=== PATIENT | male | born 1955 | race American Indian/Alaskan Native ===

== ENCOUNTER 2018-02-19 14:27 | Inpatient (IN) | payer MEDICAID, MEDICARE ==
[2018-02-19] MEDS ORDERED: NACL 0.9% 1000 ML 1,000 ML IV ONE (14:39)
--- NOTE | 2018-02-19 14:45 | Emergency Department Report ---
ED GI Bleed HPI - General Chief complaint: GI Bleed Stated complaint: GI BLEED Time Seen by Provider: 02/19/18 14:44 Source: patient, EMS Mode of arrival: Stretcher Limitations: Physical Limitation, Other - History of Present Illness Initial comments: 62-year-old male presents to the ER for bright red blood via rectum. Patient states that he was at his custodial and noticed a large bowel movement of blood in his bed. Patient was then transported via EMS from a nurse come to the ER for evaluation. Patient denies abdominal pain. Patient denies any vomiting. Patient denies fever chills. Patient denies chest pain shortness of breath. She is currently taking aspirin and senia GANDHI complaint: gross hematochezia -: Sudden Consistency: constant Improves with: none Worsens with: none Context: blood thinners Associated Symptoms: denies: abdominal pain, nausea, vomiting, epistaxis, fever/ chills, headaches, loss of appetite, malaise, easy bruising, rash, other bleeding, shortness of breath, syncope, weakness - Related Data Allergies Allergy/AdvReac Type Severity Reaction Status Date / Time linezolid Allergy Unknown Verified 02/19/18 14:30 morphine Allergy Unknown Verified 02/19/18 14:30 vancomycin Allergy Unknown Verified 02/19/18 14:30 ED Review of Systems ROS: Stated complaint: GI BLEED Other details as noted in HPI Constitutional: denies: chills, fever Eyes: denies: eye pain, eye discharge, vision change ENT: denies: ear pain, throat pain Respiratory: denies: cough, shortness of breath, wheezing Cardiovascular: denies: chest pain, palpitations Endocrine: no symptoms reported Gastrointestinal: denies: abdominal pain, nausea, diarrhea Genitourinary: denies: urgency, dysuria Musculoskeletal: denies: back pain, joint swelling, arthralgia Skin: denies: rash, lesions Neurological: denies: headache, weakness, paresthesias Psychiatric: denies: anxiety, depression Hematological/Lymphatic: denies: easy bleeding, easy bruising ED Past Medical Hx - Past Medical History Previous Medical History?: Yes Hx Hypertension: Yes Hx Diabetes: Yes Hx Renal Disease: Yes (ARF) Additional medical history: encephalopathy. afib. Chronic respiratory Failure - Surgical History Past Surgical History?: No - Family History Family history: hypertension - Social History Smoking Status: Former Smoker Substance Use Type: Alcohol ED Physical Exam - General Limitations: Physical Limitation, Other General appearance: alert, in no apparent distress - Head Head exam: Present: atraumatic, normocephalic - Eye Eye exam: Present: normal appearance - ENT ENT exam: Present: mucous membranes moist - Neck Neck exam: Present: normal inspection - Respiratory Respiratory exam: Present: normal lung sounds bilaterally. Absent: respiratory distress - Cardiovascular Cardiovascular Exam: Present: regular rate, normal rhythm. Absent: systolic murmur, diastolic murmur, rubs, gallop - GI/Abdominal GI/Abdominal exam: Present: soft, normal bowel sounds - Rectal Rectal exam: Present: deferred - Extremities Exam Extremities exam: Present: normal inspection - Back Exam Back exam: Present: normal inspection - Neurological Exam Neurological exam: Present: alert, oriented X3 - Psychiatric Psychiatric exam: Present: normal affect, normal mood - Skin Skin exam: Present: warm, dry, intact, normal color. Absent: rash ED Course Vital Signs 02/19/18 02/19/18 02/19/18 14:38 15:15 15:20 Temperature 98.9 F 98.8 F Pulse Rate 108 H 78 Respiratory 20 22 25 H Rate Blood Pressure Blood Pressure 134/59 118/74 [Right] O2 Sat by Pulse 99 67 L 97 Oximetry 02/19/18 02/19/18 02/19/18 15:37 15:45 16:00 Temperature Pulse Rate 78 79 Respiratory 20 14 13 Rate Blood Pressure 111/82 117/82 Blood Pressure [Right] O2 Sat by Pulse 100 97 Oximetry 02/19/18 02/19/18 02/19/18 16:15 16:30 16:45 Temperature Pulse Rate 91 H 104 H 95 H Respiratory 19 16 12 Rate Blood Pressure 106/70 113/73 113/75 Blood Pressure [Right] O2 Sat by Pulse 96 99 99 Oximetry 02/19/18 02/19/18 02/19/18 17:20 17:30 18:22 Temperature Pulse Rate 99 H 100 H 83 Respiratory 19 19 Rate Blood Pressure 123/76 120/69 Blood Pressure [Right] O2 Sat by Pulse 93 100 Oximetry 02/19/18 02/19/18 02/19/18 18:50 19:05 19:35 Temperature 98.0 F 98.7 F 98.5 F Pulse Rate 92 H 92 H 87 Respiratory 18 17 16 Rate Blood Pressure 133/82 112/78 120/64 Blood Pressure [Right] O2 Sat by Pulse 98 99 99 Oximetry - Reevaluation(s) Reevaluation #1: Patient hypoxic upon arrival to the ER. Patient was placed on BiPAP. 02/19/18 14:45 H and has improved and is maintaining a good sat 98% on BiPAP. 02/19/18 16:16 Reevaluation #2: Plan of care with patient and family. Patient and family. Plan of care and admission. Patient was admitted to the hospitalist service for further evaluation. 02/19/18 16:28 - Consultations Consultation #1: Os was consulted for admission. Hospitalist to assume care. Dr. Duffy to admit patient 02/19/18 16:28 Consultation #2: Stress case with GI. Patient to be admitted to the hospitalist service and GI will consult on him in the morning. GI recommends 2 units and vit k and monitoring the CBC. Full report given to Dr. Galvin 02/19/18 17:18 02/19/18 17:20 ED Medical Decision Making - Lab Data Result diagrams: 02/19/18 14:57 02/19/18 14:57 - EKG Data -: EKG Interpreted by Oh EKG shows normal: axis, intervals, QRS complexes, ST-T waves Rate: tachycardia - EKG Data Interpretation: other (afib/ ) - Radiology Data Radiology results: report reviewed FINAL REPORT EXAM: CT ABDOMEN PELVIS WO CON HISTORY: gi bleed TECHNIQUE: CT examination of the ABDOMEN without IV contrast CT examination of the PELVIS without IV contrast PRIORS: None. FINDINGS: Degenerative change in the regional skeleton. No evidence of acute fracture or significant osseous lesion. Small bilateral pleural effusions layer posteriorly, slightly more prominent on the left. There is adjacent bilateral lung base atelectasis and/or pneumonia, slightly more prominent on the left. Slight coronary artery calcification. Normal noncontrast appearance of the liver, adrenals, pancreas, and spleen. Normal caliber abdominal aorta with slight calcified atherosclerotic plaque. Normal caliber IVC. Subtle calcification in the gallbladder lumen may be small gallstones. No biliary distention. Large body habitus limits the examination. Increased soft tissue attenuates the CT x-ray beam and degrades image quality. Visible kidneys and ureters appear normal. Intact abdominal wall. With large body habitus, left lateral abdomen is partially excluded from the field of view, limiting the examination. Small fat containing bilateral inguinal hernia. Small fat containing umbilical hernia. No retroperitoneal adenopathy. No mesenteric mass. Normal-appearing stomach and duodenum. No small bowel distention in the abdomen and pelvis. No pelvic free fluid. Normal-appearing urinary bladder, prostate, and seminal vesicles. Nonspecific mural thickening in the distal rectum. No visible mass in the colon. Gross gas-filled distention of the sigmoid colon and transverse colon. There is also gross gas-filled distention of the ascending colon. No evidence of free air or gross ascites. Gas-filled distention of the cecum. Normal-appearing terminal ileum and appendix. No CT evidence of visible obstructing source. IMPRESSION: Nonspecific mural thickening in the distal rectum may be secondary to proctitis. Differential includes neoplasm Diffuse gas-filled distention of the ascending and transverse colon as well as sigmoid colon without CT evidence of obstructing source. This may reflect severe paralytic ileus Small bilateral pleural effusions with adjacent lung base atelectasis and/or pneumonia, slightly more prominent on the left Coronary artery calcification Subtle gallbladder calcification may be small gallstones Large body habitus limits the examination Small fat containing hernias Transcribed By: BAL Dictated By: DALTON HARRINGTON MD Electronically Authenticated By: DALTON HARRINGTON MD Signed Date/Time: 02/19/18 3644 - Medical Decision Making Patient is 62-year-old male who presents to emergency room with bright red blood per rectum. Patient has a lower GI bleed. GI has been consulted. Hospitalist service has been consulted for admission. Patient to be admitted to the hospitalist service for further evaluation and treatment. Patient found to be anemic due to acute blood loss. She will be transfused 2 units of blood and continue to monitor. - Differential Diagnosis gi bleed. brigth red blood per rectum. anemia. Critical Care Time: Yes Critical care attestation.: If time is entered above; I have spent that time in minutes in the direct care of this critically ill patient, excluding procedure time. Critical Care Time: 45 minutes for cc time ED Disposition Clinical Impression: GI bleed, Anemia due to blood loss, acute, Hypoxia, Obesity hypoventilation syndrome, Atrial fibrillation and flutter Respiratory failure Qualifiers: Chronicity: acute on chronic Respiratory failure complication: hypoxia Qualified Code(s): J96.21 - Acute and chronic respiratory failure with hypoxia HTN (hypertension) Qualifiers: Hypertension type: essential hypertension Qualified Code(s): I10 - Essential ( primary) hypertension Disposition: 09 OP ADMIT IP TO THIS HOSP Is pt being admited?: Yes Does the pt Need Aspirin: No Condition: Critical Time of Disposition: 16:27
[2018-02-19 15:19] LABS: Basophils % (Auto) 0.6 % (0.0-1.8); Eosinophils # (Auto) 0.1 K/mm3 (0.0-0.4); Eosinophils % (Auto) 1.8 % (0.0-4.3); Hematocrit 24.1 % (35.5-45.6); Hemoglobin 7.8 gm/dl (11.8-15.2); Lymphocytes # (Auto) 1.5 K/mm3 (1.2-5.4); Lymphocytes % (Auto) 20.6 % (13.4-35.0); Mean Corpuscular HGB Conc 32 % (32-34); Mean Corpuscular Hemoglobin 30 pg (28-32); Mean Corpuscular Volume 91 fl (84-94); Monocytes # (Auto) 0.7 K/mm3 (0.0-0.8); Monocytes % (Auto) 9.9 % (0.0-7.3); Platelet Count 347 K/mm3 (140-440); Red Blood Count 2.64 M/mm3 (3.65-5.03); Red Cell Distribution Width 16.4 % (13.2-15.2)
[2018-02-19 15:29] LABS: INR 1.32 (0.87-1.13); Partial Thromboplastin Time 31.9 Sec. (24.2-36.6)
[2018-02-19 15:36] LABS: Alanine Aminotransferase 43 units/L (7-56); Albumin 2.8 g/dL (3.9-5); BUN/Creatinine Ratio 16; Blood Urea Nitrogen 14 mg/dL (9-20); Calcium 9.1 mg/dL (8.4-10.2); Hemolysis Index 0; Lipase 9 units/L (13-60)
--- NOTE | 2018-02-19 16:22 | History and Physical Report ---
History of Present Illness Chief complaint: blood was all over the place History of present illness: 62 YO Male [facility] Facility Resident at [facility] undergoing inpatient rehab with MO, Debility, Lymphedema, Chronic Respiratory Failure, HTN , DM, Atrial Fib on therapeutic anticoagulation, Obesity Hypoventilation presents to ED for evaluation. Pt states that he went to the restroom and had a large bloody bowel movement. EMS notified, and patient transported to [facility] for care and evaluation. Pt seen and evaluated in ED and found to have Chronic Respiratory Failure as well as GI Bleed. Pt denies fever, chills, CP, Palpitations, NVD, Trauma, abdominal pain, epistaxis, headaches, loss of appetite, malaise, easy bruising, rash, shortness of breath, syncope, weakness, skin rash, or recent ill contacts. GI consulted in ED. Pt admitted to medical floor. Past History Past Medical History: atrial fib, diabetes, hypertension Past Surgical History: No surgical history, Other Social history: single Family history: hypertension Medications and Allergies Allergies Allergy/AdvReac Type Severity Reaction Status Date / Time linezolid Allergy Unknown Verified 02/19/18 14:30 morphine Allergy Unknown Verified 02/19/18 14:30 vancomycin Allergy Unknown Verified 02/19/18 14:30 Active Meds: Active Medications Sodium Chloride (Nacl 0.9% 1000 Ml) 1,000 mls @ 250 mls/hr IV ONCE ONE Stop: 02/19/18 18:38 Review of Systems Constitutional: no weight loss, no weight gain, no fever, no chills Ears, nose, mouth and throat: no ear pain, no ear discharge, no tinnitis, no decreased hearing, no nose pain, no nasal congestion Cardiovascular: no chest pain, no orthopnea, no palpitations, no rapid/ irregular heart beat, no edema, no syncope Respiratory: no cough, no cough with sputum, no excessive sputum Gastrointestinal: BRBPR, melena, no nausea, no vomiting, no diarrhea, no coffee ground emesis, no loss of appetite, no early satiety, no heartburn Genitourinary Male: no hematuria, no flank pain, no discharge, no urinary frequency, no urinary hesitancy Rectal: no pain, no incontinence, no bleeding Musculoskeletal: no neck stiffness, no neck pain, no shooting arm pain, no arm numbness/tingling, no low back pain, no shooting leg pain Integumentary: no rash, no pruritis, no redness, no sores, no wounds Neurological: no paralysis, no weakness, no parathesias, no numbness, no tingling, no seizures Psychiatric: no memory loss, no change in sleep habits, no sleep disturbances, no insomnia, no hypersomnia, no change in appetite, no change in libido, no suicidal ideation Endocrine: no heat intolerance, no polyphagia, no excessive thirst, no polydipsia, no polyuria, no nocturia Hematologic/Lymphatic: no easy bruising, no easy bleeding, no lymphadenopathy, no lymphedema Allergic/Immunologic: no urticaria, no allergic rhinitis, no persistent infections, no anaphylaxis, no angioedema Exam - Constitutional Vitals: Temp Pulse Resp BP Pulse Ox 98.8 F 78 14 111/82 100 02/19/18 15:15 02/19/18 15:45 02/19/18 15:45 02/19/18 15:45 02/19/18 15:45 General appearance: Present: mild distress - EENT Eyes: Present: PERRL ENT: hearing intact, clear oral mucosa - Neck Neck: Present: supple, normal ROM - Respiratory Respiratory effort: labored Respiratory: bilateral: diminished - Cardiovascular Rhythm: irregularly irregular - Extremities Extremities: pulses symmetrical, No edema Peripheral Pulses: within normal limits - Abdominal General gastrointestinal: Present: soft, non-tender, non-distended, normal bowel sounds Male genitourinary: Present: normal - Integumentary Integumentary: Present: clear, warm, dry - Musculoskeletal Musculoskeletal: gait normal, strength equal bilaterally - Psychiatric Psychiatric: appropriate mood/affect, intact judgment & insight - Neurologic Neurologic: CNII-XII intact, moves all extremities Results - Labs CBC & Chem 7: 02/19/18 14:57 02/19/18 14:57 Labs: Abnormal lab results 02/19/18 02/19/18 02/19/18 Range/Units 14:57 14:57 14:57 RBC 2.64 L (3.65-5.03) M/mm3 Hgb 7.8 L (11.8-15.2) gm/dl Hct 24.1 L (35.5-45.6) % RDW 16.4 H (13.2-15.2) % [place] % (Auto) 9.9 H (0.0-7.3) % PT 17.1 H (12.2-14.9) Sec. INR 1.32 H (0.87-1.13) Chloride 94.4 L (98-107) mmol/L Carbon Dioxide 41 H* (22-30) mmol/L Glucose 117 H (75-100) mg/dL AST 44 H (5-40) units/L Albumin 2.8 L (3.9-5) g/dL Lipase 9 L (13-60) units/L Assessment and Plan - Patient Problems (1) GI bleed Current Visit: Yes Status: Acute Qualifiers: GI bleed type/associated pathology: anorectal hemorrhage Qualified Code(s) : K62.5 - Hemorrhage of anus and rectum Plan to address problem: CT ABdomen/Pelvis, GI consulted in ED, PPI therapy, repeat cbc in am. Hgb stable , no transfusion at this time. (2) Respiratory failure Current Visit: Yes Status: Acute Qualifiers: Chronicity: acute on chronic Respiratory failure complication: hypoxia Qualified Code(s): J96.21 - Acute and chronic respiratory failure with hypoxia Plan to address problem: NIPPV, supplemental oxygen, pulse oximetry, chest x ray. (3) Obesity hypoventilation syndrome Current Visit: Yes Status: Acute Plan to address problem: NIPPV, supplemental oxygen, supportive care, Incentive spirometry. (4) Atrial fibrillation and flutter Current Visit: Yes Status: Acute Plan to address problem: continue therapeutic anticoagulation, supportive care (5) Diabetes Current Visit: Yes Status: Acute Plan to address problem: AD diet, insulin, accu check (6) HTN (hypertension) Current Visit: Yes Status: Acute Qualifiers: Hypertension type: essential hypertension Qualified Code(s): I10 - Essential (primary) hypertension Plan to address problem: monitor bp q shift, continue prehospital medication. (7) DVT prophylaxis Current Visit: Yes Status: Acute Plan to address problem: continue therapeutic anticoagulation.
[2018-02-19] MEDS ORDERED: SODIUM CHLORIDE FLUSH SYRINGE 10 ML IV PRN (17:01)
[2018-02-19] MEDS ORDERED: TYLENOL PO PRN (17:01)
[2018-02-19] MEDS ORDERED: ZOFRAN IV PRN (17:01)
[2018-02-19] MEDS ORDERED: PROVENTIL IH PRN (17:01)
[2018-02-19] MEDS ORDERED: NACL 0.9% 500 ML 500 ML IV ONE (17:19)
--- NOTE | 2018-02-19 17:57 | Cat Scan Report ---
FINAL REPORT EXAM: CT ABDOMEN PELVIS WO CON HISTORY: gi bleed TECHNIQUE: CT examination of the ABDOMEN without IV contrast CT examination of the PELVIS without IV contrast PRIORS: None. FINDINGS: Degenerative change in the regional skeleton. No evidence of acute fracture or significant osseous lesion. Small bilateral pleural effusions layer posteriorly, slightly more prominent on the left. There is adjacent bilateral lung base atelectasis and/or pneumonia, slightly more prominent on the left. Slight coronary artery calcification. Normal noncontrast appearance of the liver, adrenals, pancreas, and spleen. Normal caliber abdominal aorta with slight calcified atherosclerotic plaque. Normal caliber IVC. Subtle calcification in the gallbladder lumen may be small gallstones. No biliary distention. Large body habitus limits the examination. Increased soft tissue attenuates the CT x-ray beam and degrades image quality. Visible kidneys and ureters appear normal. Intact abdominal wall. With large body habitus, left lateral abdomen is partially excluded from the field of view, limiting the examination. Small fat containing bilateral inguinal hernia. Small fat containing umbilical hernia. No retroperitoneal adenopathy. No mesenteric mass. Normal-appearing stomach and duodenum. No small bowel distention in the abdomen and pelvis. No pelvic free fluid. Normal-appearing urinary bladder, prostate, and seminal vesicles. Nonspecific mural thickening in the distal rectum. No visible mass in the colon. Gross gas-filled distention of the sigmoid colon and transverse colon. There is also gross gas-filled distention of the ascending colon. No evidence of free air or gross ascites. Gas-filled distention of the cecum. Normal-appearing terminal ileum and appendix. No CT evidence of visible obstructing source. IMPRESSION: Nonspecific mural thickening in the distal rectum may be secondary to proctitis. Differential includes neoplasm Diffuse gas-filled distention of the ascending and transverse colon as well as sigmoid colon without CT evidence of obstructing source. This may reflect severe paralytic ileus Small bilateral pleural effusions with adjacent lung base atelectasis and/or pneumonia, slightly more prominent on the left Coronary artery calcification Subtle gallbladder calcification may be small gallstones Large body habitus limits the examination Small fat containing hernias
[2018-02-19] MEDS ORDERED: NACL 0.9% 500 ML 500 ML ONE (18:15)
[2018-02-20] MEDS: PROTONIX IV SCH ×3 (00:01→22:05)
[2018-02-20] MEDS: SODIUM CHLORIDE FLUSH SYRINGE 10 ML IV SCH ×3 (00:01→22:30)
[2018-02-20] MEDS ORDERED: NACL 0.9% 500 ML 500 ML ONE ×2 (01:15→20:46)
[2018-02-20] MEDS ORDERED: NACL 0.9% 500 ML IV ONE (01:25)
[2018-02-20 07:05] LABS: Basophils % (Auto) 0.3 % (0.0-1.8); Eosinophils # (Auto) 0.2 K/mm3 (0.0-0.4); Eosinophils % (Auto) 2.7 % (0.0-4.3); Hematocrit 24.3 % (35.5-45.6); Hemoglobin 8.3 gm/dl (11.8-15.2); Lymphocytes # (Auto) 1.6 K/mm3 (1.2-5.4); Mean Corpuscular HGB Conc 34 % (32-34); Mean Corpuscular Hemoglobin 31 pg (28-32); Mean Corpuscular Volume 91 fl (84-94); Monocytes # (Auto) 0.8 K/mm3 (0.0-0.8); Monocytes % (Auto) 10.8 % (0.0-7.3); Platelet Count 329 K/mm3 (140-440); Red Blood Count 2.67 M/mm3 (3.65-5.03); Red Cell Distribution Width 16.7 % (13.2-15.2)
[2018-02-20 07:27] LABS: BUN/Creatinine Ratio 17; Blood Urea Nitrogen 15 mg/dL (9-20); Calcium 9.1 mg/dL (8.4-10.2); Hemolysis Index 11
--- NOTE | 2018-02-20 09:50 | Gastroenterology Consultation ---
History of Present Illness - Reason for Consult Consult date: 02/20/18 GI bleed Requesting physician: SHAKIRA MCKNIGHT III - History of Present Illness Patient is a 62 y/o male with PMH of HTN, DM, A-fib, obesity, lymphedema, and chronic respiratory failure who was brought from [facility] where he is undergoing inpatient rehab for c/o rectal bleeding to which GI has been consulted. Upon admission, he was found to be hypoxic and anemic with H/H 7.8/ 24.1. He was given 2 units PRBCs and placed on BIPAP. This morning patient was resting in bed on venimask w/o acute distress. Reports 1 BM yesterday with dark red mixed with bright red blood. No further active signs of bleeding overnight or this am. No hematemesis or melena. Denies fever, CP, SOB, dizziness, abd pain , N/V, diarrhea, or constipation. States he had a colonoscopy approximately 3-4 years ago at the [facility] with negative results. No known Fhx of colon cancer. Takes ASA and xarelto at home (last dose yesterday). Past History Past Medical History: atrial fib, diabetes, hypertension, other (morbid obesity , lymphedema, and chronic respiratory failure) Past Surgical History: No surgical history Social history: single Family history: hypertension Medications and Allergies Allergies Allergy/AdvReac Type Severity Reaction Status Date / Time linezolid Allergy Unknown Verified 02/19/18 14:30 morphine Allergy Unknown Verified 02/19/18 14:30 vancomycin Allergy Unknown Verified 02/19/18 14:30 Active Meds: Active Medications Acetaminophen (Tylenol) 650 mg PO Q4H PRN PRN Reason: Pain MILD(1-3)/Fever >100.5/MARES Albuterol (Proventil) 2.5 mg IH Q4HRT PRN PRN Reason: Shortness Of Breath Ondansetron HCl (Zofran) 4 mg IV Q8H PRN PRN Reason: Nausea And Vomiting Pantoprazole Sodium (Protonix) 40 mg IV BID [facility] Last Admin: 02/20/18 00:01 Dose: 40 mg Sodium Chloride (Sodium Chloride Flush Syringe 10 Ml) 10 ml IV BID [facility] Last Admin: 02/20/18 00:01 Dose: 10 ml Sodium Chloride (Sodium Chloride Flush Syringe 10 Ml) 10 ml IV PRN PRN PRN Reason: LINE FLUSH Review of Systems - Review of Systems All systems: negative Gastrointestinal: hematochezia Exam - Constitutional Vital Signs: Temp Pulse Resp BP Pulse Ox 98.3 F 110 H 18 114/73 97 02/20/18 05:11 02/20/18 05:11 02/20/18 05:11 02/20/18 05:11 02/20/18 05:11 General appearance: no acute distress, obese (morbidly) - Respiratory Respiratory: bilateral: diminished - Cardiovascular Rhythm: irregularly irregular Extremity abnormal: other (dressing to LLE) - Gastrointestinal General gastrointestinal: Present: soft, non-tender, non-distended, normal bowel sounds, other (obese) - Neurologic Neurological: alert and oriented x3 - Labs CBC & Chem 7: 02/20/18 06:01 02/20/18 06:01 Lab Results: Laboratory Results - last 24 hr 02/19/18 02/19/18 02/19/18 14:57 14:57 14:57 WBC 7.2 RBC 2.64 L Hgb 7.8 L Hct 24.1 L MCV 91 MCH 30 MCHC 32 RDW 16.4 H Plt Count 347 Lymph % (Auto) 20.6 Ellis % (Auto) 9.9 H Eos % (Auto) 1.8 Baso % (Auto) 0.6 Lymph # 1.5 Ellis # 0.7 Eos # 0.1 Baso # 0.0 Seg Neutrophils % 67.1 Seg Neutrophils # 4.9 PT 17.1 H INR 1.32 H APTT 31.9 Sodium 139 Potassium 4.6 Chloride 94.4 L Carbon Dioxide 41 H* Anion Gap 8 BUN 14 Creatinine 0.9 Estimated GFR > 60 BUN/Creatinine Ratio 16 Glucose 117 H Calcium 9.1 Total Bilirubin 0.30 AST 44 H ALT 43 Alkaline Phosphatase 93 Total Protein 7.7 Albumin 2.8 L Albumin/Globulin Ratio 0.6 Lipase 9 L Blood Type Antibody Screen Crossmatch 02/19/18 02/20/18 02/20/18 14:57 06:01 06:01 WBC 7.8 RBC 2.67 L Hgb 8.3 L Hct 24.3 L MCV 91 MCH 31 MCHC 34 RDW 16.7 H Plt Count 329 Lymph % (Auto) 21.0 Ellis % (Auto) 10.8 H Eos % (Auto) 2.7 Baso % (Auto) 0.3 Lymph # 1.6 Ellis # 0.8 Eos # 0.2 Baso # 0.0 Seg Neutrophils % 65.2 Seg Neutrophils # 5.1 PT INR APTT Sodium 145 Potassium 4.2 Chloride 96.6 L Carbon Dioxide 39 H Anion Gap 14 BUN 15 Creatinine 0.9 Estimated GFR > 60 BUN/Creatinine Ratio 17 Glucose 93 Calcium 9.1 Total Bilirubin AST ALT Alkaline Phosphatase Total Protein Albumin Albumin/Globulin Ratio Lipase Blood Type O POSITIVE Antibody Screen Negative Crossmatch See Detail Assessment and Plan 1.hematochezia -HGB 8.3- s/p transfusion of 2 units PRBCs -continue to monitor H/H and transfuse as needed -continue to hold xarelto -BM x 1 yesterday with a large amount of dark red/bright red blood per patient- no active signs of bleeding overnight or this am -last colonoscopy approximately 3-4 years ago at the [facility] with negative results -CT showed mural thickening in the distal rectum (possibly proctitis vs neoplasm ) -etiology unclear -recommend a colonoscopy for further evaluation once respiratory status improves -continue PPI and supportive care -will follow
--- NOTE | 2018-02-20 11:23 | Event Note ---
Date: 02/20/18 Nursing called and reported patient having copious amount of rectal bleeding with bright red blood. Will order a stat CTA for further evaluation. May need IR intervention pending results. Recommend patient be transferred to ICU for closer monitoring. Called and spoke with Dr. James to notify him of patient's current condition.
--- NOTE | 2018-02-20 11:47 | Progress Note ---
Assessment and Plan Assessment and plan: Patient is a 62 yo man from [facility] with a history of functional quadriplegia x 2-3 months from [place], Debility, BLE Lymphedema, Chronic hypoxic Respiratory Failure, HTN, DM, Atrial Fib on therapeutic anticoagulation, Obesity Hypoventilation and LEYDI on cpap (he says all the time) who present to ED with BRBPR. He was transfused 2 units of PRBC and hgb only slightly increased. Now with recurrent significant bleeding scan -Acute GI hemorrhage, suspect Diverticular bleed: d/w GI, Dr. Galvin. CTA or NM bleeding scan, will move to ICU, I notified Dr. Velasquez. Dr. Galvin will contact Dr. Reyes -Acute on chronic blood loss anemia s/p 2 units: will transfuse 2 more units due to active bleeding and move to ICU -Acute on chronic hypoxic respiratory failure: continue O2, consulted Respiratory, ordered nebs, consulted Pulmonology -Severe Obesity, 336 lbs: ? weight limit for CTA vs NM study -Afib/Aflutter, no meds listed in EMR, history of anticoagulation but INR ok: will investigate, d/w Rn -Obesity hypoventilation syndrome/LEYDI: cpap and bipap if needed, consulted Respiratory therapy -Diabetes Mellitus: ssi -HTN (hypertension): monitor bp q shift, continue prehospital medication. -DVT prophylaxis: scd due to gib -Functional quadreplegia: consult OT/PT -Leg wounds: consult wound care full code Move to ICU transfuse 2 more units of prbx CCT 32 minutes History Interval history: Patient was seen and examined. Follow-up on current diagnosis of rectal bleeding. Overnight uneventful. Patient denies any chest pain, shortness breath , nausea/vomiting or severe headaches. Imaging, nursing note, chart, labs and old chart reviewed. Discussed with patient. Initially when I saw patient the rectal bleeding had stopped then GI [employer] TECHNICIAN Anusha called and informed me that the rectal bleeding had returned and he needs ICU admission and cTA abd/pelvis. Hospitalist Physical - Physical exam Narrative exam: GEN: severe chronically debilated appearing, morbid obese bmi 45, mild increase accessory muscles, awake alert orientated HEENT: NCAT, EOMI, PERRL, OP Clear NECK: supple, no adenopathy, no thyromegaly, no JVD CVS/HEART: irregular tachycardia, normal S1S2, pulses present bilaterally CHEST/LUNGS: diminished bs bilateral, Symmetrical chest expansion, good air entry bilaterally GI/Abdomen: soft, NTND, good bowel sounds, no guarding or rebound /Bladder: no suprapubic tenderness, no CVA or paraspinal tenderness EXT/Skin: abrasion on forehead, bilateral knuckles/hands are peeling, legs with severe chronic stasis with lymphedema and wound dsg left leg MSK: lrom leg, left leg with dressing Neuro: CN 2-12 grossly intact, no new focal deficits Psych: calm - Constitutional Vitals: Temp Pulse Resp BP Pulse Ox 98.3 F 110 H 18 114/73 96 02/20/18 05:11 02/20/18 05:11 02/20/18 05:11 02/20/18 05:11 02/20/18 10:00 General appearance: Present: mild distress Results - Labs CBC & Chem 7: 02/20/18 06:01 02/20/18 06:01 Labs: Laboratory Last Values WBC 7.8 K/mm3 (4.5-11.0) 02/20/18 06:01 RBC 2.67 M/mm3 (3.65-5.03) L 02/20/18 06:01 Hgb 8.3 gm/dl (11.8-15.2) L 02/20/18 06:01 Hct 24.3 % (35.5-45.6) L 02/20/18 06:01 MCV 91 fl (84-94) 02/20/18 06:01 MCH 31 pg (28-32) 02/20/18 06:01 MCHC 34 % (32-34) 02/20/18 06:01 RDW 16.7 % (13.2-15.2) H 02/20/18 06:01 Plt Count 329 K/mm3 (140-440) 02/20/18 06:01 Lymph % (Auto) 21.0 % (13.4-35.0) 02/20/18 06:01 [place] % (Auto) 10.8 % (0.0-7.3) H 02/20/18 06:01 Eos % (Auto) 2.7 % (0.0-4.3) 02/20/18 06:01 Baso % (Auto) 0.3 % (0.0-1.8) 02/20/18 06:01 Lymph # 1.6 K/mm3 (1.2-5.4) 02/20/18 06:01 [place] # 0.8 K/mm3 (0.0-0.8) 02/20/18 06:01 Eos # 0.2 K/mm3 (0.0-0.4) 02/20/18 06:01 Baso # 0.0 K/mm3 (0.0-0.1) 02/20/18 06:01 Seg Neutrophils % 65.2 % (40.0-70.0) 02/20/18 06:01 Seg Neutrophils # 5.1 K/mm3 (1.8-7.7) 02/20/18 06:01 PT 17.1 Sec. (12.2-14.9) H 02/19/18 14:57 INR 1.32 (0.87-1.13) H 02/19/18 14:57 APTT 31.9 Sec. (24.2-36.6) 02/19/18 14:57 Sodium 145 mmol/L (137-145) 02/20/18 06:01 Potassium 4.2 mmol/L (3.6-5.0) 02/20/18 06:01 Chloride 96.6 mmol/L (98-107) L 02/20/18 06:01 Carbon Dioxide 39 mmol/L (22-30) H 02/20/18 06:01 Anion Gap 14 mmol/L 02/20/18 06:01 BUN 15 mg/dL (9-20) 02/20/18 06:01 Creatinine 0.9 mg/dL (0.8-1.5) 02/20/18 06:01 Estimated GFR > 60 ml/min 02/20/18 06:01 BUN/Creatinine Ratio 17 % 02/20/18 06:01 Glucose 93 mg/dL (75-100) 02/20/18 06:01 Calcium 9.1 mg/dL (8.4-10.2) 02/20/18 06:01 Total Bilirubin 0.30 mg/dL (0.1-1.2) 02/19/18 14:57 AST 44 units/L (5-40) H 02/19/18 14:57 ALT 43 units/L (7-56) 02/19/18 14:57 Alkaline Phosphatase 93 units/L (35-129) 02/19/18 14:57 Total Protein 7.7 g/dL (6.3-8.2) 02/19/18 14:57 Albumin 2.8 g/dL (3.9-5) L 02/19/18 14:57 Albumin/Globulin Ratio 0.6 % 02/19/18 14:57 Lipase 9 units/L (13-60) L 02/19/18 14:57 Blood Type O POSITIVE 02/19/18 14:57 Antibody Screen Negative 02/19/18 14:57 Crossmatch See Detail 02/19/18 14:57
[2018-02-20] MEDS ORDERED: NACL 0.9% 500 ML 500 ML IV NR (12:30)
[2018-02-20 13:54] LABS: Hematocrit 25.1 % (35.5-45.6); Hemoglobin 8.1 gm/dl (11.8-15.2)
[2018-02-20] MEDS: DUONEB *Not for PRN Use IH SCH ×2 (17:12→20:02)
--- NOTE | 2018-02-20 17:23 | Cat Scan Report ---
FINAL REPORT EXAM: CT ANGIO ABDOMEN PELVIS HISTORY: rectal bleeding TECHNIQUE: Spiral CTA of the abdomen and pelvis after the uneventful administration of IV contrast. Multiplanar reformations. 3D image post-procesessing was performed on an independent work station. PRIORS: Noncontrast CT abdomen and pelvis, 19 February 2018. FINDINGS: Arteriogram: Patient body habitus limits examination somewhat. Normal enhancement of the abdominal aorta. No abnormal aneurysmal dilatation, aortic dissection, or significant stenosis. Celiac axis, SMA and renal arteries demonstrate normal enhancement without significant stenosis. No retroperitoneal hematoma. Abdomen: Visualized lung bases again show patchy and partially confluent opacities, with air bronchograms and minimal bilateral pleural effusions, left greater than right, about the same. Possible tiny calcifications or mural calcification in the gallbladder neck without significant pericholecystic fluid. Liver without significant abnormality. Spleen without significant abnormality. Pancreas without significant abnormality. Kidneys without significant abnormality. Adrenal glands without significant abnormality. Pelvis: Diffuse colonic distension containing mostly gas, fluid and some semi-solid stool without discrete transition point, most pronounced in the ascending and transverse colon, about the same. No apparent pneumatosis. Wall thickening described previously in the anorectal region less conspicuous. Remainder of bowel grossly unremarkable. Appendix within normal limits. No significant free peritoneal fluid, discrete abscess or apparent adenopathy. Mild degenerative change in the lumbar spine. Variable, fat-containing umbilical and bilateral inguinal hernias again noted. IMPRESSION: 1. No aortic aneurysm or apparent dissection. 2. Nonspecific bowel gas pattern suggesting colonic ileus, which may be associated with nonspecific postinflammatory change, including diarrhea or enteritis. Distal obstructing lesion not confidently identified, but not completely excluded due to limitations of the examination. Clinical correlation and followup suggested, as warranted. 3. Possible cholelithiasis. 4. Findings which may represent bibasilar atelectasis, mild infiltrates or postinflammatory change and minimal bilateral pleural effusions similar to comparison. Correlate clinically.
[2018-02-20 20:19] LABS: Hepatitis B Core IgM Non-Reactive (NonReactive); Hepatitis B Surface Antigen Non-Reactive (Negative); Hepatitis C Virus Antibody Non-Reactive (NonReactive)
[2018-02-20] MEDS: CORDARONE PO SCH (21:54)
[2018-02-21 07:18] LABS: Hematocrit 25.7 % (35.5-45.6); Hemoglobin 8.4 gm/dl (11.8-15.2); Mean Corpuscular HGB Conc 33 % (32-34); Mean Corpuscular Hemoglobin 29 pg (28-32); Mean Corpuscular Volume 88 fl (84-94); Platelet Count 305 K/mm3 (140-440); Red Blood Count 2.91 M/mm3 (3.65-5.03); Red Cell Distribution Width 19.8 % (13.2-15.2)
[2018-02-21] MEDS: DUONEB *Not for PRN Use IH SCH ×3 (08:17→21:27)
[2018-02-21] MEDS: PROTONIX IV SCH ×2 (09:40→22:41)
[2018-02-21] MEDS: SODIUM BICARBONATE PO SCH (09:40)
[2018-02-21] MEDS: CORDARONE PO SCH (09:40)
[2018-02-21] MEDS: SODIUM CHLORIDE FLUSH SYRINGE 10 ML IV SCH ×2 (09:40→22:42)
--- NOTE | 2018-02-21 10:07 | Gastroenterology Progress Note ---
Assessment and Plan - Patient Problems (1) LGI bleed Current Visit: Yes Status: Acute Plan to address problem: Bleeding appears to be subsiding. Passed old appearing blood once on the prepleater. He has rec'd 4 units of PRBCs. Hemodynamically stable. I spoke with the IR specialist, Dr. Reyes, who has reviewed the CTA and reports the absence of any signs of bleeding. Will advance to [facility]. Care d/w with Dr. Velasquez. F/ U H&H at 2 PM today. (2) Atrial fibrillation and flutter Current Visit: Yes Status: Acute (3) Diabetes Current Visit: Yes Status: Acute (4) Obesity hypoventilation syndrome Current Visit: Yes Status: Acute Subjective Date of service: 02/21/18 Principal diagnosis: LGI bleeding Interval history: The patient reports feeling better. He has not passed a stool for at least 6-8 hours. The stool was dark according to nurse report. He denies any pain. Objective - Constitutional Vitals: Temp Pulse Resp BP Pulse Ox 98.7 F 97 H 18 133/87 97 02/21/18 04:00 02/21/18 08:17 02/21/18 08:17 02/21/18 06:00 02/21/18 08:18 General appearance: no acute distress, obese - EENT ENT: hearing intact, clear oral mucosa - Respiratory Respiratory effort: normal Respiratory: bilateral: CTA - Cardiovascular Rhythm: regular - Gastrointestinal General gastrointestinal: Present: soft, non-tender, non-distended, normal bowel sounds, other (morbidly obese) - Integumentary Integumentary: Present: clear, warm, dry - Neurologic Neurological: alert and oriented x3 - Labs CBC & Chem 7: 02/21/18 06:50 02/20/18 06:01 Labs: Laboratory Results - last 24 hr 02/19/18 02/20/18 02/20/18 14:57 13:21 19:22 WBC RBC Hgb 8.1 L Hct 25.1 L MCV MCH MCHC RDW Plt Count POC Glucose Hep Bs Antigen Non-reactive Hep B Core IgM Ab Non-reactive Hepatitis C Antibody Non-reactive HIV 1&2 Antibody Rapid HIV P24 Antigen Blood Type O POSITIVE Antibody Screen Negative Crossmatch See Detail 02/20/18 02/21/18 02/21/18 19:22 06:23 06:50 WBC 10.3 RBC 2.91 L Hgb 8.4 L Hct 25.7 L MCV 88 MCH 29 MCHC 33 RDW 19.8 H Plt Count 305 POC Glucose 97 Hep Bs Antigen Hep B Core IgM Ab Hepatitis C Antibody HIV 1&2 Antibody Rapid Non react HIV P24 Antigen Non react Blood Type Antibody Screen Crossmatch
--- NOTE | 2018-02-21 10:09 | Event Note ---
Date: 02/21/18 Contacted regarding Mr Taylor yesterday and patient had CTA of the abdomen and pelvis with delayed imaging. No precontrast imaging was obtained due to concern about overheating the CT machine. Patient is incredibly morbidly obese making care of the patient complicated. His listed weight is incorrect and patient is larger per staff and close to 450 which places him near weight limits of most equipment. CTA demonstrated no clear evidence of extravasation or pseudoaneurysm in the GI tract and contrast layering in his large bowel was present on precontrast imaging 1 day previously. The small amount of oral contrast in the did not increase in size with delayed imaging. Given recent anticoagulation (xarelto), would hope for a course that does not include intervention as he approaches weight limits of most equipment which complicates care. Weight decreases ability to penetrate patient during fluoroscopy using interventional methods and increases his risk of access site complications. If patient bleeds again, then recommend GI bleeding scan if patient's body habitus allows.
--- NOTE | 2018-02-21 10:47 | Progress Note ---
Assessment and Plan Assessment and plan: Patient is a 62 yo man from [facility] with a history of functional quadriplegia x 2-3 months from [place], Debility, BLE Lymphedema, Chronic hypoxic Respiratory Failure, HTN, DM, Atrial Fib on therapeutic anticoagulation, Obesity Hypoventilation and LEYDI on cpap who presented to ED with BRBPR. He was transfused 2 units of PRBC and hgb only slightly increased. Then he had re- bleeding and sent to ICU and another 2 units of prbc given. * CTA abd/pelvis IMPRESSION: 1. No aortic aneurysm or apparent dissection. 2. Nonspecific bowel gas pattern suggesting colonic ileus, which may be associated with nonspecific postinflammatory change, including diarrhea or enteritis. Distal obstructing lesion not confidently identified, but not completely excluded due to limitations of the examination. Clinical correlation and followup suggested, as warranted. 3. Possible cholelithiasis. 4. Findings which may represent bibasilar atelectasis, mild infiltrates or postinflammatory change and minimal bilateral pleural effusions similar to comparison. Correlate clinically. -Acute GI hemorrhage, suspect Diverticular bleed s/p 4 units: H/H stable today, GI, and IR following, if he re-bleeds again will need NM bleeding scan if table can support his weight. -Acute on chronic blood loss anemia s/p 4 units: monitor h/h closely -Acute on chronic hypoxic respiratory failure: continue O2, consulted Respiratory, ordered nebs, consulted Pulmonology -Severe Obesity, approx. 371 lbs: ? weight limit for CTA vs NM study -Afib/Aflutter, patient on NOVEL anticoagulation, will hold, coags ok -Obesity hypoventilation syndrome/LEYDI: cpap and bipap if needed, consulted Respiratory therapy -Diabetes Mellitus: ssi -HTN (hypertension): monitor bp q shift, continue prehospital medication. -DVT prophylaxis: scd due to gib -Functional quadreplegia: consult OT/PT -Multiple skin wounds, pressure ulcers, leg ulcer: wound care full code I spoke with Family yesterday around 6:30pm. They mentioned that patient had a prolonged hospitalization at the [facility] then recently transferred to [facility]. They attributed the rectal tube as the cause of the bleeding. History Interval history: Patient was seen and examined. Follow-up on current diagnosis of rectal bleeding. Overnight uneventful. Patient denies any chest pain, shortness breath , nausea/vomiting or severe headaches. Imaging, nursing note, chart, labs and old chart reviewed. Discussed with patient. Patient currently in ICU room 263. He has no new complaints. He says that he has not had anymore rectal bleeding because he hasn't had a bowel movement. Hospitalist Physical - Physical exam Narrative exam: GEN: severe chronically debilitated appearing, morbid obese bmi 49, approx 371 lbs, NAD, awake alert orientated x 3 HEENT: NCAT, abrasion on forehead, EOMI, PERRL, OP Clear NECK: supple, no adenopathy, no thyromegaly, no JVD CVS/HEART: irregular tachycardia, normal S1S2, pulses present bilaterally CHEST/LUNGS: diminished bs bilateral, Symmetrical chest expansion, good air entry bilaterally GI/Abdomen: soft, NTND, good bowel sounds, no guarding or rebound /Bladder: no suprapubic tenderness, no CVA or paraspinal tenderness EXT/Skin: abrasion on forehead, bilateral knuckles/hands are peeling, legs with severe chronic stasis, lymphedema and wound dsg left leg MSK: lrom legs, left leg with dressing Neuro: CN 2-12 grossly intact, no new focal deficits Psych: calm - Constitutional Vitals: Temp Pulse Resp BP Pulse Ox 98.7 F 108 H 28 H 111/46 99 02/21/18 04:00 02/21/18 10:11 02/21/18 10:11 02/21/18 10:11 02/21/18 10:11 General appearance: Absent: mild distress Results - Labs CBC & Chem 7: 02/21/18 06:50 02/20/18 06:01 Labs: Laboratory Last Values WBC 10.3 K/mm3 (4.5-11.0) 02/21/18 06:50 RBC 2.91 M/mm3 (3.65-5.03) L 02/21/18 06:50 Hgb 8.4 gm/dl (11.8-15.2) L 02/21/18 06:50 Hct 25.7 % (35.5-45.6) L 02/21/18 06:50 MCV 88 fl (84-94) 02/21/18 06:50 MCH 29 pg (28-32) 02/21/18 06:50 MCHC 33 % (32-34) 02/21/18 06:50 RDW 19.8 % (13.2-15.2) H 02/21/18 06:50 Plt Count 305 K/mm3 (140-440) 02/21/18 06:50 Lymph % (Auto) 21.0 % (13.4-35.0) 02/20/18 06:01 [place] % (Auto) 10.8 % (0.0-7.3) H 02/20/18 06:01 Eos % (Auto) 2.7 % (0.0-4.3) 02/20/18 06:01 Baso % (Auto) 0.3 % (0.0-1.8) 02/20/18 06:01 Lymph # 1.6 K/mm3 (1.2-5.4) 02/20/18 06:01 [place] # 0.8 K/mm3 (0.0-0.8) 02/20/18 06:01 Eos # 0.2 K/mm3 (0.0-0.4) 02/20/18 06:01 Baso # 0.0 K/mm3 (0.0-0.1) 02/20/18 06:01 Seg Neutrophils % 65.2 % (40.0-70.0) 02/20/18 06:01 Seg Neutrophils # 5.1 K/mm3 (1.8-7.7) 02/20/18 06:01 PT 17.1 Sec. (12.2-14.9) H 02/19/18 14:57 INR 1.32 (0.87-1.13) H 02/19/18 14:57 APTT 31.9 Sec. (24.2-36.6) 02/19/18 14:57 Sodium 145 mmol/L (137-145) 02/20/18 06:01 Potassium 4.2 mmol/L (3.6-5.0) 02/20/18 06:01 Chloride 96.6 mmol/L (98-107) L 02/20/18 06:01 Carbon Dioxide 39 mmol/L (22-30) H 02/20/18 06:01 Anion Gap 14 mmol/L 02/20/18 06:01 BUN 15 mg/dL (9-20) 02/20/18 06:01 Creatinine 0.9 mg/dL (0.8-1.5) 02/20/18 06:01 Estimated GFR > 60 ml/min 02/20/18 06:01 BUN/Creatinine Ratio 17 % 02/20/18 06:01 Glucose 93 mg/dL (75-100) 02/20/18 06:01 POC Glucose 97 (70-105) 02/21/18 06:23 Calcium 9.1 mg/dL (8.4-10.2) 02/20/18 06:01 Total Bilirubin 0.30 mg/dL (0.1-1.2) 02/19/18 14:57 AST 44 units/L (5-40) H 02/19/18 14:57 ALT 43 units/L (7-56) 02/19/18 14:57 Alkaline Phosphatase 93 units/L (35-129) 02/19/18 14:57 Total Protein 7.7 g/dL (6.3-8.2) 02/19/18 14:57 Albumin 2.8 g/dL (3.9-5) L 02/19/18 14:57 Albumin/Globulin Ratio 0.6 % 02/19/18 14:57 Lipase 9 units/L (13-60) L 02/19/18 14:57 Hep Bs Antigen Non-reactive (Negative) 02/20/18 19:22 Hep B Core IgM Ab Non-reactive (NonReactive) 02/20/18 19:22 Hepatitis C Antibody Non-reactive (NonReactive) 02/20/18 19:22 HIV 1&2 Antibody Rapid Non react (Non React) 02/20/18 19:22 HIV P24 Antigen Non react (Non React) 02/20/18 19:22 Blood Type O POSITIVE 02/19/18 14:57 Antibody Screen Negative 02/19/18 14:57 Crossmatch See Detail 02/19/18 14:57
[2018-02-21] MEDS ORDERED: VITAMIN K (ADULT ONLY) 10 MG in NACL 0.9% 50 ML IV ONE (11:00)
--- NOTE | 2018-02-21 11:10 | Consultation ---
History of Present Illness - Reason for Consult Consult date: 02/21/18 Lower GI Bleed Requesting physician: JEREMY ACOSTA - History of Present Illness 62 y/o morbidly obese male admitted with acute respiratory failure and lower GI bleed. Suspected Diverticular bleed. Had CTA of the abdomen pelvis that has been reviewed by IR. Patient today is awake and alert. off bipap and tolerating nasal cannula. Not in any respiratory distress. Had a large bloody BM last night. Was given total of 4 units of PRBC's with an inappropriate response. Hemodynamically, patient is tachycardic but BP is stable. Past History Past Medical History: atrial fib, diabetes, hypertension, other (morbid obesity , lymphedema, and chronic respiratory failure) Past Surgical History: No surgical history Social history: single Family history: hypertension Medications and Allergies Allergies Allergy/AdvReac Type Severity Reaction Status Date / Time linezolid Allergy Unknown Verified 02/19/18 14:30 morphine Allergy Unknown Verified 02/19/18 14:30 vancomycin Allergy Unknown Verified 02/19/18 14:30 Home Medications Medication Instructions Recorded Confirmed Last Taken Type ALBUTEROL NEB's [Proventil 0.083% 3 ml INHALATION Q4HR PRN 02/20/18 02/20/18 Unknown History NEBS] Amiodarone [Cordarone 200 MG TAB] 400 mg PO DAILY 02/20/18 02/20/18 Unknown History Apixaban [Eliquis] 2.5 mg PO BID 02/20/18 02/20/18 Unknown History Ascorbic Acid [Vitamin C] 500 mg PO DAILY 02/20/18 02/20/18 Unknown History Aspirin [Aspirin BABY CHEW TAB] 81 mg PO DAILY 02/20/18 02/20/18 Unknown History AtorvaSTATin [Lipitor] 40 mg PO QHS 02/20/18 02/20/18 Unknown History Dextrose [Glucose Gel] 1 applic PO PRN 02/20/18 02/20/18 Unknown History Hydrocolloid Dressing [Duoderm] 1 applicatio TP Q3D 02/20/18 02/20/18 Unknown History Hydrophilic Ointment [Dermafix] 1 applicatio TP BID 02/20/18 02/20/18 Unknown History Ipratropium [place] [Atrovent Hfa] 0.02 ampul IH Q4H PRN 02/20/18 02/20/18 Unknown History Loperamide HCl [Loperamide] 2 mg PO Q6HR PRN 02/20/18 02/20/18 Unknown History Miconazole Nitrate 1 applic TP BID 02/20/18 02/20/18 Unknown History Multivit-Min/Iron/Folic Acid/K 1 tab PO DAILY 02/20/18 02/20/18 Unknown History [Adults Multivitamin Tablet] Pantoprazole [Protonix TAB] 40 mg PO DAILY 02/20/18 02/20/18 Unknown History Sodium Bicarbonate 650 mg PO DAILY 02/20/18 02/20/18 Unknown History oxyCODONE [Roxicodone TAB] 5 mg PO Q6H PRN 02/20/18 02/20/18 Unknown History Active Meds: Active Medications Albuterol (Proventil) 2.5 mg IH Q4HRT PRN PRN Reason: Shortness Of Breath Last Admin: 02/20/18 13:40 Dose: 2.5 mg Albuterol/Ipratropium (Duoneb *Not For Prn Use*) 1 ampul IH TIDRT [facility] Last Admin: 02/21/18 08:17 Dose: 1 ampul Amiodarone HCl (Cordarone) 400 mg PO DAILY [facility] Last Admin: 02/21/18 09:40 Dose: 400 mg Atorvastatin Calcium (Lipitor) 40 mg PO QHS [facility] Last Admin: 02/20/18 22:00 Dose: Not Given Phytonadione 10 mg/ Sodium (Chloride) 51 mls @ 100 mls/hr IV ONCE ONE Stop: 02/21/18 11:30 Ondansetron HCl (Zofran) 4 mg IV Q8H PRN PRN Reason: Nausea And Vomiting Pantoprazole Sodium (Protonix) 40 mg IV BID [facility] Last Admin: 02/21/18 09:40 Dose: 40 mg Sodium Bicarbonate (Sodium Bicarbonate) 650 mg PO DAILY [facility] Last Admin: 02/21/18 09:40 Dose: 650 mg Sodium Chloride (Sodium Chloride Flush Syringe 10 Ml) 10 ml IV BID [facility] Last Admin: 02/21/18 09:40 Dose: 10 ml Sodium Chloride (Sodium Chloride Flush Syringe 10 Ml) 10 ml IV PRN PRN PRN Reason: LINE FLUSH Review of Systems All systems: negative Exam - Constitutional Vitals: Temp Pulse Resp BP Pulse Ox 98.7 F 108 H 28 H 111/46 99 09/14/18 04:00 02/21/18 10:11 02/21/18 10:11 02/21/18 10:11 02/21/18 10:11 General appearance: Present: no acute distress, obese (morbidly) - EENT Eyes: Present: PERRL, EOM intact ENT: hearing intact, clear oral mucosa - Neck Neck: Present: supple, other (large in circumference) - Respiratory Respiratory effort: normal Respiratory: bilateral: diminished - Cardiovascular Rhythm: other (sinus tachycardia) Heart Sounds: Present: S1 & S2 Results - Labs CBC & Chem 7: 02/21/18 06:50 02/20/18 06:01 Labs: Abnormal lab results 02/19/18 02/20/18 02/21/18 Range/Units 14:57 13:21 06:50 RBC 2.91 L (3.65-5.03) M/mm3 Hgb 8.1 L 8.4 L (11.8-15.2) gm/dl Hct 25.1 L 25.7 L (35.5-45.6) % RDW 19.8 H (13.2-15.2) % Crossmatch See Detail Assessment and Plan 62 y/o, morbidly obese male, admitted with acute respiratory failure and lower GI Bleed, source unknown. 1. Ask for an additional type and hold on 4 more units of PRBC's 2. Repeat H/H at 1400 3. If less than 7 will transfuse 2 of the 4 units 4. spoke with GI and will give 10 of vitamin k 5. Reviewed IR note, appreciate their recs 6. Per GI, clear liquid diet for now 7. Will continue ICU care given degree of bleeding. CCt 31min
[2018-02-21 16:30] LABS: Hematocrit 26.9 % (35.5-45.6); Hemoglobin 8.7 gm/dl (11.8-15.2)
[2018-02-21 21:54] LABS: Hematocrit 26.3 % (35.5-45.6); Hemoglobin 8.4 gm/dl (11.8-15.2)
[2018-02-22 00:56] LABS: Hematocrit 25.4 % (35.5-45.6); Hemoglobin 8.1 gm/dl (11.8-15.2)
[2018-02-22 06:09] LABS: Hematocrit 25.6 % (35.5-45.6); Hemoglobin 8.4 gm/dl (11.8-15.2); Mean Corpuscular HGB Conc 33 % (32-34); Mean Corpuscular Hemoglobin 29 pg (28-32); Mean Corpuscular Volume 89 fl (84-94); Platelet Count 297 K/mm3 (140-440); Red Blood Count 2.86 M/mm3 (3.65-5.03); Red Cell Distribution Width 19.6 % (13.2-15.2)
[2018-02-22 06:28] LABS: BUN/Creatinine Ratio 19; Blood Urea Nitrogen 15 mg/dL (9-20); Calcium 8.7 mg/dL (8.4-10.2); Hemolysis Index 3
[2018-02-22] MEDS: DUONEB *Not for PRN Use IH SCH ×3 (07:52→21:57)
[2018-02-22] MEDS: PROTONIX IV SCH (10:04)
[2018-02-22] MEDS: CORDARONE PO SCH (10:05)
[2018-02-22] MEDS: SODIUM CHLORIDE FLUSH SYRINGE 10 ML IV SCH ×2 (10:05→21:48)
[2018-02-22] MEDS: SODIUM BICARBONATE PO SCH (10:05)
--- NOTE | 2018-02-22 10:30 | Gastroenterology Progress Note ---
Assessment and Plan - Patient Problems (1) LGI bleed Current Visit: Yes Status: Acute Plan to address problem: - Resolved after d/c xarelto (will hold one more day). - Colonoscopy (-) at [facility] 1 year ago (per patient). No obvious tics on CT scan. - Morbid obesity and severe pulmonary issues complicate repeat endoscopy; will observe clinically at present. - Continue to hold xarelto and will start MVI. Subjective Date of service: 02/22/18 Principal diagnosis: LGI bleeding Interval history: The patient has stabilized with no blood and no BM overnight. He denies abdominal pain, nausea, or vomiting. He is tolerating his clear liquids. Objective - Constitutional Vitals: Temp Pulse Resp BP Pulse Ox 98.4 F 98 H 20 122/82 98 02/22/18 07:47 02/22/18 07:47 02/22/18 07:47 02/22/18 07:47 02/22/18 07:51 General appearance: no acute distress - EENT ENT: poor dentition - Respiratory Respiratory effort: normal Respiratory: bilateral: CTA - Cardiovascular Rhythm: regular Heart Sounds: Present: S1 & S2 - Gastrointestinal General gastrointestinal: Present: soft, non-tender, non-distended - Labs CBC & Chem 7: 02/22/18 05:48 02/22/18 05:48 Labs: Laboratory Results - last 24 hr 02/21/18 02/21/18 02/21/18 08:03 15:47 21:08 WBC RBC Hgb 8.7 L 8.4 L Hct 26.9 L 26.3 L MCV MCH MCHC RDW Plt Count Sodium Potassium Chloride Carbon Dioxide Anion Gap BUN Creatinine Estimated GFR BUN/Creatinine Ratio Glucose POC Glucose 98 Calcium 02/22/18 02/22/18 02/22/18 00:28 05:48 05:48 WBC 8.6 RBC 2.86 L Hgb 8.1 L 8.4 L Hct 25.4 L 25.6 L MCV 89 MCH 29 MCHC 33 RDW 19.6 H Plt Count 297 Sodium 144 Potassium 3.8 Chloride 99.3 Carbon Dioxide 36 H Anion Gap 13 BUN 15 Creatinine 0.8 Estimated GFR > 60 BUN/Creatinine Ratio 19 Glucose 97 POC Glucose Calcium 8.7
--- NOTE | 2018-02-22 12:39 | Progress Note ---
Assessment and Plan 62 y/o, morbidly obese male, admitted with acute respiratory failure and lower GI Bleed, source unknown. 1. Appears to be stable from GI bleed 2. Reviewed GI note, in regards to pulm status, best guess is that he has obesity hypoventilation syndrome and may have had hypoxemia from profound anemia. We have no PFT's on him but would guess they show restrictive physiology. His risk of pulmonary complication with endoscopy given restrictive lung disease would be low. Biggest risk factor is sedation and possibility of hypercapnea resulting in respiratory failure. With his Bicarb of 36, he is likely a CO2 retainer so lives with high CO2 levels than normal. Would have to ask anesthesia their preference and how they would feel about sedation for scope. 3. Wean FiO2 for sats >88% 4. Per report, patient is from a facility. Subjective Date of service: 02/22/18 Principal diagnosis: LGI bleeding Interval history: Transferred out of unit after stable repeat H/H's. On nasal cannula at 2 liters and sat is 98%. Complaining about lack of food. Objective Vital Signs - 12hr 02/22/18 02/22/18 02/22/18 02:35 07:47 07:51 Temperature 98.8 F 98.4 F Pulse Rate 71 98 H Respiratory 18 20 Rate Blood Pressure 119/90 122/82 O2 Sat by Pulse 93 95 98 Oximetry Constitutional: no acute distress, alert Eyes: non-icteric ENT: oropharynx moist Ascultation: Bilateral: diminished breath sounds (secondary to body habitus) Percussion: Bilateral: not dull Tactile fremitus: Bilateral: normal Cardiovascular: regular rate and rhythm Gastrointestinal: normoactive bowel sounds, other (morbidly obese) Neurologic: normal mental status, non-focal exam CBC and BMP: 02/22/18 05:48 02/22/18 05:48 ABG, PT/INR, D-dimer: PT/INR, D-dimer PT 17.1 Sec. (12.2-14.9) H 02/19/18 14:57 INR 1.32 (0.87-1.13) H 02/19/18 14:57 Abnormal lab findings: Abnormal Labs 02/19/18 02/19/18 02/19/18 14:57 14:57 14:57 RBC 2.64 L Hgb 7.8 L Hct 24.1 L RDW 16.4 H [place] % (Auto) 9.9 H PT 17.1 H INR 1.32 H Chloride 94.4 L Carbon Dioxide 41 H* Glucose 117 H AST 44 H Albumin 2.8 L Lipase 9 L Crossmatch 02/19/18 02/20/18 02/20/18 14:57 06:01 06:01 RBC 2.67 L Hgb 8.3 L Hct 24.3 L RDW 16.7 H [place] % (Auto) 10.8 H PT INR Chloride 96.6 L Carbon Dioxide 39 H Glucose AST Albumin Lipase Crossmatch See Detail 02/20/18 02/21/18 02/21/18 13:21 06:50 15:47 RBC 2.91 L Hgb 8.1 L 8.4 L 8.7 L Hct 25.1 L 25.7 L 26.9 L RDW 19.8 H [place] % (Auto) PT INR Chloride Carbon Dioxide Glucose AST Albumin Lipase Crossmatch 02/21/18 02/22/18 02/22/18 21:08 00:28 05:48 RBC 2.86 L Hgb 8.4 L 8.1 L 8.4 L Hct 26.3 L 25.4 L 25.6 L RDW 19.6 H [place] % (Auto) PT INR Chloride Carbon Dioxide Glucose AST Albumin Lipase Crossmatch 02/22/18 05:48 RBC Hgb Hct RDW [place] % (Auto) PT INR Chloride Carbon Dioxide 36 H Glucose AST Albumin Lipase Crossmatch
[2018-02-22 12:49] LABS: Hemoglobin 8.3 gm/dl (11.8-15.2)
[2018-02-22] MEDS ORDERED: MIRALAX 3350 PO PRN (14:42)
--- NOTE | 2018-02-22 14:43 | Progress Note ---
Assessment and Plan Assessment and plan: Patient is a 62 yo man from [facility] with a history of functional quadriplegia x 2-3 months from [place], Debility, BLE Lymphedema, Chronic hypoxic Respiratory Failure, HTN, DM, Atrial Fib on therapeutic anticoagulation, Obesity Hypoventilation and LEYDI on cpap who presented to ED with BRBPR. He was transfused 2 units of PRBC and hgb only slightly increased. Then he had re- bleeding and sent to ICU and another 2 units of prbc given. * CTA abd/pelvis IMPRESSION: 1. No aortic aneurysm or apparent dissection. 2. Nonspecific bowel gas pattern suggesting colonic ileus, which may be associated with nonspecific postinflammatory change, including diarrhea or enteritis. Distal obstructing lesion not confidently identified, but not completely excluded due to limitations of the examination. Clinical correlation and followup suggested, as warranted. 3. Possible cholelithiasis. 4. Findings which may represent bibasilar atelectasis, mild infiltrates or postinflammatory change and minimal bilateral pleural effusions similar to comparison. Correlate clinically. -Acute GI hemorrhage, suspect due Xarelto, H/H stable today, GI, and IR following, if he re-bleeds again will need NM bleeding scan if table can support his weight. -Acute on chronic blood loss anemia s/p 4 units: monitor h/h closely -Acute on chronic hypoxic respiratory failure: continue O2, consulted Respiratory, ordered nebs, consulted Pulmonology -Severe Obesity, approx. 371 lbs: ? weight limit for CTA vs NM study -Afib/Aflutter, patient on NOVEL anticoagulation, will hold, coags ok -Obesity hypoventilation syndrome/LEYDI: cpap and bipap if needed, consulted Respiratory therapy -Diabetes Mellitus: ssi -HTN (hypertension): monitor bp q shift, continue prehospital medication. -DVT prophylaxis: scd due to gib -Functional quadreplegia: consult OT/PT -Multiple skin wounds, pressure ulcers, leg ulcer: wound care full code I called the [facility] phone number and spoke with sister Adamaris Taylor and gave her an update. Anticipate d/c back SNF in 1-2 days. Hopefully with next bowel movement he doesn't have blood, no BM in 1.5 days, will start Miralax. H/H stable History Interval history: Patient was seen and examined. Follow-up on current diagnosis of rectal bleeding. Overnight uneventful. Patient denies any chest pain, shortness breath , nausea/vomiting or severe headaches. Imaging, nursing note, chart, labs and old chart reviewed. Discussed with patient. Patient currently in ICU room 263. He has no new complaints. He says that he has not had anymore rectal bleeding because he hasn't had a bowel movement. Hospitalist Physical - Physical exam Narrative exam: GEN: severe chronically debilitated appearing, morbid obese bmi 49, approx 371 lbs, NAD, awake alert orientated x 3 HEENT: NCAT, abrasion on forehead, EOMI, PERRL, OP Clear NECK: supple, no adenopathy, no thyromegaly, no JVD CVS/HEART: irregular tachycardia, normal S1S2, pulses present bilaterally CHEST/LUNGS: diminished bs bilateral, Symmetrical chest expansion, good air entry bilaterally GI/Abdomen: soft, NTND, good bowel sounds, no guarding or rebound /Bladder: no suprapubic tenderness, no CVA or paraspinal tenderness EXT/Skin: abrasion on forehead, bilateral knuckles/hands are peeling, legs with severe chronic stasis, lymphedema and wound dsg left leg MSK: lrom legs, left leg with dressing Neuro: CN 2-12 grossly intact, no new focal deficits Psych: calm - Constitutional Vitals: Temp Pulse Resp BP Pulse Ox 98.8 F 113 H 20 104/67 93 02/22/18 14:00 02/22/18 14:00 02/22/18 14:00 02/22/18 14:00 02/22/18 14:00 General appearance: Present: no acute distress, obese (morbidly) Results - Labs CBC & Chem 7: 02/22/18 12:23 02/22/18 05:48 Labs: Laboratory Last Values WBC 8.6 K/mm3 (4.5-11.0) 02/22/18 05:48 RBC 2.86 M/mm3 (3.65-5.03) L 02/22/18 05:48 Hgb 8.3 gm/dl (11.8-15.2) L 02/22/18 12:23 Hct 26.0 % (35.5-45.6) L 02/22/18 12:23 MCV 89 fl (84-94) 02/22/18 05:48 MCH 29 pg (28-32) 02/22/18 05:48 MCHC 33 % (32-34) 02/22/18 05:48 RDW 19.6 % (13.2-15.2) H 02/22/18 05:48 Plt Count 297 K/mm3 (140-440) 02/22/18 05:48 Lymph % (Auto) 21.0 % (13.4-35.0) 02/20/18 06:01 [place] % (Auto) 10.8 % (0.0-7.3) H 02/20/18 06:01 Eos % (Auto) 2.7 % (0.0-4.3) 02/20/18 06:01 Baso % (Auto) 0.3 % (0.0-1.8) 02/20/18 06:01 Lymph # 1.6 K/mm3 (1.2-5.4) 02/20/18 06:01 [place] # 0.8 K/mm3 (0.0-0.8) 02/20/18 06:01 Eos # 0.2 K/mm3 (0.0-0.4) 02/20/18 06:01 Baso # 0.0 K/mm3 (0.0-0.1) 02/20/18 06:01 Seg Neutrophils % 65.2 % (40.0-70.0) 02/20/18 06:01 Seg Neutrophils # 5.1 K/mm3 (1.8-7.7) 02/20/18 06:01 PT 17.1 Sec. (12.2-14.9) H 02/19/18 14:57 INR 1.32 (0.87-1.13) H 02/19/18 14:57 APTT 31.9 Sec. (24.2-36.6) 02/19/18 14:57 Sodium 144 mmol/L (137-145) 02/22/18 05:48 Potassium 3.8 mmol/L (3.6-5.0) 02/22/18 05:48 Chloride 99.3 mmol/L (98-107) 02/22/18 05:48 Carbon Dioxide 36 mmol/L (22-30) H 02/22/18 05:48 Anion Gap 13 mmol/L 02/22/18 05:48 BUN 15 mg/dL (9-20) 02/22/18 05:48 Creatinine 0.8 mg/dL (0.8-1.5) 02/22/18 05:48 Estimated GFR > 60 ml/min 02/22/18 05:48 BUN/Creatinine Ratio 19 % 02/22/18 05:48 Glucose 97 mg/dL (75-100) 02/22/18 05:48 POC Glucose 98 (70-105) 02/21/18 08:03 Calcium 8.7 mg/dL (8.4-10.2) 02/22/18 05:48 Total Bilirubin 0.30 mg/dL (0.1-1.2) 02/19/18 14:57 AST 44 units/L (5-40) H 02/19/18 14:57 ALT 43 units/L (7-56) 02/19/18 14:57 Alkaline Phosphatase 93 units/L (35-129) 02/19/18 14:57 Total Protein 7.7 g/dL (6.3-8.2) 02/19/18 14:57 Albumin 2.8 g/dL (3.9-5) L 02/19/18 14:57 Albumin/Globulin Ratio 0.6 % 02/19/18 14:57 Lipase 9 units/L (13-60) L 02/19/18 14:57 Hep Bs Antigen Non-reactive (Negative) 02/20/18 19:22 Hep B Core IgM Ab Non-reactive (NonReactive) 02/20/18 19:22 Hepatitis C Antibody Non-reactive (NonReactive) 02/20/18 19:22 HIV 1&2 Antibody Rapid Non react (Non React) 02/20/18 19:22 HIV P24 Antigen Non react (Non React) 02/20/18 19:22 Blood Type O POSITIVE 02/19/18 14:57 Antibody Screen Negative 02/19/18 14:57 Crossmatch See Detail 02/19/18 14:57
[2018-02-22] MEDS: PROTONIX PO SCH (21:48)
[2018-02-23] MEDS: DUONEB *Not for PRN Use IH SCH ×2 (07:36→15:25)
[2018-02-23] MEDS: SODIUM BICARBONATE PO SCH (09:26)
[2018-02-23] MEDS: SODIUM CHLORIDE FLUSH SYRINGE 10 ML IV SCH (09:26)
[2018-02-23] MEDS: PROTONIX PO SCH (09:26)
[2018-02-23] MEDS: CORDARONE PO SCH (09:26)
[2018-02-23] MEDS ORDERED: THERAGRAN-M Tab PO SCH (10:00)
--- NOTE | 2018-02-23 11:17 | Progress Note ---
Assessment and Plan 62 y/o, morbidly obese male, admitted with acute respiratory failure and lower GI Bleed, source unknown. No new recs for today. Pulm status is stable. Will sign off. Call if questions 1. Appears to be stable from GI bleed 2. Reviewed GI note, in regards to pulm status, best guess is that he has obesity hypoventilation syndrome and may have had hypoxemia from profound anemia. We have no PFT's on him but would guess they show restrictive physiology. His risk of pulmonary complication with endoscopy given restrictive lung disease would be low. Biggest risk factor is sedation and possibility of hypercapnea resulting in respiratory failure. With his Bicarb of 36, he is likely a CO2 retainer so lives with high CO2 levels than normal. Would have to ask anesthesia their preference and how they would feel about sedation for scope. 3. Wean FiO2 for sats >88% 4. Per report, patient is from a facility. Subjective Date of service: 02/23/18 Principal diagnosis: LGI bleeding Interval history: No acute events. pulm status and GI status appear to be stable Objective Vital Signs - 12hr 02/23/18 02/23/18 02/23/18 00:00 02:13 07:36 Temperature 98.4 F Pulse Rate 80 90 Pulse Rate [ 87 Anterior Bilateral Throughout] Respiratory 16 22 Rate Respiratory 18 Rate [Anterior Bilateral Throughout] Blood Pressure 121/84 Blood Pressure [Right] O2 Sat by Pulse 98 92 98 Oximetry 02/23/18 02/23/18 07:46 10:02 Temperature 98.4 F Pulse Rate 91 H Pulse Rate [ 97 H Anterior Bilateral Throughout] Respiratory 20 Rate Respiratory 18 Rate [Anterior Bilateral Throughout] Blood Pressure Blood Pressure 125/87 [Right] O2 Sat by Pulse 92 Oximetry Constitutional: no acute distress, alert Eyes: non-icteric ENT: oropharynx moist Ascultation: Bilateral: diminished breath sounds (secondary to body habitus) Percussion: Bilateral: not dull Tactile fremitus: Bilateral: normal Cardiovascular: regular rate and rhythm Gastrointestinal: normoactive bowel sounds, other (morbidly obese) Neurologic: normal mental status, non-focal exam CBC and BMP: 02/22/18 12:23 02/22/18 05:48 ABG, PT/INR, D-dimer: PT/INR, D-dimer PT 17.1 Sec. (12.2-14.9) H 02/19/18 14:57 INR 1.32 (0.87-1.13) H 02/19/18 14:57 Abnormal lab findings: Abnormal Labs 02/19/18 02/19/18 02/19/18 14:57 14:57 14:57 RBC 2.64 L Hgb 7.8 L Hct 24.1 L RDW 16.4 H [place] % (Auto) 9.9 H PT 17.1 H INR 1.32 H Chloride 94.4 L Carbon Dioxide 41 H* Glucose 117 H AST 44 H Albumin 2.8 L Lipase 9 L Crossmatch 02/19/18 02/20/18 02/20/18 14:57 06:01 06:01 RBC 2.67 L Hgb 8.3 L Hct 24.3 L RDW 16.7 H [place] % (Auto) 10.8 H PT INR Chloride 96.6 L Carbon Dioxide 39 H Glucose AST Albumin Lipase Crossmatch See Detail 02/20/18 02/21/18 02/21/18 13:21 06:50 15:47 RBC 2.91 L Hgb 8.1 L 8.4 L 8.7 L Hct 25.1 L 25.7 L 26.9 L RDW 19.8 H [place] % (Auto) PT INR Chloride Carbon Dioxide Glucose AST Albumin Lipase Crossmatch 02/21/18 02/22/18 02/22/18 21:08 00:28 05:48 RBC 2.86 L Hgb 8.4 L 8.1 L 8.4 L Hct 26.3 L 25.4 L 25.6 L RDW 19.6 H [place] % (Auto) PT INR Chloride Carbon Dioxide Glucose AST Albumin Lipase Crossmatch 02/22/18 02/22/18 05:48 12:23 RBC Hgb 8.3 L Hct 26.0 L RDW [place] % (Auto) PT INR Chloride Carbon Dioxide 36 H Glucose AST Albumin Lipase Crossmatch
--- NOTE | 2018-02-23 11:37 | Gastroenterology Progress Note ---
Assessment and Plan - Patient Problems (1) LGI bleed Current Visit: Yes Status: Acute Plan to address problem: - Resolved after d/c xarelto (OK to resume tomorrow). - Colonoscopy (-) at [facility] 1 year ago (per patient). No obvious tics on CT scan. - Morbid obesity and severe pulmonary issues complicate repeat endoscopy; will observe clinically at present. - Continue to hold xarelto until tomorrow and will start MVI. OK to transition back to facility. Patient recommended to f/u with GI service at [facility] to see if repeat scoping needed. Subjective Date of service: 02/23/18 Principal diagnosis: LGI bleeding Interval history: The patient had a large BM last night without blood. He denies N/V/abdominal pain. Objective - Constitutional Vitals: Temp Pulse Resp BP Pulse Ox 98.4 F 91 H 20 125/87 92 02/23/18 10:02 02/23/18 10:02 02/23/18 10:02 02/23/18 10:02 02/23/18 10:02 General appearance: no acute distress - Respiratory Respiratory effort: normal Respiratory: bilateral: CTA - Cardiovascular Rhythm: regular Heart Sounds: Present: S1 & S2 - Gastrointestinal General gastrointestinal: Present: soft, non-tender, non-distended - Labs CBC & Chem 7: 02/22/18 12:23 02/22/18 05:48 Labs: Laboratory Results - last 24 hr 02/22/18 12:23 Hgb 8.3 L Hct 26.0 L
--- NOTE | 2018-02-23 13:59 | Progress Note ---
Assessment and Plan Assessment and plan: Patient is a 62 yo man from [facility] with a history of functional quadriplegia x 2-3 months from [place], Debility, BLE Lymphedema, Chronic hypoxic Respiratory Failure, HTN, DM, Atrial Fib on therapeutic anticoagulation, Obesity Hypoventilation and LEYDI on cpap who presented to ED with BRBPR. He was transfused 2 units of PRBC and hgb only slightly increased. Then he had re- bleeding and sent to ICU and another 2 units of prbc given. * CTA abd/pelvis IMPRESSION: 1. No aortic aneurysm or apparent dissection. 2. Nonspecific bowel gas pattern suggesting colonic ileus, which may be associated with nonspecific postinflammatory change, including diarrhea or enteritis. Distal obstructing lesion not confidently identified, but not completely excluded due to limitations of the examination. Clinical correlation and followup suggested, as warranted. 3. Possible cholelithiasis. 4. Findings which may represent bibasilar atelectasis, mild infiltrates or postinflammatory change and minimal bilateral pleural effusions similar to comparison. Correlate clinically. -Acute GI hemorrhage, suspect due Xarelto, H/H stable today, GI, and IR following, if he re-bleeds again will need NM bleeding scan if table can support his weight. -Acute on chronic blood loss anemia s/p 4 units: monitor h/h closely -Acute on chronic hypoxic respiratory failure: continue O2, consulted Respiratory, ordered nebs, consulted Pulmonology -Severe Obesity, approx. 371 lbs: ? weight limit for CTA vs NM study -Afib/Aflutter, patient on NOVEL anticoagulation, will hold, coags ok -Obesity hypoventilation syndrome/LEYDI: cpap and bipap if needed, consulted Respiratory therapy -Diabetes Mellitus: ssi -HTN (hypertension): monitor bp q shift, continue prehospital medication. -DVT prophylaxis: scd due to gib -Functional quadreplegia: consult OT/PT -Multiple skin wounds, pressure ulcers, leg ulcer: wound care full code I called the [facility] phone number and spoke with sister Adamaris Taylor and gave her an update. Anticipate d/c back SNF, had bm last night without blood, d/d Dr. Mckeon, GI History Interval history: Patient was seen and examined. Follow-up on current diagnosis of rectal bleeding. Overnight uneventful. Patient denies any chest pain, shortness breath , nausea/vomiting or severe headaches. Imaging, nursing note, chart, labs and old chart reviewed. Discussed with patient. Patient currently in ICU room 263. He has no new complaints. He says that he has not had anymore rectal bleeding because he hasn't had a bowel movement. Hospitalist Physical - Physical exam Narrative exam: GEN: severe chronically debilitated appearing, morbid obese bmi 49, approx 371 lbs, NAD, awake alert orientated x 3 HEENT: NCAT, abrasion on forehead, EOMI, PERRL, OP Clear NECK: supple, no adenopathy, no thyromegaly, no JVD CVS/HEART: irregular tachycardia, normal S1S2, pulses present bilaterally CHEST/LUNGS: diminished bs bilateral, Symmetrical chest expansion, good air entry bilaterally GI/Abdomen: soft, NTND, good bowel sounds, no guarding or rebound /Bladder: no suprapubic tenderness, no CVA or paraspinal tenderness EXT/Skin: abrasion on forehead, bilateral knuckles/hands are peeling, legs with severe chronic stasis, lymphedema and wound dsg left leg MSK: lrom legs, left leg with dressing Neuro: CN 2-12 grossly intact, no new focal deficits Psych: calm - Constitutional Vitals: Temp Pulse Resp BP Pulse Ox 98.4 F 91 H 20 125/87 92 02/23/18 10:02 02/23/18 10:02 02/23/18 10:02 02/23/18 10:02 02/23/18 10:02 General appearance: Present: no acute distress, obese (morbidly) Results - Labs CBC & Chem 7: 02/22/18 12:23 02/22/18 05:48 Labs: Laboratory Last Values WBC 8.6 K/mm3 (4.5-11.0) 02/22/18 05:48 RBC 2.86 M/mm3 (3.65-5.03) L 02/22/18 05:48 Hgb 8.3 gm/dl (11.8-15.2) L 02/22/18 12:23 Hct 26.0 % (35.5-45.6) L 02/22/18 12:23 MCV 89 fl (84-94) 02/22/18 05:48 MCH 29 pg (28-32) 02/22/18 05:48 MCHC 33 % (32-34) 02/22/18 05:48 RDW 19.6 % (13.2-15.2) H 02/22/18 05:48 Plt Count 297 K/mm3 (140-440) 02/22/18 05:48 Lymph % (Auto) 21.0 % (13.4-35.0) 02/20/18 06:01 [place] % (Auto) 10.8 % (0.0-7.3) H 02/20/18 06:01 Eos % (Auto) 2.7 % (0.0-4.3) 02/20/18 06:01 Baso % (Auto) 0.3 % (0.0-1.8) 02/20/18 06:01 Lymph # 1.6 K/mm3 (1.2-5.4) 02/20/18 06:01 [place] # 0.8 K/mm3 (0.0-0.8) 02/20/18 06:01 Eos # 0.2 K/mm3 (0.0-0.4) 02/20/18 06:01 Baso # 0.0 K/mm3 (0.0-0.1) 02/20/18 06:01 Seg Neutrophils % 65.2 % (40.0-70.0) 02/20/18 06:01 Seg Neutrophils # 5.1 K/mm3 (1.8-7.7) 02/20/18 06:01 PT 17.1 Sec. (12.2-14.9) H 02/19/18 14:57 INR 1.32 (0.87-1.13) H 02/19/18 14:57 APTT 31.9 Sec. (24.2-36.6) 02/19/18 14:57 Sodium 144 mmol/L (137-145) 02/22/18 05:48 Potassium 3.8 mmol/L (3.6-5.0) 02/22/18 05:48 Chloride 99.3 mmol/L (98-107) 02/22/18 05:48 Carbon Dioxide 36 mmol/L (22-30) H 02/22/18 05:48 Anion Gap 13 mmol/L 02/22/18 05:48 BUN 15 mg/dL (9-20) 02/22/18 05:48 Creatinine 0.8 mg/dL (0.8-1.5) 02/22/18 05:48 Estimated GFR > 60 ml/min 02/22/18 05:48 BUN/Creatinine Ratio 19 % 02/22/18 05:48 Glucose 97 mg/dL (75-100) 02/22/18 05:48 POC Glucose 98 (70-105) 02/21/18 08:03 Calcium 8.7 mg/dL (8.4-10.2) 02/22/18 05:48 Total Bilirubin 0.30 mg/dL (0.1-1.2) 02/19/18 14:57 AST 44 units/L (5-40) H 02/19/18 14:57 ALT 43 units/L (7-56) 02/19/18 14:57 Alkaline Phosphatase 93 units/L (35-129) 02/19/18 14:57 Total Protein 7.7 g/dL (6.3-8.2) 02/19/18 14:57 Albumin 2.8 g/dL (3.9-5) L 02/19/18 14:57 Albumin/Globulin Ratio 0.6 % 02/19/18 14:57 Lipase 9 units/L (13-60) L 02/19/18 14:57 Hep Bs Antigen Non-reactive (Negative) 02/20/18 19:22 Hep B Core IgM Ab Non-reactive (NonReactive) 02/20/18 19:22 Hepatitis C Antibody Non-reactive (NonReactive) 02/20/18 19:22 HIV 1&2 Antibody Rapid Non react (Non React) 02/20/18 19:22 HIV P24 Antigen Non react (Non React) 02/20/18 19:22 Blood Type O POSITIVE 02/19/18 14:57 Antibody Screen Negative 02/19/18 14:57 Crossmatch See Detail 02/19/18 14:57
--- NOTE | 2018-02-23 14:03 | Discharge Summary ---
Providers - Providers Date of Admission: 02/19/18 17:01 Date of discharge: 02/23/18 Attending physician: JEREMY ACOSTA 02/19/18 17:18 Consult to Physician [CONS] Routine Comment: Dr. Singer spoke with Dr. Sal @ [id number] Consulting Provider: MINERVA SAL Physician Instructions: Reason For Exam: gi bleed. 02/20/18 06:45 Consult to Wound/ET Nurse [CONS] Routine Reason For Exam: wound eval 02/20/18 12:04 Occupational Therapy Evaluate and Treat [CONS] Routine Comment: Reason For Exam: ADLs evaluation Physical Therapy Evaluation and Treat [CONS] Routine Comment: Reason For Exam: gait evaluation/ambulatory dysfunction Primary care physician: [employer] Hospitalization Condition: Stable Hospital course: Patient is a 62 yo man from [facility] with a history of functional quadriplegia x 2-3 months from [place], Debility, BLE Lymphedema, Chronic hypoxic Respiratory Failure, HTN, DM, Atrial Fib on therapeutic anticoagulation, Obesity Hypoventilation and LEYDI on cpap who presented to ED with BRBPR. He was transfused 2 units of PRBC and hgb only slightly increased. Then he had re- bleeding and sent to ICU and another 2 units of prbc given. * CTA abd/pelvis IMPRESSION: 1. No aortic aneurysm or apparent dissection. 2. Nonspecific bowel gas pattern suggesting colonic ileus, which may be associated with nonspecific postinflammatory change, including diarrhea or enteritis. Distal obstructing lesion not confidently identified, but not completely excluded due to limitations of the examination. Clinical correlation and followup suggested, as warranted. 3. Possible cholelithiasis. 4. Findings which may represent bibasilar atelectasis, mild infiltrates or postinflammatory change and minimal bilateral pleural effusions similar to comparison. Correlate clinically. -Acute GI hemorrhage, suspect due Eliquis H/H stable today, GI, and IR following , if he re-bleeds again will need NM bleeding scan if table can support his weight. -Acute on chronic blood loss anemia s/p 4 units: monitor h/h closely -Acute on chronic hypoxic respiratory failure: continue O2, consulted Respiratory, ordered nebs, consulted Pulmonology -Severe Obesity, approx. 371 lbs: ? weight limit for CTA vs NM study -Afib/Aflutter, patient on NOVEL anticoagulation, will hold, coags ok -Obesity hypoventilation syndrome/LEYDI: cpap and bipap if needed, consulted Respiratory therapy -Diabetes Mellitus: ssi -HTN (hypertension): monitor bp q shift, continue prehospital medication. -DVT prophylaxis: scd due to gib -Functional quadreplegia: consult OT/PT -Multiple skin wounds, pressure ulcers, leg ulcer: wound care full code I called the [facility] phone number and spoke with sister Adamaris Taylor and gave her an update. Anticipate d/c back SNF, had bm last night without blood, d/d Dr. Mckeon, GI Disposition: DC/TX-03 SNF W [facility] CERT Time spent for discharge: 35 min Core Measure Documentation - Palliative Care Palliative Care/ Comfort Measures: Not Applicable - Core Measures Any of the following diagnoses?: none - VTE Discharge Requirements Deep Vein Thrombosis/Pulmonary Embolism Present on Admission: No Has pt received <5 days of overlap therapy or INR<2.0: No Anticoagulant overlap therapy prescribed at discharge: No Contraindication No Overlap Therapy order at DC: Not Indicated Exam - Physical Exam Narrative exam: GEN: severe chronically debilitated appearing, morbid obese bmi 49, approx 371 lbs, NAD, awake alert orientated x 3 HEENT: NCAT, abrasion on forehead, EOMI, PERRL, OP Clear NECK: supple, no adenopathy, no thyromegaly, no JVD CVS/HEART: irregular tachycardia, normal S1S2, pulses present bilaterally CHEST/LUNGS: diminished bs bilateral, Symmetrical chest expansion, good air entry bilaterally GI/Abdomen: soft, NTND, good bowel sounds, no guarding or rebound /Bladder: no suprapubic tenderness, no CVA or paraspinal tenderness EXT/Skin: abrasion on forehead, bilateral knuckles/hands are peeling, legs with severe chronic stasis, lymphedema and wound dsg left leg MSK: lrom legs, left leg with dressing Neuro: CN 2-12 grossly intact, no new focal deficits Psych: calm - Constitutional Vitals: Temp Pulse Resp BP Pulse Ox 98.4 F 91 H 20 125/87 92 02/23/18 10:02 02/23/18 10:02 02/23/18 10:02 02/23/18 10:02/23/18 10:02 Plan Activity: fall precautions, other Diet: diabetic Special Instructions: record daily BP diary, record blood sugar diary (three times a day ) Follow up with: PRIMARY CARE, [Primary Care Provider] - 3-5 Days Forms: Accompanied Note
[2018-02-23] MEDS ORDERED: NORCO 5/325 PO PRN (14:36)
[2018-02-23 14:40] VITALS: BP 132/98
[2018-02-24 09:15] LABS: Hepatitis A Antibody IgM NonReactive (NonReactive)
== END 2018-02-23 17:38 | DRG 377 ==
LOC: ED 14:27 → 3A 17:01 → CC1 02-20 12:52 → 2B-ACE 02-21 20:28
PROVIDERS: ADMIT Internal Medicine; ATTEND Internal Medicine
PROC: 30233N1 Transfusion of Nonautologous Red Blood Cells into Peripheral Vein, Percutaneous Approach (ICD-10-PCS; principal; 2018-02-19)
PROC: 5A09457 Assistance with Respiratory Ventilation, 24-96 Consecutive Hours, Continuous Positive Airway Pressure (ICD-10-PCS; 2018-02-19)
PROC: 5A09357 Assistance with Respiratory Ventilation, Less than 24 Consecutive Hours, Continuous Positive Airway Pressure (ICD-10-PCS; 2018-02-23)
DX: K62.5 Hemorrhage of anus and rectum (principal); J96.21 Acute and chronic respiratory failure with hypoxia; R53.2 Functional quadriplegia; E66.2 Morbid (severe) obesity with alveolar hypoventilation; D62 Acute posthemorrhagic anemia; I48.92 Unspecified atrial flutter; I48.91 Unspecified atrial fibrillation; I10 Essential (primary) hypertension; E11.9 Type 2 diabetes mellitus without complications; S81.809A Unspecified open wound, unspecified lower leg, initial encounter; X58.XXXA Exposure to other specified factors, initial encounter; L89.899 Pressure ulcer of other site, unspecified stage; T45.515A Adverse effect of anticoagulants, initial encounter; Z79.01 Long term (current) use of anticoagulants; Z99.81 Dependence on supplemental oxygen; Y93.89 Activity, other specified; Y92.89 Other specified places as the place of occurrence of the external cause; Y99.8 Other external cause status; Z82.49 Family history of ischemic heart disease and other diseases of the circulatory system; Z88.1 Allergy status to other antibiotic agents; Z88.5 Allergy status to narcotic agent; Z79.899 Other long term (current) drug therapy
CPT/HCPCS: 36415; 74174; 74176; 80048; 80053; 80074; 82962; 83690; 85014; 85018; 85025; 85027; 85610; 85730; 86850; 86900; 86901; 86920; 87116; 87806; 93005; 93010; 94640; 94660; 94760; A9270-GY; C9113; J3430; J7040; P9016; Q9967

== ENCOUNTER 2018-02-27 18:41 | Inpatient (IN) | payer MEDICARE ==
[2018-02-27] MEDS ORDERED: AMIDATE IV ONE (18:55)
[2018-02-27] MEDS ORDERED: QUELICIN IV ONE (18:56)
--- NOTE | 2018-02-27 19:08 | Emergency Department Report ---
ED Shortness of Breath HPI - General Chief Complaint: Dyspnea/Respdistress Stated Complaint: FRANSISCA Time Seen by Provider: 02/27/18 18:41 Source: EMS Mode of arrival: Stretcher Limitations: Altered Mental Status, Physical Limitation - History of Present Illness Initial Comments: Is a 62-year-old male that presents emergency room with complaints of shortness of breath. [facility] and staff at the penitentiary called EMS for hypoxia and shortness of breath and developed difficulty breathing. Patient is minimally responsive. Patient does not answer questions. Patient's eyes are open spontaneously but does not change with any type of stimuli. Patient's and comfortable sounds. Patient is hypoxic at this time. Patient is hypoxic on 10 L. We will move to intubation to protect patient's airway and have adequate oxygenation. She was here 2 weeks ago with a massive GI bleed. Patient was discharged with a normal H&H per family MD Complaint: shortness of breath -: Sudden Severity: severe Consistency: constant Treatments Prior to Arrival: oxygen - Related Data Home Oxygen Therapy: No Home Medications Medication Instructions Recorded Confirmed Last Taken ALBUTEROL NEB's [Proventil 0.083% 3 ml INHALATION Q4HR PRN 02/20/18 02/20/18 Unknown NEBS] Amiodarone [Cordarone 200 MG TAB] 400 mg PO DAILY 02/20/18 02/20/18 Unknown Ascorbic Acid [Vitamin C] 500 mg PO DAILY 02/20/18 02/20/18 Unknown AtorvaSTATin [Lipitor] 40 mg PO QHS 02/20/18 02/20/18 Unknown Dextrose [Glucose Gel] 1 applic PO PRN 02/20/18 02/20/18 Unknown Hydrocolloid Dressing [Duoderm] 1 applicatio TP Q3D 02/20/18 02/20/18 Unknown Hydrophilic Ointment [Dermafix] 1 applicatio TP BID 02/20/18 02/20/18 Unknown Ipratropium [place] [Atrovent Hfa] 0.02 ampul IH Q4H PRN 02/20/18 02/20/18 Unknown Loperamide HCl [Loperamide] 2 mg PO Q6HR PRN 02/20/18 02/20/18 Unknown Miconazole Nitrate 1 applic TP BID 02/20/18 02/20/18 Unknown Multivit-Min/Iron/Folic Acid/K 1 tab PO DAILY 02/20/18 02/20/18 Unknown [Adults Multivitamin Tablet] Pantoprazole [Protonix TAB] 40 mg PO DAILY 02/20/18 02/20/18 Unknown Sodium Bicarbonate 650 mg PO DAILY 02/20/18 02/20/18 Unknown oxyCODONE [Roxicodone TAB] 5 mg PO Q6H PRN 02/20/18 02/20/18 Unknown Allergies Allergy/AdvReac Type Severity Reaction Status Date / Time linezolid Allergy Unknown Verified 02/19/18 14:30 morphine Allergy Unknown Verified 02/19/18 14:30 vancomycin Allergy Unknown Verified 02/19/18 14:30 ED Review of Systems ROS: Stated complaint: FRANSISCA Other details as noted in HPI Comment: Unobtainable due to pts medical conditions ED Past Medical Hx - Past Medical History Previous Medical History?: Yes Hx Hypertension: Yes Hx Diabetes: Yes Hx Renal Disease: Yes (ARF) Additional medical history: encephalopathy. afib. Chronic respiratory Failure - Surgical History Past Surgical History?: Yes - Family History Family history: no significant - Social History Smoking Status: Unknown if ever smoked Substance Use Type: None - Medications Home Medications: Home Medications Medication Instructions Recorded Confirmed Last Taken Type ALBUTEROL NEB's [Proventil 0.083% 3 ml INHALATION Q4HR PRN 02/20/18 02/20/18 Unknown History NEBS] Amiodarone [Cordarone 200 MG TAB] 400 mg PO DAILY 02/20/18 02/20/18 Unknown History Ascorbic Acid [Vitamin C] 500 mg PO DAILY 02/20/18 02/20/18 Unknown History AtorvaSTATin [Lipitor] 40 mg PO QHS 02/20/18 02/20/18 Unknown History Dextrose [Glucose Gel] 1 applic PO PRN 02/20/18 02/20/18 Unknown History Hydrocolloid Dressing [Duoderm] 1 applicatio TP Q3D 02/20/18 02/20/18 Unknown History Hydrophilic Ointment [Dermafix] 1 applicatio TP BID 02/20/18 02/20/18 Unknown History Ipratropium [place] [Atrovent Hfa] 0.02 ampul IH Q4H PRN 02/20/18 02/20/18 Unknown History Loperamide HCl [Loperamide] 2 mg PO Q6HR PRN 02/20/18 02/20/18 Unknown History Miconazole Nitrate 1 applic TP BID 02/20/18 02/20/18 Unknown History Multivit-Min/Iron/Folic Acid/K 1 tab PO DAILY 02/20/18 02/20/18 Unknown History [Adults Multivitamin Tablet] Pantoprazole [Protonix TAB] 40 mg PO DAILY 02/20/18 02/20/18 Unknown History Sodium Bicarbonate 650 mg PO DAILY 02/20/18 02/20/18 Unknown History oxyCODONE [Roxicodone TAB] 5 mg PO Q6H PRN 02/20/18 02/20/18 Unknown History ED Physical Exam - General Limitations: Altered Mental Status, Physical Limitation General appearance: lethargic - Head Head exam: Present: atraumatic, normocephalic - Eye Eye exam: Present: normal appearance, PERRL Pupils: Present: normal accommodation - ENT ENT exam: Present: normal exam - Neck Neck exam: Present: normal inspection - Respiratory Respiratory exam: Present: rhonchi, accessory muscle use, decreased breath sounds - Cardiovascular Cardiovascular Exam: Present: regular rate, normal rhythm, tachycardia - GI/Abdominal GI/Abdominal exam: Present: soft, distended - Rectal Rectal exam: Present: deferred - Extremities Exam Extremities exam: Present: other (open wounds noted on left lower extremity. Bilateral lower extremity edema noted) - Back Exam Back exam: Present: normal inspection - Neurological Exam Neurological exam: Present: altered - Skin Skin exam: Present: warm, dry, normal color ED Course Vital Signs 02/27/18 02/27/18 02/27/18 18:48 18:54 18:55 Temperature 97.4 F L Pulse Rate 123 H 111 H 120 H Respiratory 20 17 Rate Blood Pressure 162/82 O2 Sat by Pulse 93 Oximetry 02/27/18 02/27/18 02/27/18 19:01 19:30 19:31 Temperature Pulse Rate 105 H 101 H 90 Respiratory 38 H 20 Rate Blood Pressure 121/77 88/44 95/47 O2 Sat by Pulse 100 Oximetry 02/27/18 02/27/18 02/27/18 20:01 20:31 20:34 Temperature Pulse Rate 89 82 90 Respiratory 16 20 Rate Blood Pressure 100/41 185/149 185/149 O2 Sat by Pulse 100 Oximetry 02/27/18 02/27/18 02/27/18 20:41 21:01 21:31 Temperature Pulse Rate 99 H 90 98 H Respiratory 18 23 24 Rate Blood Pressure 185/149 165/136 140/108 O2 Sat by Pulse Oximetry 02/27/18 02/27/18 02/27/18 22:01 22:53 22:56 Temperature Pulse Rate 82 102 H Respiratory 23 21 Rate Blood Pressure 139/114 102/67 102/67 O2 Sat by Pulse 99 99 Oximetry 02/27/18 02/27/18 02/28/18 23:00 23:31 00:01 Temperature Pulse Rate 102 H 83 85 Respiratory 24 24 23 Rate Blood Pressure 95/49 93/34 105/81 O2 Sat by Pulse 99 98 Oximetry 02/28/18 00:26 Temperature Pulse Rate Respiratory 18 Rate Blood Pressure O2 Sat by Pulse 100 Oximetry - Reevaluation(s) Reevaluation #1: Evaluated immediately upon arrival by EMS. Patient noted to be decreased responsiveness and tachypneic. Patient also noted to be hypoxic at 92-93% on 10 L of oxygen. We'll move to intubate patient. See procedure note. I also placed an EJ line or IV access in the right neck,see procedure note. 02/27/18 18:35 Initial gas done and CO2 is high with increased rate on that. Recheck abg in 30 minutes. Patient was also hypertensive given 400 mils of IV bolus. Blood pressure is 185/130 at this time. We will stop normal saline and monitor blood pressure. 02/27/18 20:38 Patient reassess. Vital signs are better. Patient will be continue to monitor. CTA and CT head pending 02/27/18 22:15 Reevaluation #2: Discussed plan of care with family. Patient examined again. Vital signs are stable. Patient is on the ventilator. Family agrees with plan of care and voiced understanding of results. 02/27/18 23:50 - Consultations Consultation #1: Cardiology consulted. Cardiology was consulted for elevated troponin and BNP. Dr. Mauricio Hinkle does not recommend heparinizing this patient due to the low nature of the troponin and a recent GI bleed. He recommends monitoring the troponin 02/27/18 22:13 Consultation #2: Hospitalists consulted for admission. Hospitalist to assume care and admit patient. Full report given to Dr. Amaya. Dr. Amaya recommends general surgery be consulted for dilated colon 02/28/18 00:20 Consultation #3: General surgery was consulted for dilated colon. Neurosurgery recommends abdominal CT with IV and oral contrast.Dr cabrera will see pt in am 02/28/18 00:31 - EJ/Peripheral Line Neck R Time Out Performed: Yes Indications: nurses unable to establis Skin Cleansed in Sterile Fashion: Yes Size: 20 Dressing Placed: Tegaderm, tape Patient Tolerated Procedure: well - Intubation Time Out Performed: Yes Sedative: Etomidate Paralytic: Succinylcholine Laryngoscope: fiberoptic video scope Size: 4 Assist Device Used: fiberoptic device ET Tube Size: 7.5 Tube Secured Depth (cm): 24 Tube Secured Location: lips Tube Placement Confirmation: visualized tube passing t, equal breath sounds bilat, no breath sounds over epi, confirmation by capnometr Patient Tolerated Procedure: well Intubation Complications: none ED Medical Decision Making - Lab Data Result diagrams: 02/27/18 20:11 02/27/18 20:11 - EKG Data -: EKG Interpreted by Mt EKG shows normal: axis, intervals, QRS complexes, ST-T waves Rate: normal - EKG Data Interpretation: other (afib. no st elevation. irregular rhyth. ) - Radiology Data Radiology results: report reviewed FINAL REPORT EXAM: XR ABDOMEN 1V AP HISTORY: NG tube placement TECHNIQUE: Limited CT of the upper abdomen for tube placement PRIORS: Correlated with prior CT abdomen pelvis February 20, 2018 FINDINGS: There is an NG tube identified. Distal end overlying body of the stomach Severe colonic distention is noted as described on prior CT. IMPRESSION: NG tube appears in satisfactory position Severe colonic distention Transcribed By: [facility] Dictated By: JULIA MANN MD Electronically Authenticated By: JULIA MANN MD Signed Date/Time: 02/27/182035 FINAL REPORT EXAM: XR CHEST 1V AP HISTORY: Dyspnea TECHNIQUE: Single AP view of the chest PRIORS: Correlated with prior CT February 20, 2018 FINDINGS: There is an ET tube present. Tip is midway between the thoracic inlet and the sean. There is an NG tube distal end overlying the fundus of the stomach. There is some pulmonary vascular and interstitial prominence which may reflect CHF. There is focal atelectasis at the right lung base. Left hemidiaphragm is elevated. Again noted is colonic distention as described on the prior CT IMPRESSION: ET and NG tubes appear in satisfactory position Findings suggestive of CHF atelectasis in the right lower lobe. Elevated left hemidiaphragm Colonic distention Transcribed By: ODALIS Dictated By: JULIA MANN MD Electronically Authenticated By: JULIA MANN MD Signed Date/Time: 02/27/182033 FINAL REPORT EXAM: CT HEAD/BRAIN WO CON HISTORY: sob. hypoxia. ams TECHNIQUE: CT head without contrast PRIORS: None. FINDINGS: No acute intra-axial or extra-axial hemorrhage is identified. There is no evidence of midline shift or mass effect. The ventricles and sulci are within normal limits. Wyman-white matter differentiation is intact. No acute parenchymal abnormalities seen. Bony calvarium is grossly intact. In G tube noted. There is fluid within the left maxillary sinus. IMPRESSION: Fluid level within the left maxillary sinus. NG tube in place No acute intracranial findings Transcribed By: ODALIS Dictated By: JULIA MANN MD Electronically Authenticated By: JULIA MANN MD Signed Date/Time: 02/27/182324 FINAL REPORT EXAM: CT ANGIO CHEST HISTORY: sob. hypoxia. ams TECHNIQUE: CT chest CT angiogram with reconstructions PRIORS: None. FINDINGS: There is ET tube present in satisfactory position. NG tube is identified distal end within the fundus of the stomach. There is no evidence of filling defect within the central pulmonary vasculature to suggest the presence of acute pulmonary embolus. No evidence of mediastinal pathologic lymph node enlargement Heart and great vessels are unremarkable. The aorta is normal in caliber. There is bilateral posterior are confluent opacities with crowding of vessels and structures most consistent with areas of bilateral atelectasis. No pleural effusion identified. There elevation of the left hemidiaphragm There is marked dilatation visualized portion of the colon. This has been noted on prior CT and abdominal films. IMPRESSION: Bilateral areas of atelectasis/infiltrate Colonic dilatation again noted No CT evidence of acute pulmonary embolus Transcribed By: ODALIS Dictated By: JULIA MANN MD Electronically Authenticated By: JULIA MANN MD Signed Date/Time: 02/27/182331 - Medical Decision Making H is a 62-year-old male that presents emergency room with shortness of breath and dyspnea on exertion and hypoxia. Patient was immediately intubated. See procedure notes. Patient will be admitted to the hospitalist service for further evaluation treatment. Patient's head CT is negative. Patient's CTA is negative for PE however does demonstrate colonic dilation most likely a bowel obstruction. Patient's shortness of breath and hypoxia most likely secondary to a CHF exacerbation. Patient is still anemic. Patient had a GI bleed 2 weeks ago was treated here. Patient also has lactic acidosis and a compensated respiratory acidosis and a metabolic alkalosis patient was found to have elevated lactic acid. Patient found to have elevated d-dimer and BNP. Patient chemistries unremarkable. Patient's troponin was mildly elevated and cardiology was consulted. Cardiology recommended only monitoring serial troponins. - Differential Diagnosis sob. hypoxia. chf. aspiration. pe. anemia. Critical Care Time: Yes Critical care attestation.: If time is entered above; I have spent that time in minutes in the direct care of this critically ill patient, excluding procedure time. Critical Care Time: 65 minutes for cc time ED Disposition Clinical Impression: Hypoxia, SOB (shortness of breath), Decreased responsiveness, Lactic acid acidosis, Respiratory acidosis, Metabolic alkalosis, Metabolic alkalosis with respiratory acidosis, Large bowel obstruction Respiratory failure Qualifiers: Chronicity: acute Respiratory failure complication: hypoxia Qualified Code(s): J96.01 - Acute respiratory failure with hypoxia Disposition: 09 OP ADMIT IP TO THIS HOSP Is pt being admited?: Yes Does the pt Need Aspirin: No Condition: Critical Referrals: PRIMARY CARE, [Primary Care Provider] - 3-5 Days Time of Disposition: 00:34
[2018-02-27] MEDS ORDERED: DIPRIVAN 10 MG/ML IV ONE (19:10)
[2018-02-27] MEDS ORDERED: ARTIFICIAL TEARS OPHTH OINT OU PRN (19:11)
[2018-02-27] MEDS ORDERED: VASELINE LIP THERAPY TP PRN (19:11)
[2018-02-27] MEDS ORDERED: DIPRIVAN 10 MG/ML 1,000 MG/100 ML BOTTLE IV ONE (19:14)
[2018-02-27] MEDS: DIPRIVAN 10 MG/ML 1,000 MG/100 ML BOTTLE IV SCH ×2 (19:33→23:02)
[2018-02-27] MEDS ORDERED: NACL 0.9% 500 ML IV SCH (20:00)
[2018-02-27] MEDS ORDERED: NACL 0.9% 1000 ML 1,000 ML ONE (20:10)
[2018-02-27] MEDS ORDERED: NACL 0.9% 1000 ML 1,000 ML IV ONE (20:10)
--- NOTE | 2018-02-27 20:35 | XRay Report ---
FINAL REPORT EXAM: XR CHEST 1V AP HISTORY: Dyspnea TECHNIQUE: Single AP view of the chest PRIORS: Correlated with prior CT February 20, 2018 FINDINGS: There is an ET tube present. Tip is midway between the thoracic inlet and the sean. There is an NG tube distal end overlying the fundus of the stomach. There is some pulmonary vascular and interstitial prominence which may reflect CHF. There is focal atelectasis at the right lung base. Left hemidiaphragm is elevated. Again noted is colonic distention as described on the prior CT IMPRESSION: ET and NG tubes appear in satisfactory position Findings suggestive of CHF atelectasis in the right lower lobe. Elevated left hemidiaphragm Colonic distention
--- NOTE | 2018-02-27 20:38 | XRay Report ---
FINAL REPORT EXAM: XR ABDOMEN 1V AP HISTORY: NG tube placement TECHNIQUE: Limited CT of the upper abdomen for tube placement PRIORS: Correlated with prior CT abdomen pelvis February 20, 2018 FINDINGS: There is an NG tube identified. Distal end overlying body of the stomach Severe colonic distention is noted as described on prior CT. IMPRESSION: NG tube appears in satisfactory position Severe colonic distention
[2018-02-27 20:49] LABS: Creatine Kinase MB 1.4 ng/mL (0.0-4.0)
[2018-02-27 20:52] LABS: Albumin 3.1 g/dL (3.9-5); BUN/Creatinine Ratio 10; Blood Urea Nitrogen 11 mg/dL (9-20); Calcium 9.2 mg/dL (8.4-10.2); Hemolysis Index 102
[2018-02-27 20:54] LABS: Alanine Aminotransferase 21 units/L (7-56)
[2018-02-27 20:58] LABS: Hematocrit 29.1 % (35.5-45.6); Hemoglobin 8.8 gm/dl (11.8-15.2); Mean Corpuscular HGB Conc 30 % (32-34); Mean Corpuscular Hemoglobin 29 pg (28-32); Mean Corpuscular Volume 95 fl (84-94); Platelet Count 433 K/mm3 (140-440); Red Blood Count 3.06 M/mm3 (3.65-5.03)
[2018-02-27 21:00] LABS: Lymphocytes % (Auto) 9.2 % (13.4-35.0)
[2018-02-27 21:01] LABS: Basophils % (Auto) 0.3 % (0.0-1.8); Eosinophils % (Auto) 0.1 % (0.0-4.3); Lymphocytes # (Auto) 0.8 K/mm3 (1.2-5.4); Monocytes % (Auto) 12.3 % (0.0-7.3)
[2018-02-27 21:03] LABS: Chol/HDL Ratio 2.46 %; HDL Cholesterol 52 mg/dL (40-59); LDL Cholesterol,Direct 71 mg/dL (50-130)
--- NOTE | 2018-02-27 23:26 | Cat Scan Report ---
FINAL REPORT EXAM: CT HEAD/BRAIN WO CON HISTORY: sob. hypoxia. ams TECHNIQUE: CT head without contrast PRIORS: None. FINDINGS: No acute intra-axial or extra-axial hemorrhage is identified. There is no evidence of midline shift or mass effect. The ventricles and sulci are within normal limits. Wyman-white matter differentiation is intact. No acute parenchymal abnormalities seen. Bony calvarium is grossly intact. In G tube noted. There is fluid within the left maxillary sinus. IMPRESSION: Fluid level within the left maxillary sinus. NG tube in place No acute intracranial findings
--- NOTE | 2018-02-27 23:33 | Cat Scan Report ---
FINAL REPORT EXAM: CT ANGIO CHEST HISTORY: sob. hypoxia. ams TECHNIQUE: CT chest CT angiogram with reconstructions PRIORS: None. FINDINGS: There is ET tube present in satisfactory position. NG tube is identified distal end within the fundus of the stomach. There is no evidence of filling defect within the central pulmonary vasculature to suggest the presence of acute pulmonary embolus. No evidence of mediastinal pathologic lymph node enlargement Heart and great vessels are unremarkable. The aorta is normal in caliber. There is bilateral posterior are confluent opacities with crowding of vessels and structures most consistent with areas of bilateral atelectasis. No pleural effusion identified. There elevation of the left hemidiaphragm There is marked dilatation visualized portion of the colon. This has been noted on prior CT and abdominal films. IMPRESSION: Bilateral areas of atelectasis/infiltrate Colonic dilatation again noted No CT evidence of acute pulmonary embolus
[2018-02-28 00:41] LABS: Creatine Kinase MB 1.3 ng/mL (0.0-4.0)
[2018-02-28] MEDS ORDERED: TYLENOL PO PRN (01:38)
[2018-02-28] MEDS ORDERED: SODIUM CHLORIDE FLUSH SYRINGE 10 ML IV PRN (01:38)
[2018-02-28] MEDS ORDERED: ZOFRAN IV PRN (01:38)
--- NOTE | 2018-02-28 01:44 | History and Physical Report ---
History of Present Illness Date of examination: 02/28/18 History of present illness: 62-year-old man with history of hypertension, diabetes, A. fib, lymphedema, chronic respiratory failure was sent from long-term for evaluation of decreased responsiveness and shortness of breath. Patient is on ventilator, review of system is unobtainable. He was just discharged from the hospital on the 16th of this month for GI bleed, xarelto was put on hold PAST MEDICAL HISTORY:hypertension, diabetes, A. fib, lymphedema, chronic respiratory failure PAST SURGICAL HISTORY: Unknown SOCIAL HISTORY: Unknown FAMILY HISTORY: Unknown Medications and Allergies Allergies Allergy/AdvReac Type Severity Reaction Status Date / Time linezolid Allergy Unknown Verified 02/19/18 14:30 morphine Allergy Unknown Verified 02/19/18 14:30 vancomycin Allergy Unknown Verified 02/19/18 14:30 Home Medications Medication Instructions Recorded Confirmed Last Taken Type ALBUTEROL NEB's [Proventil 0.083% 3 ml INHALATION Q4HR PRN 02/20/18 02/20/18 Unknown History NEBS] Amiodarone [Cordarone 200 MG TAB] 400 mg PO DAILY 02/20/18 02/20/18 Unknown History Ascorbic Acid [Vitamin C] 500 mg PO DAILY 02/20/18 02/20/18 Unknown History AtorvaSTATin [Lipitor] 40 mg PO QHS 02/20/18 02/20/18 Unknown History Dextrose [Glucose Gel] 1 applic PO PRN 02/20/18 02/20/18 Unknown History Hydrocolloid Dressing [Duoderm] 1 applicatio TP Q3D 02/20/18 02/20/18 Unknown History Hydrophilic Ointment [Dermafix] 1 applicatio TP BID 02/20/18 02/20/18 Unknown History Ipratropium [place] [Atrovent Hfa] 0.02 ampul IH Q4H PRN 02/20/18 02/20/18 Unknown History Loperamide HCl [Loperamide] 2 mg PO Q6HR PRN 02/20/18 02/20/18 Unknown History Miconazole Nitrate 1 applic TP BID 02/20/18 02/20/18 Unknown History Multivit-Min/Iron/Folic Acid/K 1 tab PO DAILY 02/20/18 02/20/18 Unknown History [Adults Multivitamin Tablet] Pantoprazole [Protonix TAB] 40 mg PO DAILY 02/20/18 02/20/18 Unknown History Sodium Bicarbonate 650 mg PO DAILY 02/20/18 02/20/18 Unknown History oxyCODONE [Roxicodone TAB] 5 mg PO Q6H PRN 02/20/18 02/20/18 Unknown History Active Meds: Active Medications Acetaminophen (Tylenol) 650 mg PO Q4H PRN PRN Reason: Pain MILD(1-3)/Fever >100.5/MARES Enoxaparin Sodium (Lovenox) 30 mg SUB-Q QDAY KRYSTYNA Hydrophilic Ointment (Vaseline Lip Therapy) 1 applic TP Q2HR PRN PRN Reason: Dry Lips Propofol (Diprivan 10 Mg/Ml) 1,000 mg in 100 mls @ 5.579 mls/hr IV TITR KRYSTYNA; Protocol Last Titration: 02/27/18 20:10 Dose: 25 mcg/kg/min, 27.896 mls/hr Piperacillin Sod/Tazobactam Sod (Zosyn/Ns 3.375gm/50ml) 3.375 gm in 50 mls @ 100 mls/hr IV Q8HR KRYSTYNA; Protocol Multi-Ingred Cream/Lotion/Oil/Oint (Artificial Tears Ophth Oint) 1 applic OU Q4HR PRN PRN Reason: Dry Eye(s) Ondansetron HCl (Zofran) 4 mg IV Q8H PRN PRN Reason: Nausea And Vomiting Sodium Chloride (Nacl 0.9% 500 Ml) 1 ml IV DIRECT KRYSTYNA Sodium Chloride (Sodium Chloride Flush Syringe 10 Ml) 10 ml IV BID KRYSTYNA Sodium Chloride (Sodium Chloride Flush Syringe 10 Ml) 10 ml IV PRN PRN PRN Reason: LINE FLUSH Exam - Physical Exam Narrative exam: Gen. appearance: Patient lying in bed, no apparent distress, intubated HEENT: Normocephalic, atraumatic, pupils equally round and reactive to light, unable to do extraocular movement , and no sclericterus,. No JVD or thyromegaly or nodule,neck supple, no carotid bruit ,mucous membranes moist, unable to examine oral cavity Heart: S1, S2, regular rate and rhythm Lungs: Clear bilaterally, breathing comfortable Abdomen: Positive bowel sounds, soft, nondistended, no organomegaly Extremity:no edema cyanosis, clubbing Skin: no rash, dry, warm Neuro: Sedated - Constitutional Vitals: Temp Pulse Resp BP Pulse Ox 97.4 F L 85 18 105/81 100 02/27/18 18:48 02/28/18 00:01 02/28/18 00:26 02/28/18 00:01 02/28/18 00:26 Results - Labs CBC & Chem 7: 02/27/18 20:11 02/27/18 20:11 Labs: Abnormal lab results 02/27/18 02/27/18 02/27/18 Range/Units 20:11 20:11 20:11 RBC 3.06 L (3.65-5.03) M/mm3 Hgb 8.8 L (11.8-15.2) gm/dl Hct 29.1 L (35.5-45.6) % MCV 95 H (84-94) fl MCHC 30 L (32-34) % RDW 18.0 H (13.2-15.2) % Lymph % (Auto) 9.2 L (13.4-35.0) % [place] % (Auto) 12.3 H (0.0-7.3) % Lymph # 0.8 L (1.2-5.4) K/mm3 [place] # 1.0 H (0.0-0.8) K/mm3 Seg Neutrophils % 78.1 H (40.0-70.0) % D-Dimer 1135.90 H (0-234) ng/mlDDU POC ABG pCO2 (35-45) POC ABG pO2 (80-105) Chloride 93.7 L (98-107) mmol/L Lactic Acid (0.7-2.0) mmol/L AST 42 H (5-40) units/L Total Creatine Kinase 51 L (55-170) units/L Troponin T 0.046 H (0.00-0.029) ng/mL NT-Pro-B Natriuret Pep (0-900) pg/mL Albumin 3.1 L (3.9-5) g/dL 02/27/18 02/27/18 02/27/18 Range/Units 20:11 20:25 21:28 RBC (3.65-5.03) M/mm3 Hgb (11.8-15.2) gm/dl Hct (35.5-45.6) % MCV (84-94) fl MCHC (32-34) % RDW (13.2-15.2) % Lymph % (Auto) (13.4-35.0) % [place] % (Auto) (0.0-7.3) % Lymph # (1.2-5.4) K/mm3 [place] # (0.0-0.8) K/mm3 Seg Neutrophils % (40.0-70.0) % D-Dimer (0-234) ng/mlDDU POC ABG pCO2 60.6 H (35-45) POC ABG pO2 269 H (80-105) Chloride (98-107) mmol/L Lactic Acid 3.50 H* (0.7-2.0) mmol/L AST (5-40) units/L Total Creatine Kinase (55-170) units/L Troponin T (0.00-0.029) ng/mL NT-Pro-B Natriuret Pep 3021 H (0-900) pg/mL Albumin (3.9-5) g/dL 02/27/18 Range/Units 23:59 RBC (3.65-5.03) M/mm3 Hgb (11.8-15.2) gm/dl Hct (35.5-45.6) % MCV (84-94) fl MCHC (32-34) % RDW (13.2-15.2) % Lymph % (Auto) (13.4-35.0) % [place] % (Auto) (0.0-7.3) % Lymph # (1.2-5.4) K/mm3 [place] # (0.0-0.8) K/mm3 Seg Neutrophils % (40.0-70.0) % D-Dimer (0-234) ng/mlDDU POC ABG pCO2 (35-45) POC ABG pO2 (80-105) Chloride (98-107) mmol/L Lactic Acid (0.7-2.0) mmol/L AST (5-40) units/L Total Creatine Kinase 34 L (55-170) units/L Troponin T 0.042 H (0.00-0.029) ng/mL NT-Pro-B Natriuret Pep (0-900) pg/mL Albumin (3.9-5) g/dL - Imaging and Cardiology EKG: image reviewed Chest x-ray: report reviewed Abdominal x-ray: report reviewed CT scan - chest: report reviewed CT Scan - head: report reviewed Assessment and Plan Assessment Acute on chronic Restoril failure Pneumonia Urinary tract infection Dilatation of the large intestine Abnormal cardiac enzymes Hypertension Diabetes A. fib Lymphedema Lower Extremity and sacral wounds Plan Admit medicine Start IV Zosyn, follow cultures Check cardiac enzymes, echo, continue sedation with propofol drip consult critical care, surgery, wound care Check fingersticks and initiate insulin sliding scale DVT prophylaxis
[2018-02-28] MEDS ORDERED: ZOSYN/NS 3.375GM/50ML 3.375 GM/50 ML BAG IV SCH ×2 (02:00→10:00)
[2018-02-28] MEDS: DIPRIVAN 10 MG/ML 1,000 MG/100 ML BOTTLE IV SCH (02:03)
[2018-02-28 02:16] LABS: Creatine Kinase MB 1.2 ng/mL (0.0-4.0)
[2018-02-28] MEDS ORDERED: D50W (25GM) Syringe IV PRN (02:20)
[2018-02-28 02:37] LABS: Amphetamine Screen,Urine PRESUMPTIVE NEGATIVE; Bacteria,Urine 2+ /HPF (Negative); Benzodiazepines Screen,Urine PRESUMPTIVE NEGATIVE; Bilirubin,Urine NEG (Negative); Blood,Urine NEG (Negative); Cannabinoid Screen,Urine PRESUMPTIVE NEGATIVE; Cocaine Screen,Urine PRESUMPTIVE NEGATIVE; Color,Urine Amber (Yellow); Hyaline Casts,Urine 98 /LPF; Methadone Screen,Urine PRESUMPTIVE NEGATIVE; Mucus,Urine 2+ /HPF; Opiate Screen,Urine PRESUMPTIVE NEGATIVE
[2018-02-28] MEDS ORDERED: NACL 0.9% 1000 ML 1,000 ML IV SCH (05:00)
[2018-02-28 06:00] LABS: Hematocrit 25.2 % (35.5-45.6); Hemoglobin 8.2 gm/dl (11.8-15.2); Mean Corpuscular HGB Conc 33 % (32-34); Mean Corpuscular Hemoglobin 29 pg (28-32); Mean Corpuscular Volume 89 fl (84-94); Platelet Count 380 K/mm3 (140-440); Red Blood Count 2.85 M/mm3 (3.65-5.03); Red Cell Distribution Width 17.8 % (13.2-15.2)
--- NOTE | 2018-02-28 06:03 | Cat Scan Report ---
FINAL REPORT EXAM: CT ABDOMEN PELVIS WO CON HISTORY: dilated colon TECHNIQUE: CT images are acquired through the Abdomen and Pelvis without intravenous contrast and after administration of positive enteric contrast. There is residual contrast in the renal collecting systems from exam on 02/27/2018 and residual positive enteric contrast. Transaxial, coronal and sagittal reformations are provided. PRIORS: 02/27/2018 FINDINGS: Partially visualized intrathoracic contents are remarkable for bibasilar atelectasis. An enteric tube terminates within the gastric cardia. Positive enteric contrast is seen as far distally as the rectum. Portions of the descending and sigmoid colon are decompressed. The transverse colon is dilated up to about 9.5 cm in caliber. No pneumoperitoneum, pericolonic stranding or edema. Normal appendix. No intra-abdominal lymphadenopathy. Normal caliber small bowel. The gallbladder is distended with suggested mild pericholecystic edema. Possible 1 millimeter calcified gallstone near the neck of the gallbladder. The liver, pancreas, spleen, and adrenal glands demonstrate an unremarkable noncontrast appearance. Kidneys show no worrisome lesions, hydronephrosis, or calculi. Urinary bladder is decompressed with a Lin catheter. Aorta is normal in course and caliber. Superficial soft tissues are partially extend off of the field of view and are additionally remarkable for rectus diastasis and a fat containing ventral hernia measuring up to at least 6 cm transversely at the neck. Midline surgical scar. Small bilateral fat containing inguinal hernias versus spermatic cord lipomas. No acute or aggressive appearing skeletal findings. IMPRESSION: Dilated transverse colon measuring up to 9.5 cm in greatest dimension is similar to slightly increased compared to 02/27/2018. Positive enteric contrast extends as far distally as the rectum, and there is no evidence of focal colonic obstruction, pneumoperitoneum or other acute intestinal abnormality. Distended gallbladder with suggested mild pericholecystic edema may be due to cholecystitis in the proper clinical setting. A suggested 1 millimeter calcified gallstone is seen near the neck of the gallbladder. Additional chronic findings as detailed above.
[2018-02-28] MEDS: HumaLOG SUB-Q SCH ×2 (06:26→12:30)
[2018-02-28 07:15] LABS: Anisocytosis 1+; Band Neutrophils # (Manual) 1.1 K/mm3; Basophils % (Manual) 0 % (0.0-1.8); Eosinophils % (Manual) 0 % (0.0-4.3); Spherocytes Few; Total Cells Counted 100
[2018-02-28 07:16] LABS: Hypochromasia 1+; Ovalocytes Few
[2018-02-28 07:47] LABS: BUN/Creatinine Ratio 12; Blood Urea Nitrogen 12 mg/dL (9-20); Calcium 9.1 mg/dL (8.4-10.2); Hemolysis Index 9
[2018-02-28 07:49] LABS: Creatine Kinase MB 1.1 ng/mL (0.0-4.0)
--- NOTE | 2018-02-28 08:28 | XRay Report ---
AP CHEST: HISTORY: Followup respiratory failure The endotracheal tube and nasogastric tube remain in adequate position. There is increased pulmonary venous congestion since yesterday's exam. Cardiomegaly is stable. The left hemidiaphragm is mildly elevated or eventrated. No obvious pneumonia, large pleural effusion or pneumothorax. IMPRESSION: Increased pulmonary venous congestion since yesterday's exam.
--- NOTE | 2018-02-28 08:38 | Consultation ---
History of Present Illness Consult date: 02/28/18 Requesting physician: CHOCO ZHANG Reason for consult: other (Acute Hypoxemic Resp Failure; Acute Encephalopathy; Dilated Bowel; NSTEMI) History of present illness: PULMONARY/CCM CONSULT NOTE (Full dictation # [id number]) Please see dictated notes for full details Medications and Allergies Allergies Allergy/AdvReac Type Severity Reaction Status Date / Time linezolid Allergy Unknown Verified 02/19/18 14:30 morphine Allergy Unknown Verified 02/19/18 14:30 vancomycin Allergy Unknown Verified 02/19/18 14:30 Home Medications Medication Instructions Recorded Confirmed Last Taken Type ALBUTEROL NEB's [Proventil 0.083% 3 ml INHALATION Q4HR PRN 02/20/18 02/20/18 Unknown History NEBS] Amiodarone [Cordarone 200 MG TAB] 400 mg PO DAILY 02/20/18 02/20/18 Unknown History Ascorbic Acid [Vitamin C] 500 mg PO DAILY 02/20/18 02/20/18 Unknown History AtorvaSTATin [Lipitor] 40 mg PO QHS 02/20/18 02/20/18 Unknown History Dextrose [Glucose Gel] 1 applic PO PRN 02/20/18 02/20/18 Unknown History Hydrocolloid Dressing [Duoderm] 1 applicatio TP Q3D 02/20/18 02/20/18 Unknown History Hydrophilic Ointment [Dermafix] 1 applicatio TP BID 02/20/18 02/20/18 Unknown History Ipratropium [place] [Atrovent Hfa] 0.02 ampul IH Q4H PRN 02/20/18 02/20/18 Unknown History Loperamide HCl [Loperamide] 2 mg PO Q6HR PRN 02/20/18 02/20/18 Unknown History Miconazole Nitrate 1 applic TP BID 02/20/18 02/20/18 Unknown History Multivit-Min/Iron/Folic Acid/K 1 tab PO DAILY 02/20/18 02/20/18 Unknown History [Adults Multivitamin Tablet] Pantoprazole [Protonix TAB] 40 mg PO DAILY 02/20/18 02/20/18 Unknown History Sodium Bicarbonate 650 mg PO DAILY 02/20/18 02/20/18 Unknown History oxyCODONE [Roxicodone TAB] 5 mg PO Q6H PRN 02/20/18 02/20/18 Unknown History Active Meds: Active Medications Acetaminophen (Tylenol) 650 mg PO Q4H PRN PRN Reason: Pain MILD(1-3)/Fever >100.5/MARES Dextrose (D50w (25gm) Syringe) 50 ml IV PRN PRN PRN Reason: Hypoglycemia Hydrophilic Ointment (Vaseline Lip Therapy) 1 applic TP Q2HR PRN PRN Reason: Dry Lips Propofol (Diprivan 10 Mg/Ml) 1,000 mg in 100 mls @ 5.579 mls/hr IV TITR KRYSTYNA; Protocol Last Titration: 02/28/18 05:20 Dose: 0 mcg/kg/min, 0 mls/hr Sodium Chloride (Nacl 0.9% 1000 Ml) 1,000 mls @ 100 mls/hr IV DIRECT KRYSTYNA Last Admin: 02/28/18 04:30 Dose: 100 mls/hr Piperacillin Sod/Tazobactam Sod (Zosyn/Ns 3.375gm/50ml) 3.375 gm in 50 mls @ 100 mls/hr IV Q6HR KRYSTYNA; Protocol Metronidazole (Flagyl 500 Mg/100 Ml) 500 mg in 100 mls @ 100 mls/hr IV Q8HR KRYSTYNA ; Protocol Potassium Chloride 80 meq/ (Sodium Chloride) 1,040 mls @ 125 mls/hr IV BOLUS ONE Stop: 02/28/18 16:40 Insulin Human Lispro (Humalog) 0 unit SUB-Q Q6HR KRYSTYNA; Protocol Last Admin: 02/28/18 06:26 Dose: Not Given Multi-Ingred Cream/Lotion/Oil/Oint (Artificial Tears Ophth Oint) 1 applic OU Q4HR PRN PRN Reason: Dry Eye(s) Ondansetron HCl (Zofran) 4 mg IV Q8H PRN PRN Reason: Nausea And Vomiting Sodium Chloride (Nacl 0.9% 500 Ml) 1 ml IV DIRECT KRYSTYNA Sodium Chloride (Sodium Chloride Flush Syringe 10 Ml) 10 ml IV BID KRYSTYNA Sodium Chloride (Sodium Chloride Flush Syringe 10 Ml) 10 ml IV PRN PRN PRN Reason: LINE FLUSH Vancomycin HCl (Vancomycin Po) 250 mg FEEDTUBE Q6HR KRYSTYNA Physical Examination Vital signs: Vital Signs Temp Pulse Resp BP Pulse Ox 97.4 F L 123 H 20 162/82 93 02/27/18 18:48 02/27/18 18:48 02/27/18 18:48 02/27/18 18:48 02/27/18 18:48 Results - Laboratory Findings CBC and BMP: 02/28/18 05:50 02/28/18 07:22 ABG POC ABG pH 7.430 (7.35-7.45) 02/27/18 20:25 POC ABG pCO2 60.6 (35-45) H 02/27/18 20:25 POC ABG pO2 269 (80-105) H 02/27/18 20:25 POC ABG HCO3 40.2 02/27/18 20:25 POC ABG Total CO2 42 02/27/18 20:25 POC ABG O2 Sat 100 02/27/18 20:25 PT/INR, D-dimer D-Dimer 1135.90 ng/mlDDU (0-234) H 02/27/18 20:11 Abnormal lab findings: Abnormal Labs 02/27/18 02/27/18 02/27/18 20:11 20:11 20:11 RBC 3.06 L Hgb 8.8 L Hct 29.1 L MCV 95 H MCHC 30 L RDW 18.0 H Lymph % (Auto) 9.2 L [place] % (Auto) 12.3 H Lymph # 0.8 L [place] # 1.0 H Seg Neutrophils % 78.1 H Seg Neuts % (Manual) Lymphocytes % (Manual) Lymphocytes # (Manual) D-Dimer 1135.90 H POC ABG pCO2 POC ABG pO2 Potassium Chloride 93.7 L Carbon Dioxide Glucose Lactic Acid AST 42 H Total Creatine Kinase 51 L Troponin T 0.046 H NT-Pro-B Natriuret Pep Albumin 3.1 L Urine WBC (Auto) 02/27/18 02/27/18 02/27/18 20:11 20:25 21:28 RBC Hgb Hct MCV MCHC RDW Lymph % (Auto) [place] % (Auto) Lymph # [place] # Seg Neutrophils % Seg Neuts % (Manual) Lymphocytes % (Manual) Lymphocytes # (Manual) D-Dimer POC ABG pCO2 60.6 H POC ABG pO2 269 H Potassium Chloride Carbon Dioxide Glucose Lactic Acid 3.50 H* AST Total Creatine Kinase Troponin T NT-Pro-B Natriuret Pep 3021 H Albumin Urine WBC (Auto) 02/27/18 02/28/18 02/28/18 23:59 01:46 02:03 RBC Hgb Hct MCV MCHC RDW Lymph % (Auto) [place] % (Auto) Lymph # [place] # Seg Neutrophils % Seg Neuts % (Manual) Lymphocytes % (Manual) Lymphocytes # (Manual) D-Dimer POC ABG pCO2 POC ABG pO2 Potassium Chloride Carbon Dioxide Glucose Lactic Acid AST Total Creatine Kinase 34 L 41 L Troponin T 0.042 H 0.046 H NT-Pro-B Natriuret Pep Albumin Urine WBC (Auto) 80.0 H 02/28/18 02/28/18 02/28/18 05:50 07:22 07:27 RBC 2.85 L Hgb 8.2 L Hct 25.2 L MCV MCHC RDW 17.8 H Lymph % (Auto) [place] % (Auto) Lymph # [place] # Seg Neutrophils % Seg Neuts % (Manual) 77.0 H Lymphocytes % (Manual) 6.0 L Lymphocytes # (Manual) 0.4 L D-Dimer POC ABG pCO2 POC ABG pO2 Potassium 2.6 L* D Chloride 97.3 L Carbon Dioxide 32 H Glucose 111 H Lactic Acid AST Total Creatine Kinase 47 L Troponin T 0.063 H D NT-Pro-B Natriuret Pep Albumin Urine WBC (Auto)
[2018-02-28] MEDS ORDERED: LOVENOX SUB-Q SCH (10:00)
--- NOTE | 2018-02-28 10:57 | Consultation ---
History of Present Illness - Reason for Consult Consult date: 02/28/18 sepsis Requesting physician: PAUL OLSEN - History of Present Illness 62 y/o male with history of hypertension, diabetes, A. fib, lymphedema, chronic respiratory failure; admitted on 02/27/2018 due to altered mental status and progressive shortness of breath. Of note, he was just discharged from the hospital on 02/23/18 for GI bleed. History is unable to be obtained due to altered mental status and patient is intubated. In the ED, initial temperature was 97.4, heart rate 123, respiration 20, O2 sat 93, blood pressure 162/82 --> 88/44. Initial white count 8.3. Hemoglobin 8.8. Platelets 433. Bands 16%. Lactic acid 3.5. Creatinine 1.1. AST 42. CRP 5.3. Chest x-ray show bilateral CHF changes and atelectasis to the right lower lobe. CTA of the chest show bilateral atelectasis versus infiltrates. CT abdomen showed distended transverse colon and the gallbladder and mild pericholecystic fluid. Per ED nursing staff verbally to ICU nurses patient had multiple episodes of diarrhea however there is no documentation on the chart. Microbiology: Blood cultures: 02/27 ngtd Respiratory cultures: 02/27 TA ngtd Wound cultures: Current Antimicrobials: Zosyn PO vanco flagyl Previous Antimicrobials: Past History Past Medical History: other (as per HPI) Social history: no significant social history Medications and Allergies Allergies Allergy/AdvReac Type Severity Reaction Status Date / Time linezolid Allergy Unknown Verified 02/19/18 14:30 morphine Allergy Unknown Verified 02/19/18 14:30 vancomycin Allergy Unknown Verified 02/19/18 14:30 Home Medications Medication Instructions Recorded Confirmed Last Taken Type ALBUTEROL NEB's [Proventil 0.083% 3 ml INHALATION Q4HR PRN 02/20/18 02/20/18 Unknown History NEBS] Amiodarone [Cordarone 200 MG TAB] 400 mg PO DAILY 02/20/18 02/20/18 Unknown History Ascorbic Acid [Vitamin C] 500 mg PO DAILY 02/20/18 02/20/18 Unknown History AtorvaSTATin [Lipitor] 40 mg PO QHS 02/20/18 02/20/18 Unknown History Dextrose [Glucose Gel] 1 applic PO PRN 02/20/18 02/20/18 Unknown History Hydrocolloid Dressing [Duoderm] 1 applicatio TP Q3D 02/20/18 02/20/18 Unknown History Hydrophilic Ointment [Dermafix] 1 applicatio TP BID 02/20/18 02/20/18 Unknown History Ipratropium [place] [Atrovent Hfa] 0.02 ampul IH Q4H PRN 02/20/18 02/20/18 Unknown History Loperamide HCl [Loperamide] 2 mg PO Q6HR PRN 02/20/18 02/20/18 Unknown History Miconazole Nitrate 1 applic TP BID 02/20/18 02/20/18 Unknown History Multivit-Min/Iron/Folic Acid/K 1 tab PO DAILY 02/20/18 02/20/18 Unknown History [Adults Multivitamin Tablet] Pantoprazole [Protonix TAB] 40 mg PO DAILY 02/20/18 02/20/18 Unknown History Sodium Bicarbonate 650 mg PO DAILY 02/20/18 02/20/18 Unknown History oxyCODONE [Roxicodone TAB] 5 mg PO Q6H PRN 02/20/18 02/20/18 Unknown History Active Meds: Active Medications Acetaminophen (Tylenol) 650 mg PO Q4H PRN PRN Reason: Pain MILD(1-3)/Fever >100.5/MARES Dextrose (D50w (25gm) Syringe) 50 ml IV PRN PRN PRN Reason: Hypoglycemia Enoxaparin Sodium (Lovenox) 40 mg SUB-Q QDAY@2200 KRYSTYNA Furosemide (Lasix) 20 mg IV Q12H KRYSTYNA Stop: 03/01/18 23:01 Hydrophilic Ointment (Vaseline Lip Therapy) 1 applic TP Q2HR PRN PRN Reason: Dry Lips Propofol (Diprivan 10 Mg/Ml) 1,000 mg in 100 mls @ 5.579 mls/hr IV TITR KRYSTYNA; Protocol Last Titration: 02/28/18 05:20 Dose: 0 mcg/kg/min, 0 mls/hr Sodium Chloride (Nacl 0.9% 1000 Ml) 1,000 mls @ 100 mls/hr IV DIRECT KRYSTYNA Last Admin: 02/28/18 04:30 Dose: 100 mls/hr Piperacillin Sod/Tazobactam Sod (Zosyn/Ns 3.375gm/50ml) 3.375 gm in 50 mls @ 100 mls/hr IV Q6HR KRYSTYNA; Protocol Metronidazole (Flagyl 500 Mg/100 Ml) 500 mg in 100 mls @ 100 mls/hr IV Q8HR KRYSTYNA ; Protocol Potassium Chloride 80 meq/ (Sodium Chloride) 1,040 mls @ 125 mls/hr IV BOLUS ONE Stop: 02/28/18 19:19 Insulin Human Lispro (Humalog) 0 unit SUB-Q Q6HR KRYSTYNA; Protocol Last Admin: 02/28/18 06:26 Dose: Not Given Multi-Ingred Cream/Lotion/Oil/Oint (Artificial Tears Ophth Oint) 1 applic OU Q4HR PRN PRN Reason: Dry Eye(s) Ondansetron HCl (Zofran) 4 mg IV Q8H PRN PRN Reason: Nausea And Vomiting Sodium Chloride (Nacl 0.9% 500 Ml) 1 ml IV DIRECT KRYSTYNA Sodium Chloride (Sodium Chloride Flush Syringe 10 Ml) 10 ml IV BID KRYSTYNA Sodium Chloride (Sodium Chloride Flush Syringe 10 Ml) 10 ml IV PRN PRN PRN Reason: LINE FLUSH Vancomycin HCl (Vancomycin Po) 250 mg FEEDTUBE Q6HR KRYSTYNA Physical Examination - Physical Exam Narrative exam: General appearance: sedated on the vent on CPAP Eyes: anicteric sclerae, moist conjunctivae; no lid-lag; PERRLA HENT: Atraumatic; oropharynx +ETT +NGT Neck: Trachea midline; supple, no thyromegaly or lymphadenopathy Lungs: coarse BS ko CV: RRR, no murmurs Abdomen: Soft, non-tender; no masses or hepatosplenomegaly Extremities:+ left leg lymphedema with large crust limited exam Skin: +forehead scar Psych: sedated Neuro: sedated Lines: No CVL / PICC - Constitutional Vitals: Vital Signs Temp Pulse Resp BP Pulse Ox 97.4 F L 97 H 18 142/69 96 02/27/18 18:48 02/28/18 09:18 02/28/18 08:00 02/28/18 08:00 02/28/18 09:18 Temperature -Last 24 Hours Temperature 97.4 F Results - Labs CBC & Chem 7: 02/28/18 05:50 02/28/18 09:29 Labs: Abnormal lab results 02/27/18 02/27/18 02/27/18 Range/Units 20:11 20:11 20:11 RBC 3.06 L (3.65-5.03) M/mm3 Hgb 8.8 L (11.8-15.2) gm/dl Hct 29.1 L (35.5-45.6) % MCV 95 H (84-94) fl MCHC 30 L (32-34) % RDW 18.0 H (13.2-15.2) % Lymph % (Auto) 9.2 L (13.4-35.0) % [place] % (Auto) 12.3 H (0.0-7.3) % Lymph # 0.8 L (1.2-5.4) K/mm3 [place] # 1.0 H (0.0-0.8) K/mm3 Seg Neutrophils % 78.1 H (40.0-70.0) % Seg Neuts % (Manual) (40.0-70.0) % Lymphocytes % (Manual) (13.4-35.0) % Lymphocytes # (Manual) (1.2-5.4) K/mm3 D-Dimer 1135.90 H (0-234) ng/mlDDU POC ABG pCO2 (35-45) POC ABG pO2 (80-105) Potassium (3.6-5.0) mmol/L Chloride 93.7 L (98-107) mmol/L Carbon Dioxide (22-30) mmol/L Glucose (75-100) mg/dL Lactic Acid (0.7-2.0) mmol/L Magnesium (1.7-2.3) mg/dL AST 42 H (5-40) units/L Total Creatine Kinase 51 L (55-170) units/L Troponin T 0.046 H (0.00-0.029) ng/mL C-Reactive Protein (0.00-1.30) mg/dL NT-Pro-B Natriuret Pep (0-900) pg/mL Albumin 3.1 L (3.9-5) g/dL Urine WBC (Auto) (0.0-6.0) /HPF 02/27/18 02/27/18 02/27/18 Range/Units 20:11 20:25 21:28 RBC (3.65-5.03) M/mm3 Hgb (11.8-15.2) gm/dl Hct (35.5-45.6) % MCV (84-94) fl MCHC (32-34) % RDW (13.2-15.2) % Lymph % (Auto) (13.4-35.0) % [place] % (Auto) (0.0-7.3) % Lymph # (1.2-5.4) K/mm3 [place] # (0.0-0.8) K/mm3 Seg Neutrophils % (40.0-70.0) % Seg Neuts % (Manual) (40.0-70.0) % Lymphocytes % (Manual) (13.4-35.0) % Lymphocytes # (Manual) (1.2-5.4) K/mm3 D-Dimer (0-234) ng/mlDDU POC ABG pCO2 60.6 H (35-45) POC ABG pO2 269 H (80-105) Potassium (3.6-5.0) mmol/L Chloride (98-107) mmol/L Carbon Dioxide (22-30) mmol/L Glucose (75-100) mg/dL Lactic Acid 3.50 H* (0.7-2.0) mmol/L Magnesium (1.7-2.3) mg/dL AST (5-40) units/L Total Creatine Kinase (55-170) units/L Troponin T (0.00-0.029) ng/mL C-Reactive Protein (0.00-1.30) mg/dL NT-Pro-B Natriuret Pep 3021 H (0-900) pg/mL Albumin (3.9-5) g/dL Urine WBC (Auto) (0.0-6.0) /HPF 02/27/18 02/28/18 02/28/18 Range/Units 23:59 01:46 02:03 RBC (3.65-5.03) M/mm3 Hgb (11.8-15.2) gm/dl Hct (35.5-45.6) % MCV (84-94) fl MCHC (32-34) % RDW (13.2-15.2) % Lymph % (Auto) (13.4-35.0) % [place] % (Auto) (0.0-7.3) % Lymph # (1.2-5.4) K/mm3 [place] # (0.0-0.8) K/mm3 Seg Neutrophils % (40.0-70.0) % Seg Neuts % (Manual) (40.0-70.0) % Lymphocytes % (Manual) (13.4-35.0) % Lymphocytes # (Manual) (1.2-5.4) K/mm3 D-Dimer (0-234) ng/mlDDU POC ABG pCO2 (35-45) POC ABG pO2 (80-105) Potassium (3.6-5.0) mmol/L Chloride (98-107) mmol/L Carbon Dioxide (22-30) mmol/L Glucose (75-100) mg/dL Lactic Acid (0.7-2.0) mmol/L Magnesium (1.7-2.3) mg/dL AST (5-40) units/L Total Creatine Kinase 34 L 41 L (55-170) units/L Troponin T 0.042 H 0.046 H (0.00-0.029) ng/mL C-Reactive Protein (0.00-1.30) mg/dL NT-Pro-B Natriuret Pep (0-900) pg/mL Albumin (3.9-5) g/dL Urine WBC (Auto) 80.0 H (0.0-6.0) /HPF 02/28/18 02/28/18 02/28/18 Range/Units 05:50 07:22 07:27 RBC 2.85 L (3.65-5.03) M/mm3 Hgb 8.2 L (11.8-15.2) gm/dl Hct 25.2 L (35.5-45.6) % MCV (84-94) fl MCHC (32-34) % RDW 17.8 H (13.2-15.2) % Lymph % (Auto) (13.4-35.0) % [place] % (Auto) (0.0-7.3) % Lymph # (1.2-5.4) K/mm3 [place] # (0.0-0.8) K/mm3 Seg Neutrophils % (40.0-70.0) % Seg Neuts % (Manual) 77.0 H (40.0-70.0) % Lymphocytes % (Manual) 6.0 L (13.4-35.0) % Lymphocytes # (Manual) 0.4 L (1.2-5.4) K/mm3 D-Dimer (0-234) ng/mlDDU POC ABG pCO2 (35-45) POC ABG pO2 (80-105) Potassium 2.6 L* D (3.6-5.0) mmol/L Chloride 97.3 L (98-107) mmol/L Carbon Dioxide 32 H (22-30) mmol/L Glucose 111 H (75-100) mg/dL Lactic Acid (0.7-2.0) mmol/L Magnesium (1.7-2.3) mg/dL AST (5-40) units/L Total Creatine Kinase 47 L (55-170) units/L Troponin T 0.063 H D (0.00-0.029) ng/mL C-Reactive Protein (0.00-1.30) mg/dL NT-Pro-B Natriuret Pep (0-900) pg/mL Albumin (3.9-5) g/dL Urine WBC (Auto) (0.0-6.0) /HPF 02/28/18 02/28/18 Range/Units 09:29 09:29 RBC (3.65-5.03) M/mm3 Hgb (11.8-15.2) gm/dl Hct (35.5-45.6) % MCV (84-94) fl MCHC (32-34) % RDW (13.2-15.2) % Lymph % (Auto) (13.4-35.0) % [place] % (Auto) (0.0-7.3) % Lymph # (1.2-5.4) K/mm3 [place] # (0.0-0.8) K/mm3 Seg Neutrophils % (40.0-70.0) % Seg Neuts % (Manual) (40.0-70.0) % Lymphocytes % (Manual) (13.4-35.0) % Lymphocytes # (Manual) (1.2-5.4) K/mm3 D-Dimer (0-234) ng/mlDDU POC ABG pCO2 (35-45) POC ABG pO2 (80-105) Potassium 3.2 L D (3.6-5.0) mmol/L Chloride (98-107) mmol/L Carbon Dioxide (22-30) mmol/L Glucose (75-100) mg/dL Lactic Acid (0.7-2.0) mmol/L Magnesium 1.60 L (1.7-2.3) mg/dL AST (5-40) units/L Total Creatine Kinase (55-170) units/L Troponin T (0.00-0.029) ng/mL C-Reactive Protein 5.30 H (0.00-1.30) mg/dL NT-Pro-B Natriuret Pep (0-900) pg/mL Albumin (3.9-5) g/dL Urine WBC (Auto) (0.0-6.0) /HPF Assessment and Plan Assessment: 1) Sepsis: Present on admission, manifested by tachycardia, hypotension, bandemia, increased lactate. Etiology unclear ? pneumonia ? colitis ? cholecystitis ? left leg infection -Lactic acid 3.5. -CRP 5.3. 2) Presumed pneumonia: ? CAP ? aspiration ? HAP -Chest x-ray show bilateral CHF changes and atelectasis to the right lower lobe. -CTA of the chest show bilateral atelectasis versus infiltrates. 3) Diarrhea: reported by ED staff but none since admission to ICU -CT abdomen showed distended transverse colo 4) Distended GB ? acute cholecystitis -CT abdomen showed gallbladder and mild pericholecystic fluid. 5) History of hypertension 6) Diabetes 7) A. fib 8) Left leg Lymphedema 9) Chronic respiratory failure 10) Acute encephalopathy 11) Recent GI bleed 12) Linezolid and vanco allergies Plan: -HIDA -follow-up blood cultures -obtain respiratory cultures, procalcitonin, C-reactive protein (CRP) -Wound care consult - left leg -continue flagyl -stop PO vanco and zosyn -start cefepime and IV dapto to cover empirically -if diarrhea get Cdiff before day 4 -contact isolation for now I am rounding on 03/03 Thank you for your consultation, will follow up with you. Stacey Pizarro MD Infectious Diseases Specialist [facility] ([facility] M [phone] O [phone]
[2018-02-28] MEDS ORDERED: NACL 0.9% 1000 ML 1,000 ML with KCL 80 MEQ IV ONE (11:00)
[2018-02-28] MEDS ORDERED: ARTIFICIAL TEARS OPHTH OINT OU PRN (11:11)
[2018-02-28] MEDS ORDERED: VASELINE LIP THERAPY TP PRN (11:11)
[2018-02-28] MEDS: FLAGYL 500 MG/100 ML 500 MG/100 ML BAG IV SCH ×2 (11:15→15:52)
[2018-02-28] MEDS: LASIX IV SCH ×2 (11:16→23:00)
[2018-02-28] MEDS: SODIUM CHLORIDE FLUSH SYRINGE 10 ML IV SCH ×2 (11:17→21:15)
--- NOTE | 2018-02-28 11:22 | Gastroenterology Consultation ---
History of Present Illness - Reason for Consult Consult date: 02/28/18 suspected C-diff? Requesting physician: PAUL OLSEN - History of Present Illness Patient is a 62 y/o male with PMH of HTN, DM, A-fib, obesity, lymphedena, and chronic respiratory failure who was brought from SNF to ED for c/o decreased responsiveness and SOB. Upon admission he was found to be hypoxic and was intubated. Head CT was negative. CTA of chest was negative for PE but revealed bilateral atelectasis/infiltrate and colonic dilation. Surgery was consulted with recommendations for a rectal tube (pending placement) and repeat abd CT with contrast. Repeat CT showed dilated gallbladder (w/mild pericholecystic fluid) and transverse colon but contrast extending to the rectum with no evidence of obstruction. This morning patient was resting in the bed in ICU. He is currently on the vent but alert and able to shake his head to questions w/o acute distress. Patient is previously known to our service from a recent consult last week on 02/20/18 for a LGI bleed which resolved after d/c of xarelto. Last colonoscopy negative at [facility] 1 year ago by report. Denies abd pain or active signs of bleeding. Diarrhea reported by ED staff but no further episodes since admission. C-diff pending. Past History Past Medical History: atrial fib, diabetes, hypertension, other (morbid obesity , lymphedema, and chronic respiratory failure) Past Surgical History: No surgical history Social history: other ([facility] resident) Family history: hypertension Medications and Allergies Allergies Allergy/AdvReac Type Severity Reaction Status Date / Time linezolid Allergy Unknown Verified 02/19/18 14:30 morphine Allergy Unknown Verified 02/19/18 14:30 vancomycin Allergy Unknown Verified 02/19/18 14:30 Home Medications Medication Instructions Recorded Confirmed Last Taken Type ALBUTEROL NEB's [Proventil 0.083% 3 ml INHALATION Q4HR PRN 02/20/18 02/20/18 Unknown History NEBS] Amiodarone [Cordarone 200 MG TAB] 400 mg PO DAILY 02/20/18 02/20/18 Unknown History Ascorbic Acid [Vitamin C] 500 mg PO DAILY 02/20/18 02/20/18 Unknown History AtorvaSTATin [Lipitor] 40 mg PO QHS 02/20/18 02/20/18 Unknown History Dextrose [Glucose Gel] 1 applic PO PRN 02/20/18 02/20/18 Unknown History Hydrocolloid Dressing [Duoderm] 1 applicatio TP Q3D 02/20/18 02/20/18 Unknown History Hydrophilic Ointment [Dermafix] 1 applicatio TP BID 02/20/18 02/20/18 Unknown History Ipratropium [place] [Atrovent Hfa] 0.02 ampul IH Q4H PRN 02/20/18 02/20/18 Unknown History Loperamide HCl [Loperamide] 2 mg PO Q6HR PRN 02/20/18 02/20/18 Unknown History Miconazole Nitrate 1 applic TP BID 02/20/18 02/20/18 Unknown History Multivit-Min/Iron/Folic Acid/K 1 tab PO DAILY 02/20/18 02/20/18 Unknown History [Adults Multivitamin Tablet] Pantoprazole [Protonix TAB] 40 mg PO DAILY 02/20/18 02/20/18 Unknown History Sodium Bicarbonate 650 mg PO DAILY 02/20/18 02/20/18 Unknown History oxyCODONE [Roxicodone TAB] 5 mg PO Q6H PRN 02/20/18 02/20/18 Unknown History Active Meds: Active Medications Acetaminophen (Tylenol) 650 mg PO Q4H PRN PRN Reason: Pain MILD(1-3)/Fever >100.5/MARES Dextrose (D50w (25gm) Syringe) 50 ml IV PRN PRN PRN Reason: Hypoglycemia Enoxaparin Sodium (Lovenox) 40 mg SUB-Q QDAY@2200 KRYSTYNA Furosemide (Lasix) 20 mg IV Q12H KRYSTYNA Stop: 03/01/18 23:01 Hydrophilic Ointment (Vaseline Lip Therapy) 1 applic TP Q2HR PRN PRN Reason: Dry Lips Hydrophilic Ointment (Vaseline Lip Therapy) 1 applic TP Q2HR PRN PRN Reason: Dry Lips Propofol (Diprivan 10 Mg/Ml) 1,000 mg in 100 mls @ 5.579 mls/hr IV TITR KRYSTYNA; Protocol Last Titration: 02/28/18 05:20 Dose: 0 mcg/kg/min, 0 mls/hr Sodium Chloride (Nacl 0.9% 1000 Ml) 1,000 mls @ 100 mls/hr IV DIRECT KRYSTYNA Last Admin: 02/28/18 04:30 Dose: 100 mls/hr Piperacillin Sod/Tazobactam Sod (Zosyn/Ns 3.375gm/50ml) 3.375 gm in 50 mls @ 100 mls/hr IV Q6HR KRYSTYNA; Protocol Metronidazole (Flagyl 500 Mg/100 Ml) 500 mg in 100 mls @ 100 mls/hr IV Q8HR KRYSTYNA ; Protocol Potassium Chloride 80 meq/ (Sodium Chloride) 1,040 mls @ 125 mls/hr IV BOLUS ONE Stop: 02/28/18 19:19 Insulin Human Lispro (Humalog) 0 unit SUB-Q Q6HR KRYSTYNA; Protocol Last Admin: 02/28/18 06:26 Dose: Not Given Multi-Ingred Cream/Lotion/Oil/Oint (Artificial Tears Ophth Oint) 1 applic OU Q4HR PRN PRN Reason: Dry Eye(s) Multi-Ingred Cream/Lotion/Oil/Oint (Artificial Tears Ophth Oint) 1 applic OU Q4HR PRN PRN Reason: Dry Eye(s) Ondansetron HCl (Zofran) 4 mg IV Q8H PRN PRN Reason: Nausea And Vomiting Sodium Chloride (Nacl 0.9% 500 Ml) 1 ml IV DIRECT KRYSTYNA Sodium Chloride (Sodium Chloride Flush Syringe 10 Ml) 10 ml IV BID KRYSTYNA Sodium Chloride (Sodium Chloride Flush Syringe 10 Ml) 10 ml IV PRN PRN PRN Reason: LINE FLUSH Vancomycin HCl (Vancomycin Po) 250 mg FEEDTUBE Q6HR KRYSTYNA Review of Systems - Review of Systems ROS unobtainable: due to endotracheal tube Exam - Constitutional Vital Signs: Temp Pulse Resp BP Pulse Ox 97.4 F L 104 H 16 127/63 96 02/27/18 18:48 02/28/18 11:11 02/28/18 11:11 02/28/18 11:11 02/28/18 10:51 General appearance: no acute distress, other (intubated on vent) - EENT ENT: other (+ETT, NG tube) - Respiratory Respiratory: bilateral: rhonchi - Cardiovascular Rhythm: other (tachycardia) - Gastrointestinal General gastrointestinal: Present: soft, non-distended, hypoactive bowel sounds , other (obese) - Labs CBC & Chem 7: 02/28/18 05:50 02/28/18 09:29 Lab Results: Laboratory Results - last 24 hr 02/27/18 02/27/18 02/27/18 20:11 20:11 20:11 WBC 8.3 RBC 3.06 L Hgb 8.8 L Hct 29.1 L MCV 95 H MCH 29 MCHC 30 L RDW 18.0 H Plt Count 433 Lymph % (Auto) 9.2 L [place] % (Auto) 12.3 H Eos % (Auto) 0.1 Baso % (Auto) 0.3 Lymph # 0.8 L [place] # 1.0 H Eos # 0.0 Baso # 0.0 Add Manual Diff Complete Total Counted Seg Neutrophils % 78.1 H Seg Neuts % (Manual) Band Neutrophils % Lymphocytes % (Manual) Reactive Lymphs % (Man) Monocytes % (Manual) Eosinophils % (Manual) Basophils % (Manual) Metamyelocytes % Myelocytes % Promyelocytes % Blast Cells % Nucleated RBC % Seg Neutrophils # 6.5 Seg Neutrophils # Man Band Neutrophils # Lymphocytes # (Manual) Abs React Lymphs (Man) Monocytes # (Manual) Eosinophils # (Manual) Basophils # (Manual) Metamyelocytes # Myelocytes # Promyelocytes # Blast Cells # WBC Morphology Hypersegmented Neuts Hyposegmented Neuts Hypogranular Neuts Smudge Cells Toxic Granulation Toxic Vacuolation Dohle Bodies Pelger-Huet Anomaly Mikey Rods Platelet Estimate Clumped Platelets Plt Clumps, EDTA Large Platelets Giant Platelets Platelet Satelliting Plt Morphology Comment RBC Morphology Dimorphic RBCs Polychromasia Hypochromasia Poikilocytosis Anisocytosis Microcytosis Macrocytosis Spherocytes Pappenheimer Bodies Sickle Cells Target Cells Tear Drop Cells Ovalocytes Helmet Cells [place] Bodies [place] Rings [place]sey Cells Bite Cells Crenated Cell Elliptocytes Acanthocytes (Spur) Rouleaux Hemoglobin C Crystals Schistocytes Malaria parasites David Bodies Hem Pathologist Commnt D-Dimer 1135.90 H POC ABG pH POC ABG pCO2 POC ABG pO2 POC ABG HCO3 POC ABG Total CO2 POC ABG O2 Sat POC ABG Base Excess FiO2 Sodium 137 Potassium 4.8 Chloride 93.7 L Carbon Dioxide 30 Anion Gap 18 BUN 11 Creatinine 1.1 Estimated GFR > 60 BUN/Creatinine Ratio 10 Glucose 100 POC Glucose Lactic Acid Calcium 9.2 Magnesium Total Bilirubin 0.30 AST 42 H ALT 21 Alkaline Phosphatase 93 Total Creatine Kinase 51 L CK-MB (CK-2) 1.4 CK-MB (CK-2) Rel Index 2.7 Troponin T 0.046 H C-Reactive Protein NT-Pro-B Natriuret Pep Total Protein 7.8 Albumin 3.1 L Albumin/Globulin Ratio 0.7 Triglycerides 92 Cholesterol 128 LDL Cholesterol Direct 71 HDL Cholesterol 52 Cholesterol/HDL Ratio 2.46 Urine Color Urine Turbidity Urine pH Ur Specific [place] Urine Protein Urine Glucose (UA) Urine Ketones Urine Blood Urine Nitrite Urine Bilirubin Urine Urobilinogen Ur Leukocyte Esterase Urine WBC (Auto) Urine RBC (Auto) U Epithel Cells (Auto) Urine Bacteria (Auto) Urine WBC Clumps Hyaline Casts Urine Mucus Urine Opiates Screen Urine Methadone Screen Ur Barbiturates Screen Ur Phencyclidine Scrn Ur Amphetamines Screen U Benzodiazepines Scrn Urine Cocaine Screen U Marijuana (THC) Screen Drugs of Abuse Note 02/27/18 02/27/18 02/27/18 20:11 20:25 21:16 WBC RBC Hgb Hct MCV MCH MCHC RDW Plt Count Lymph % (Auto) [place] % (Auto) Eos % (Auto) Baso % (Auto) Lymph # [place] # Eos # Baso # Add Manual Diff Total Counted Seg Neutrophils % Seg Neuts % (Manual) Band Neutrophils % Lymphocytes % (Manual) Reactive Lymphs % (Man) Monocytes % (Manual) Eosinophils % (Manual) Basophils % (Manual) Metamyelocytes % Myelocytes % Promyelocytes % Blast Cells % Nucleated RBC % Seg Neutrophils # Seg Neutrophils # Man Band Neutrophils # Lymphocytes # (Manual) Abs React Lymphs (Man) Monocytes # (Manual) Eosinophils # (Manual) Basophils # (Manual) Metamyelocytes # Myelocytes # Promyelocytes # Blast Cells # WBC Morphology Hypersegmented Neuts Hyposegmented Neuts Hypogranular Neuts Smudge Cells Toxic Granulation Toxic Vacuolation Dohle Bodies Pelger-Huet Anomaly Mikey Rods Platelet Estimate Clumped Platelets Plt Clumps, EDTA Large Platelets Giant Platelets Platelet Satelliting Plt Morphology Comment RBC Morphology Dimorphic RBCs Polychromasia Hypochromasia Poikilocytosis Anisocytosis Microcytosis Macrocytosis Spherocytes Pappenheimer Bodies Sickle Cells Target Cells Tear Drop Cells Ovalocytes Helmet Cells [place] Bodies [place] Rings [place] Cells Bite Cells Crenated Cell Elliptocytes Acanthocytes (Spur) Rouleaux Hemoglobin C Crystals Schistocytes Malaria parasites David Bodies Hem Pathologist Commnt D-Dimer POC ABG pH 7.430 POC ABG pCO2 60.6 H POC ABG pO2 269 H POC ABG HCO3 40.2 POC ABG Total CO2 42 POC ABG O2 Sat 100 POC ABG Base Excess 16 FiO2 100 Sodium Potassium Chloride Carbon Dioxide Anion Gap BUN Creatinine Estimated GFR BUN/Creatinine Ratio Glucose POC Glucose Lactic Acid 3.50 H* 1.70 Calcium Magnesium Total Bilirubin AST ALT Alkaline Phosphatase Total Creatine Kinase CK-MB (CK-2) CK-MB (CK-2) Rel Index Troponin T C-Reactive Protein NT-Pro-B Natriuret Pep Total Protein Albumin Albumin/Globulin Ratio Triglycerides Cholesterol LDL Cholesterol Direct HDL Cholesterol Cholesterol/HDL Ratio Urine Color Urine Turbidity Urine pH Ur Specific [place] Urine Protein Urine Glucose (UA) Urine Ketones Urine Blood Urine Nitrite Urine Bilirubin Urine Urobilinogen Ur Leukocyte Esterase Urine WBC (Auto) Urine RBC (Auto) U Epithel Cells (Auto) Urine Bacteria (Auto) Urine WBC Clumps Hyaline Casts Urine Mucus Urine Opiates Screen Urine Methadone Screen Ur Barbiturates Screen Ur Phencyclidine Scrn Ur Amphetamines Screen U Benzodiazepines Scrn Urine Cocaine Screen U Marijuana (THC) Screen Drugs of Abuse Note 02/27/18 02/27/18 02/28/18 21:28 23:59 01:46 WBC RBC Hgb Hct MCV MCH MCHC RDW Plt Count Lymph % (Auto) [place] % (Auto) Eos % (Auto) Baso % (Auto) Lymph # [place] # Eos # Baso # Add Manual Diff Total Counted Seg Neutrophils % Seg Neuts % (Manual) Band Neutrophils % Lymphocytes % (Manual) Reactive Lymphs % (Man) Monocytes % (Manual) Eosinophils % (Manual) Basophils % (Manual) Metamyelocytes % Myelocytes % Promyelocytes % Blast Cells % Nucleated RBC % Seg Neutrophils # Seg Neutrophils # Man Band Neutrophils # Lymphocytes # (Manual) Abs React Lymphs (Man) Monocytes # (Manual) Eosinophils # (Manual) Basophils # (Manual) Metamyelocytes # Myelocytes # Promyelocytes # Blast Cells # WBC Morphology Hypersegmented Neuts Hyposegmented Neuts Hypogranular Neuts Smudge Cells Toxic Granulation Toxic Vacuolation Dohle Bodies Pelger-Huet Anomaly Mikey Rods Platelet Estimate Clumped Platelets Plt Clumps, EDTA Large Platelets Giant Platelets Platelet Satelliting Plt Morphology Comment RBC Morphology Dimorphic RBCs Polychromasia Hypochromasia Poikilocytosis Anisocytosis Microcytosis Macrocytosis Spherocytes Pappenheimer Bodies Sickle Cells Target Cells Tear Drop Cells Ovalocytes Helmet Cells [place] Bodies [place] Rings [place] Cells Bite Cells Crenated Cell Elliptocytes Acanthocytes (Spur) Rouleaux Hemoglobin C Crystals Schistocytes Malaria parasites David Bodies Hem Pathologist Commnt D-Dimer POC ABG pH POC ABG pCO2 POC ABG pO2 POC ABG HCO3 POC ABG Total CO2 POC ABG O2 Sat POC ABG Base Excess FiO2 Sodium Potassium Chloride Carbon Dioxide Anion Gap BUN Creatinine Estimated GFR BUN/Creatinine Ratio Glucose POC Glucose Lactic Acid Calcium Magnesium Total Bilirubin AST ALT Alkaline Phosphatase Total Creatine Kinase 34 L 41 L CK-MB (CK-2) 1.3 1.2 CK-MB (CK-2) Rel Index 3.8 2.9 Troponin T 0.042 H 0.046 H C-Reactive Protein NT-Pro-B Natriuret Pep 3021 H Total Protein Albumin Albumin/Globulin Ratio Triglycerides Cholesterol LDL Cholesterol Direct HDL Cholesterol Cholesterol/HDL Ratio Urine Color Urine Turbidity Urine pH Ur Specific [place] Urine Protein Urine Glucose (UA) Urine Ketones Urine Blood Urine Nitrite Urine Bilirubin Urine Urobilinogen Ur Leukocyte Esterase Urine WBC (Auto) Urine RBC (Auto) U Epithel Cells (Auto) Urine Bacteria (Auto) Urine WBC Clumps Hyaline Casts Urine Mucus Urine Opiates Screen Urine Methadone Screen Ur Barbiturates Screen Ur Phencyclidine Scrn Ur Amphetamines Screen U Benzodiazepines Scrn Urine Cocaine Screen U Marijuana (THC) Screen Drugs of Abuse Note 02/28/18 02/28/18 02/28/18 02:03 02:03 05:50 WBC 6.7 RBC 2.85 L Hgb 8.2 L Hct 25.2 L MCV 89 MCH 29 MCHC 33 RDW 17.8 H Plt Count 380 Lymph % (Auto) [place] % (Auto) Eos % (Auto) Baso % (Auto) Lymph # [place] # Eos # Baso # Add Manual Diff Complete Total Counted 100 Seg Neutrophils % Transition Program Manager Seg Neuts % (Manual) 77.0 H Band Neutrophils % 16.0 Lymphocytes % (Manual) 6.0 L Reactive Lymphs % (Man) 0 Monocytes % (Manual) 1.0 Eosinophils % (Manual) 0 Basophils % (Manual) 0 Metamyelocytes % 0 Myelocytes % 0 Promyelocytes % 0 Blast Cells % 0 Nucleated RBC % Not Reportable Seg Neutrophils # Seg Neutrophils # Man 5.2 Band Neutrophils # 1.1 Lymphocytes # (Manual) 0.4 L Abs React Lymphs (Man) 0.0 Monocytes # (Manual) 0.1 Eosinophils # (Manual) 0.0 Basophils # (Manual) 0.0 Metamyelocytes # 0.0 Myelocytes # 0.0 Promyelocytes # 0.0 Blast Cells # 0.0 WBC Morphology Not Reportable Hypersegmented Neuts Not Reportable Hyposegmented Neuts Not Reportable Hypogranular Neuts Not Reportable Smudge Cells Not Reportable Toxic Granulation Not Reportable Toxic Vacuolation Not Reportable Dohle Bodies Not Reportable Pelger-Huet Anomaly Not Reportable Mikey Rods Not Reportable Platelet Estimate Appears normal Clumped Platelets Not Reportable Plt Clumps, EDTA Not Reportable Large Platelets Not Reportable Giant Platelets Not Reportable Platelet Satelliting Not Reportable Plt Morphology Comment Not Reportable RBC Morphology Not Reportable Dimorphic RBCs Not Reportable Polychromasia Few Hypochromasia 1+ Poikilocytosis Not Reportable Anisocytosis 1+ Microcytosis Not Reportable Macrocytosis Not Reportable Spherocytes Few Pappenheimer Bodies Not Reportable Sickle Cells Not Reportable Target Cells Not Reportable Tear Drop Cells Not Reportable Ovalocytes Few Helmet Cells Not Reportable [place] Bodies Not Reportable [place] Rings Not Reportable [place] Cells Not Reportable Bite Cells Not Reportable Crenated Cell Not Reportable Elliptocytes Not Reportable Acanthocytes (Spur) Not Reportable Rouleaux Not Reportable Hemoglobin C Crystals Not Reportable Schistocytes Not Reportable Malaria parasites Not Reportable David Bodies Not Reportable Hem Pathologist Commnt No D-Dimer POC ABG pH POC ABG pCO2 POC ABG pO2 POC ABG HCO3 POC ABG Total CO2 POC ABG O2 Sat POC ABG Base Excess FiO2 Sodium Potassium Chloride Carbon Dioxide Anion Gap BUN Creatinine Estimated GFR BUN/Creatinine Ratio Glucose POC Glucose Lactic Acid Calcium Magnesium Total Bilirubin AST ALT Alkaline Phosphatase Total Creatine Kinase CK-MB (CK-2) CK-MB (CK-2) Rel Index Troponin T C-Reactive Protein NT-Pro-B Natriuret Pep Total Protein Albumin Albumin/Globulin Ratio Triglycerides Cholesterol LDL Cholesterol Direct HDL Cholesterol Cholesterol/HDL Ratio Urine Color Anitra Urine Turbidity Cloudy Urine pH 5.0 Ur Specific [place] 1.029 Urine Protein 100 mg/dl Urine Glucose (UA) Neg Urine Ketones Neg Urine Blood Neg Urine Nitrite Neg Urine Bilirubin Neg Urine Urobilinogen 2.0 Ur Leukocyte Esterase Lg Urine WBC (Auto) 80.0 H Urine RBC (Auto) 4.0 U Epithel Cells (Auto) 4.0 Urine Bacteria (Auto) 2+ Urine WBC Clumps 3+ Hyaline Casts 98 Urine Mucus 2+ Urine Opiates Screen Presumptive negative Urine Methadone Screen Presumptive negative Ur Barbiturates Screen Presumptive negative Ur Phencyclidine Scrn Presumptive negative Ur Amphetamines Screen Presumptive negative U Benzodiazepines Scrn Presumptive negative Urine Cocaine Screen Presumptive negative U Marijuana (THC) Screen Presumptive negative Drugs of Abuse Note Disclamer 02/28/18 02/28/18 02/28/18 06:26 07:22 07:27 WBC RBC Hgb Hct MCV MCH MCHC RDW Plt Count Lymph % (Auto) [place] % (Auto) Eos % (Auto) Baso % (Auto) Lymph # [place] # Eos # Baso # Add Manual Diff Total Counted Seg Neutrophils % Seg Neuts % (Manual) Band Neutrophils % Lymphocytes % (Manual) Reactive Lymphs % (Man) Monocytes % (Manual) Eosinophils % (Manual) Basophils % (Manual) Metamyelocytes % Myelocytes % Promyelocytes % Blast Cells % Nucleated RBC % Seg Neutrophils # Seg Neutrophils # Man Band Neutrophils # Lymphocytes # (Manual) Abs React Lymphs (Man) Monocytes # (Manual) Eosinophils # (Manual) Basophils # (Manual) Metamyelocytes # Myelocytes # Promyelocytes # Blast Cells # WBC Morphology Hypersegmented Neuts Hyposegmented Neuts Hypogranular Neuts Smudge Cells Toxic Granulation Toxic Vacuolation Dohle Bodies Pelger-Huet Anomaly Mikey Rods Platelet Estimate Clumped Platelets Plt Clumps, EDTA Large Platelets Giant Platelets Platelet Satelliting Plt Morphology Comment RBC Morphology Dimorphic RBCs Polychromasia Hypochromasia Poikilocytosis Anisocytosis Microcytosis Macrocytosis Spherocytes Pappenheimer Bodies Sickle Cells Target Cells Tear Drop Cells Ovalocytes Helmet Cells [place] Bodies [place] Rings [place] Cells Bite Cells Crenated Cell Elliptocytes Acanthocytes (Spur) Rouleaux Hemoglobin C Crystals Schistocytes Malaria parasites David Bodies Hem Pathologist Commnt D-Dimer POC ABG pH POC ABG pCO2 POC ABG pO2 POC ABG HCO3 POC ABG Total CO2 POC ABG O2 Sat POC ABG Base Excess FiO2 Sodium 140 Potassium 2.6 L* D Chloride 97.3 L Carbon Dioxide 32 H Anion Gap 13 BUN 12 Creatinine 1.0 Estimated GFR > 60 BUN/Creatinine Ratio 12 Glucose 111 H POC Glucose 102 Lactic Acid Calcium 9.1 Magnesium Total Bilirubin AST ALT Alkaline Phosphatase Total Creatine Kinase 47 L CK-MB (CK-2) 1.1 CK-MB (CK-2) Rel Index 2.3 Troponin T 0.063 H D C-Reactive Protein NT-Pro-B Natriuret Pep Total Protein Albumin Albumin/Globulin Ratio Triglycerides Cholesterol LDL Cholesterol Direct HDL Cholesterol Cholesterol/HDL Ratio Urine Color Urine Turbidity Urine pH Ur Specific [place] Urine Protein Urine Glucose (UA) Urine Ketones Urine Blood Urine Nitrite Urine Bilirubin Urine Urobilinogen Ur Leukocyte Esterase Urine WBC (Auto) Urine RBC (Auto) U Epithel Cells (Auto) Urine Bacteria (Auto) Urine WBC Clumps Hyaline Casts Urine Mucus Urine Opiates Screen Urine Methadone Screen Ur Barbiturates Screen Ur Phencyclidine Scrn Ur Amphetamines Screen U Benzodiazepines Scrn Urine Cocaine Screen U Marijuana (THC) Screen Drugs of Abuse Note 02/28/18 02/28/18 02/28/18 09:29 09:29 10:53 WBC RBC Hgb Hct MCV MCH MCHC RDW Plt Count Lymph % (Auto) [place] % (Auto) Eos % (Auto) Baso % (Auto) Lymph # [place] # Eos # Baso # Add Manual Diff Total Counted Seg Neutrophils % Seg Neuts % (Manual) Band Neutrophils % Lymphocytes % (Manual) Reactive Lymphs % (Man) Monocytes % (Manual) Eosinophils % (Manual) Basophils % (Manual) Metamyelocytes % Myelocytes % Promyelocytes % Blast Cells % Nucleated RBC % Seg Neutrophils # Seg Neutrophils # Man Band Neutrophils # Lymphocytes # (Manual) Abs React Lymphs (Man) Monocytes # (Manual) Eosinophils # (Manual) Basophils # (Manual) Metamyelocytes # Myelocytes # Promyelocytes # Blast Cells # WBC Morphology Hypersegmented Neuts Hyposegmented Neuts Hypogranular Neuts Smudge Cells Toxic Granulation Toxic Vacuolation Dohle Bodies Pelger-Huet Anomaly Mikey Rods Platelet Estimate Clumped Platelets Plt Clumps, EDTA Large Platelets Giant Platelets Platelet Satelliting Plt Morphology Comment RBC Morphology Dimorphic RBCs Polychromasia Hypochromasia Poikilocytosis Anisocytosis Microcytosis Macrocytosis Spherocytes Pappenheimer Bodies Sickle Cells Target Cells Tear Drop Cells Ovalocytes Helmet Cells [place] Bodies [place] Rings [place] Cells Bite Cells Crenated Cell Elliptocytes Acanthocytes (Spur) Rouleaux Hemoglobin C Crystals Schistocytes Malaria parasites David Bodies Hem Pathologist Commnt D-Dimer POC ABG pH 7.510 H POC ABG pCO2 48.8 H POC ABG pO2 70 L POC ABG HCO3 38.9 POC ABG Total CO2 40 POC ABG O2 Sat 95 POC ABG Base Excess 16 FiO2 45 Sodium Potassium 3.2 L D Chloride Carbon Dioxide Anion Gap BUN Creatinine Estimated GFR BUN/Creatinine Ratio Glucose POC Glucose Lactic Acid Calcium Magnesium 1.60 L Total Bilirubin AST ALT Alkaline Phosphatase Total Creatine Kinase CK-MB (CK-2) CK-MB (CK-2) Rel Index Troponin T C-Reactive Protein 5.30 H NT-Pro-B Natriuret Pep Total Protein Albumin Albumin/Globulin Ratio Triglycerides Cholesterol LDL Cholesterol Direct HDL Cholesterol Cholesterol/HDL Ratio Urine Color Urine Turbidity Urine pH Ur Specific [place] Urine Protein Urine Glucose (UA) Urine Ketones Urine Blood Urine Nitrite Urine Bilirubin Urine Urobilinogen Ur Leukocyte Esterase Urine WBC (Auto) Urine RBC (Auto) U Epithel Cells (Auto) Urine Bacteria (Auto) Urine WBC Clumps Hyaline Casts Urine Mucus Urine Opiates Screen Urine Methadone Screen Ur Barbiturates Screen Ur Phencyclidine Scrn Ur Amphetamines Screen U Benzodiazepines Scrn Urine Cocaine Screen U Marijuana (THC) Screen Drugs of Abuse Note Assessment and Plan 1.dilated colon -CT scan showed dilated transverse colon but contrast extending to the rectum with no evidence of obstruction -etiology unclear -C-diff pending for reported diarrhea -surgery consult pending -Keep NPO -agree with surgery recommendations for rectal tube placement -continue NG tube to LIS -will discuss CT findings with Dr. Mckeon and have him review -consider colonic decompression based on progress -further recommendations to follow 2.recent LGIB -resolved after d/c of xarelto -H/H 8.2/25.2-stable compared to previous labs -continue to monitor H/H and transfuse as needed -no active signs of bleeding -Colonoscopy (-) at [facility] 1 year ago (per patient report) -will need f/u with GI service at [facility] 3.respiratory failure 4.sepsis 5..pneumonia
[2018-02-28] MEDS ORDERED: AMIDATE IV ONE (11:55)
[2018-02-28] MEDS ORDERED: QUELICIN ONE (11:55)
[2018-02-28] MEDS ORDERED: VANCOMYCIN PO FEEDTUBE SCH (12:00)
--- NOTE | 2018-02-28 13:16 | XRay Report ---
AP CHEST: HISTORY: Right arm PICC placement A right arm PICC has been inserted which is last visualized in the mid SVC. The remainder of the examination is unchanged since earlier today at 0738 hours. IMPRESSION: The right arm PICC terminates in the mid SVC.
--- NOTE | 2018-02-28 13:33 | Progress Note ---
Assessment and Plan Full consult dictated Morbidly obese male dilated colon on CT r/o obst. f/u CT with contrast shows good flow of contrast throughout colon. Abd - morbidly obese. soft r/o Negin's synd. possibly secondary to electrolyte abnormalities (low K, low Mg) noted. check for any psych or pain meds as possible cause. Infection can also be a cause. rec - rectal tube to low intermittent suction and correction of electrolytes. GI eval does not appear that pt will need any gen surgical intervention at this time. will follow prn History of Present Illness Date of examination: 02/28/18 History of present illness: 62-year-old man with history of hypertension, diabetes, A. fib, lymphedema, chronic respiratory failure was sent from group home for evaluation of decreased responsiveness and shortness of breath. Patient is on ventilator, review of system is unobtainable. He was just discharged from the hospital on the 16th of this month for GI bleed, xarelto was put on hold PAST MEDICAL HISTORY:hypertension, diabetes, A. fib, lymphedema, chronic respiratory failure PAST SURGICAL HISTORY: Unknown SOCIAL HISTORY: Unknown FAMILY HISTORY: Unknown Selected Entries 02/27/18 02/28/18 18:48 13:11 Temperature 97.4 F L Pulse Rate 111 H Respiratory 20 Rate Blood Pressure 111/51 Laboratory Tests 02/27/18 02/28/18 02/28/18 20:11 05:50 07:22 WBC 6.7 Hgb 8.8 L 8.2 L Hct 29.1 L 25.2 L Potassium 2.6 L* D Calcium 9.1 Magnesium 02/28/18 09:29 WBC Hgb Hct Potassium Calcium Magnesium 1.60 L Objective Vital Signs - 12hr 02/28/18 02/28/18 02/28/18 01:31 02:00 02:20 Pulse Rate 80 83 89 Respiratory 24 21 Rate Blood Pressure 97/59 103/61 92/58 O2 Sat by Pulse 98 98 97 Oximetry 02/28/18 02/28/18 02/28/18 02:31 03:00 03:30 Pulse Rate 83 75 89 Respiratory 21 24 24 Rate Blood Pressure 98/57 83/55 102/61 O2 Sat by Pulse 96 95 96 Oximetry 02/28/18 02/28/18 02/28/18 04:00 04:30 05:31 Pulse Rate 82 81 Respiratory 24 24 Rate Blood Pressure 100/55 94/51 102/79 O2 Sat by Pulse 94 93 95 Oximetry 02/28/18 02/28/18 02/28/18 06:00 06:14 06:30 Pulse Rate 97 H Respiratory Rate Blood Pressure 92/58 128/65 128/65 O2 Sat by Pulse 98 97 99 Oximetry 02/28/18 02/28/18 02/28/18 07:01 07:30 08:00 Pulse Rate 91 H 98 H 94 H Respiratory 22 18 18 Rate Blood Pressure 145/73 125/69 142/69 O2 Sat by Pulse 97 98 100 Oximetry 02/28/18 02/28/18 02/28/18 08:31 08:41 08:51 Pulse Rate 101 H 105 H 103 H Respiratory 20 21 21 Rate Blood Pressure 134/64 134/64 134/64 O2 Sat by Pulse 98 95 96 Oximetry 02/28/18 02/28/18 02/28/18 09:00 09:18 09:45 Pulse Rate 97 H 106 H Respiratory 21 24 Rate Blood Pressure O2 Sat by Pulse 96 96 96 Oximetry 02/28/18 02/28/18 02/28/18 09:51 10:00 10:11 Pulse Rate 109 H 103 H 104 H Respiratory 17 22 19 Rate Blood Pressure 105/78 105/78 O2 Sat by Pulse 97 78 L 97 Oximetry 02/28/18 02/28/18 02/28/18 10:21 10:31 10:41 Pulse Rate 115 H 100 H 95 H Respiratory 21 24 16 Rate Blood Pressure 105/78 105/78 105/78 O2 Sat by Pulse 96 97 96 Oximetry 02/28/18 02/28/18 02/28/18 10:51 11:00 11:01 Pulse Rate 94 H 95 H Respiratory 21 22 15 Rate Blood Pressure 105/78 127/63 O2 Sat by Pulse 96 99 Oximetry 02/28/18 02/28/18 02/28/18 11:11 11:21 11:31 Pulse Rate 104 H 96 H 93 H Respiratory 16 16 17 Rate Blood Pressure 127/63 127/63 127/63 O2 Sat by Pulse 97 100 Oximetry 02/28/18 02/28/18 02/28/18 11:41 11:51 12:00 Pulse Rate 109 H 95 H 98 H Respiratory 20 19 22 Rate Blood Pressure 127/63 127/63 105/51 O2 Sat by Pulse 94 97 99 Oximetry 02/28/18 02/28/18 02/28/18 12:11 12:21 12:31 Pulse Rate 93 H 90 92 H Respiratory 21 16 19 Rate Blood Pressure 105/51 127/63 127/63 O2 Sat by Pulse 97 95 Oximetry 02/28/18 02/28/18 02/28/18 12:41 12:51 13:00 Pulse Rate 95 H 95 H Respiratory 19 19 21 Rate Blood Pressure 127/63 127/63 O2 Sat by Pulse 98 100 98 Oximetry 02/28/18 02/28/18 13:01 13:11 Pulse Rate 92 H 111 H Respiratory 20 20 Rate Blood Pressure 111/51 111/51 O2 Sat by Pulse 98 98 Oximetry - Labs 02/28/18 05:50 02/28/18 09:29 Diabetes panel 02/27/18 02/28/18 02/28/18 Range/Units 20:11 07:22 09:29 Sodium 137 140 (137-145) mmol/L Potassium 4.8 2.6 L* D 3.2 L D (3.6-5.0) mmol/L Chloride 93.7 L 97.3 L (98-107) mmol/L Carbon Dioxide 30 32 H (22-30) mmol/L BUN 11 12 (9-20) mg/dL Creatinine 1.1 1.0 (0.8-1.5) mg/dL Glucose 100 111 H (75-100) mg/dL Calcium 9.2 9.1 (8.4-10.2) mg/dL AST 42 H (5-40) units/L ALT 21 (7-56) units/L Alkaline Phosphatase 93 (35-129) units/L Total Protein 7.8 (6.3-8.2) g/dL Albumin 3.1 L (3.9-5) g/dL Triglycerides 92 (2-149) mg/dL HDL Cholesterol 52 (40-59) mg/dL Calcium panel 02/27/18 02/28/18 Range/Units 20:11 07:22 Calcium 9.2 9.1 (8.4-10.2) mg/dL Albumin 3.1 L (3.9-5) g/dL Pituitary panel 02/27/18 02/28/18 02/28/18 Range/Units 20:11 07:22 09:29 Sodium 137 140 (137-145) mmol/L Potassium 4.8 2.6 L* D 3.2 L D (3.6-5.0) mmol/L Chloride 93.7 L 97.3 L (98-107) mmol/L Carbon Dioxide 30 32 H (22-30) mmol/L BUN 11 12 (9-20) mg/dL Creatinine 1.1 1.0 (0.8-1.5) mg/dL Glucose 100 111 H (75-100) mg/dL Calcium 9.2 9.1 (8.4-10.2) mg/dL Adrenal panel 02/27/18 02/28/18 02/28/18 Range/Units 20:11 07:22 09:29 Sodium 137 140 (137-145) mmol/L Potassium 4.8 2.6 L* D 3.2 L D (3.6-5.0) mmol/L Chloride 93.7 L 97.3 L (98-107) mmol/L Carbon Dioxide 30 32 H (22-30) mmol/L BUN 11 12 (9-20) mg/dL Creatinine 1.1 1.0 (0.8-1.5) mg/dL Glucose 100 111 H (75-100) mg/dL Calcium 9.2 9.1 (8.4-10.2) mg/dL Total Bilirubin 0.30 (0.1-1.2) mg/dL AST 42 H (5-40) units/L ALT 21 (7-56) units/L Alkaline Phosphatase 93 (35-129) units/L Total Protein 7.8 (6.3-8.2) g/dL Albumin 3.1 L (3.9-5) g/dL
[2018-02-28] MEDS ORDERED: MAGNESIUM SULFATE 2GM/50ML 2 GM/50 ML BAG IV ONE (14:00)
--- NOTE | 2018-02-28 14:14 | Progress Note ---
Assessment and Plan Assessment and plan: 62-year-old man with history of hypertension, diabetes, A. fib, lymphedema, chronic respiratory failure was [facility] from [facility] for evaluation of decreased responsiveness and shortness of breath. Patient is on ventilator, review of system is unobtainable. He was just discharged from the hospital on the 16th of this month for GI bleed, xarelto was put on hold PAST MEDICAL HISTORY:hypertension, diabetes, A. fib, lymphedema, chronic respiratory failure Acute on chronic respiratory failure on MV Pneumonia Urinary tract infection Dilatation of the large intestine, Partial bowel obstruction Abnormal cardiac enzymes, likely demand ischemia Hypertension Diabetes A. fib with hypercoaguable state Lymphedema Lower Extremity and sacral wounds Plan continuje vent Start IV Zosyn, follow cultures, ID Consulted fup echo rectal tube ordered, to decompress conservatively surgery input appreciated dw GI and ID aniticoagulants were dc due to GI bleed during previous admission Check fingersticks and initiate insulin sliding scale CCT 33 minutes Discussed with GI and ID consultants History Interval history: has been awake and alert and obeying commands intubated, and therefore non verbal -Still has abdominal distension -had A BM, and it was not diarrhea Hospitalist Physical - Physical exam Narrative exam: General.: Appears well, no distress, nontoxic HEENT: Moist mucous membranes, extraocular muscles intact, no lymphadenopathy Neck: supple Cardiac: S1-S2 heard Lungs: clear to auscultation bilaterally Abdomen: soft , nontender, nondistended, bowel sounds positive Extremities: no edema clubbing or cyanosis Skin: no rash or lesions Neurologic: Patient is intubated, therefore not currently verbal, moves all extremities. Alert, obeys verbal commands. - Constitutional Vitals: Temp Pulse Resp BP Pulse Ox 97.4 F L 111 H 20 111/51 98 02/27/18 18:48 02/28/18 13:11 02/28/18 13:11 02/28/18 13:11 02/28/18 13:11 Results - Labs CBC & Chem 7: 02/28/18 05:50 02/28/18 09:29 Labs: Laboratory Last Values WBC 6.7 K/mm3 (4.5-11.0) 02/28/18 05:50 RBC 2.85 M/mm3 (3.65-5.03) L 02/28/18 05:50 Hgb 8.2 gm/dl (11.8-15.2) L 02/28/18 05:50 Hct 25.2 % (35.5-45.6) L 02/28/18 05:50 MCV 89 fl (84-94) 02/28/18 05:50 MCH 29 pg (28-32) 02/28/18 05:50 MCHC 33 % (32-34) 02/28/18 05:50 RDW 17.8 % (13.2-15.2) H 02/28/18 05:50 Plt Count 380 K/mm3 (140-440) 02/28/18 05:50 Lymph % (Auto) 9.2 % (13.4-35.0) L 02/27/18 20:11 [place] % (Auto) 12.3 % (0.0-7.3) H 02/27/18 20:11 Eos % (Auto) 0.1 % (0.0-4.3) 02/27/18 20:11 Baso % (Auto) 0.3 % (0.0-1.8) 02/27/18 20:11 Lymph # 0.8 K/mm3 (1.2-5.4) L 02/27/18 20:11 [place] # 1.0 K/mm3 (0.0-0.8) H 02/27/18 20:11 Eos # 0.0 K/mm3 (0.0-0.4) 02/27/18 20:11 Baso # 0.0 K/mm3 (0.0-0.1) 02/27/18 20:11 Add Manual Diff Complete 02/28/18 05:50 Total Counted 100 02/28/18 05:50 Seg Neutrophils % [employer] 02/28/18 05:50 Seg Neuts % (Manual) 77.0 % (40.0-70.0) H 02/28/18 05:50 Band Neutrophils % 16.0 % 02/28/18 05:50 Lymphocytes % (Manual) 6.0 % (13.4-35.0) L 02/28/18 05:50 Reactive Lymphs % (Man) 0 % 02/28/18 05:50 Monocytes % (Manual) 1.0 % (0.0-7.3) 02/28/18 05:50 Eosinophils % (Manual) 0 % (0.0-4.3) 02/28/18 05:50 Basophils % (Manual) 0 % (0.0-1.8) 02/28/18 05:50 Metamyelocytes % 0 % 02/28/18 05:50 Myelocytes % 0 % 02/28/18 05:50 Promyelocytes % 0 % 02/28/18 05:50 Blast Cells % 0 % 02/28/18 05:50 Nucleated RBC % Not Reportable 02/28/18 05:50 Seg Neutrophils # 6.5 K/mm3 (1.8-7.7) 02/27/18 20:11 Seg Neutrophils # Man 5.2 K/mm3 (1.8-7.7) 02/28/18 05:50 Band Neutrophils # 1.1 K/mm3 02/28/18 05:50 Lymphocytes # (Manual) 0.4 K/mm3 (1.2-5.4) L 02/28/18 05:50 Abs React Lymphs (Man) 0.0 K/mm3 02/28/18 05:50 Monocytes # (Manual) 0.1 K/mm3 (0.0-0.8) 02/28/18 05:50 Eosinophils # (Manual) 0.0 K/mm3 (0.0-0.4) 02/28/18 05:50 Basophils # (Manual) 0.0 K/mm3 (0.0-0.1) 02/28/18 05:50 Metamyelocytes # 0.0 K/mm3 02/28/18 05:50 Myelocytes # 0.0 K/mm3 02/28/18 05:50 Promyelocytes # 0.0 K/mm3 02/28/18 05:50 Blast Cells # 0.0 K/mm3 02/28/18 05:50 WBC Morphology Not Reportable 02/28/18 05:50 Hypersegmented Neuts Not Reportable 02/28/18 05:50 Hyposegmented Neuts Not Reportable 02/28/18 05:50 Hypogranular Neuts Not Reportable 02/28/18 05:50 Smudge Cells Not Reportable 02/28/18 05:50 Toxic Granulation Not Reportable 02/28/18 05:50 Toxic Vacuolation Not Reportable 02/28/18 05:50 Dohle Bodies Not Reportable 02/28/18 05:50 Pelger-Huet Anomaly Not Reportable 02/28/18 05:50 Mikey Rods Not Reportable 02/28/18 05:50 Platelet Estimate Appears normal 02/28/18 05:50 Clumped Platelets Not Reportable 02/28/18 05:50 Plt Clumps, EDTA Not Reportable 02/28/18 05:50 Large Platelets Not Reportable 02/28/18 05:50 Giant Platelets Not Reportable 02/28/18 05:50 Platelet Satelliting Not Reportable 02/28/18 05:50 Plt Morphology Comment Not Reportable 02/28/18 05:50 RBC Morphology Not Reportable 02/28/18 05:50 Dimorphic RBCs Not Reportable 02/28/18 05:50 Polychromasia Few 02/28/18 05:50 Hypochromasia 1+ 02/28/18 05:50 Poikilocytosis Not Reportable 02/28/18 05:50 Anisocytosis 1+ 02/28/18 05:50 Microcytosis Not Reportable 02/28/18 05:50 Macrocytosis Not Reportable 02/28/18 05:50 Spherocytes Few 02/28/18 05:50 Pappenheimer Bodies Not Reportable 02/28/18 05:50 Sickle Cells Not Reportable 02/28/18 05:50 Target Cells Not Reportable 02/28/18 05:50 Tear Drop Cells Not Reportable 02/28/18 05:50 Ovalocytes Few 02/28/18 05:50 Helmet Cells Not Reportable 02/28/18 05:50 Lucero-Novinger Bodies Not Reportable 02/28/18 05:50 [place] Rings Not Reportable 02/28/18 05:50 [place] Cells Not Reportable 02/28/18 05:50 Bite Cells Not Reportable 02/28/18 05:50 Crenated Cell Not Reportable 02/28/18 05:50 Elliptocytes Not Reportable 02/28/18 05:50 Acanthocytes (Spur) Not Reportable 02/28/18 05:50 Rouleaux Not Reportable 02/28/18 05:50 Hemoglobin C Crystals Not Reportable 02/28/18 05:50 Schistocytes Not Reportable 02/28/18 05:50 Malaria parasites Not Reportable 02/28/18 05:50 David Bodies Not Reportable 02/28/18 05:50 Hem Pathologist Commnt No 02/28/18 05:50 D-Dimer 1135.90 ng/mlDDU (0-234) H 02/27/18 20:11 POC ABG pH 7.510 (7.35-7.45) H 02/28/18 10:53 POC ABG pCO2 48.8 (35-45) H 02/28/18 10:53 POC ABG pO2 70 (80-105) L 02/28/18 10:53 POC ABG HCO3 38.9 02/28/18 10:53 POC ABG Total CO2 40 02/28/18 10:53 POC ABG O2 Sat 95 02/28/18 10:53 POC ABG Base Excess 16 02/28/18 10:53 FiO2 45 % 02/28/18 10:53 Sodium 140 mmol/L (137-145) 02/28/18 07:22 Potassium 3.2 mmol/L (3.6-5.0) L D 02/28/18 09:29 Chloride 97.3 mmol/L (98-107) L 02/28/18 07:22 Carbon Dioxide 32 mmol/L (22-30) H 02/28/18 07:22 Anion Gap 13 mmol/L 02/28/18 07:22 BUN 12 mg/dL (9-20) 02/28/18 07:22 Creatinine 1.0 mg/dL (0.8-1.5) 02/28/18 07:22 Estimated GFR > 60 ml/min 02/28/18 07:22 BUN/Creatinine Ratio 12 % 02/28/18 07:22 Glucose 111 mg/dL (75-100) H 02/28/18 07:22 POC Glucose 128 (70-105) H 02/28/18 13:20 Lactic Acid 1.70 mmol/L (0.7-2.0) 02/27/18 21:16 Calcium 9.1 mg/dL (8.4-10.2) 02/28/18 07:22 Magnesium 1.60 mg/dL (1.7-2.3) L 02/28/18 09:29 Total Bilirubin 0.30 mg/dL (0.1-1.2) 02/27/18 20:11 AST 42 units/L (5-40) H 02/27/18 20:11 ALT 21 units/L (7-56) 02/27/18 20:11 Alkaline Phosphatase 93 units/L (35-129) 02/27/18 20:11 Total Creatine Kinase 47 units/L (55-170) L 02/28/18 07:27 CK-MB (CK-2) 1.1 ng/mL (0.0-4.0) 02/28/18 07:27 CK-MB (CK-2) Rel Index 2.3 (0-4) 02/28/18 07:27 Troponin T 0.063 ng/mL (0.00-0.029) H D 02/28/18 07:27 C-Reactive Protein 5.30 mg/dL (0.00-1.30) H 02/28/18 09:29 NT-Pro-B Natriuret Pep 3021 pg/mL (0-900) H 02/27/18 21:28 Total Protein 7.8 g/dL (6.3-8.2) 02/27/18 20:11 Albumin 3.1 g/dL (3.9-5) L 02/27/18 20:11 Albumin/Globulin Ratio 0.7 % 02/27/18 20:11 Triglycerides 92 mg/dL (2-149) 02/27/18 20:11 Cholesterol 128 mg/dL (50-199) 02/27/18 20:11 LDL Cholesterol Direct 71 mg/dL (50-130) 02/27/18 20:11 HDL Cholesterol 52 mg/dL (40-59) 02/27/18 20:11 Cholesterol/HDL Ratio 2.46 % 02/27/18 20:11 Urine Color Anitra (Yellow) 02/28/18 02:03 Urine Turbidity Cloudy (Clear) 02/28/18 02:03 Urine pH 5.0 (5.0-7.0) 02/28/18 02:03 Ur Specific [place] 1.029 (1.003-1.030) 02/28/18 02:03 Urine Protein 100 mg/dl mg/dL (Negative) 02/28/18 02:03 Urine Glucose (UA) Neg mg/dL (Negative) 02/28/18 02:03 Urine Ketones Neg mg/dL (Negative) 02/28/18 02:03 Urine Blood Neg (Negative) 02/28/18 02:03 Urine Nitrite Neg (Negative) 02/28/18 02:03 Urine Bilirubin Neg (Negative) 02/28/18 02:03 Urine Urobilinogen 2.0 mg/dL (<2.0) 02/28/18 02:03 Ur Leukocyte Esterase Lg (Negative) 02/28/18 02:03 Urine WBC (Auto) 80.0 /HPF (0.0-6.0) H 02/28/18 02:03 Urine RBC (Auto) 4.0 /HPF (0.0-6.0) 02/28/18 02:03 U Epithel Cells (Auto) 4.0 /HPF (0-13.0) 02/28/18 02:03 Urine Bacteria (Auto) 2+ /HPF (Negative) 02/28/18 02:03 Urine WBC Clumps 3+ /HPF 02/28/18 02:03 Hyaline Casts 98 /LPF 02/28/18 02:03 Urine Mucus 2+ /HPF 02/28/18 02:03 Urine Opiates Screen Presumptive negative 02/28/18 02:03 Urine Methadone Screen Presumptive negative 02/28/18 02:03 Ur Barbiturates Screen Presumptive negative 02/28/18 02:03 Ur Phencyclidine Scrn Presumptive negative 02/28/18 02:03 Ur Amphetamines Screen Presumptive negative 02/28/18 02:03 U Benzodiazepines Scrn Presumptive negative 02/28/18 02:03 Urine Cocaine Screen Presumptive negative 02/28/18 02:03 U Marijuana (THC) Screen Presumptive negative 02/28/18 02:03 Drugs of Abuse Note Disclamer 02/28/18 02:03
[2018-02-28] MEDS: MAXIPIME/NS 2 GM/100 ML 2 GM/100 ML BAG IV SCH ×2 (14:32→21:11)
[2018-02-28] MEDS: NACL 0.9% IV SCH (15:21)
[2018-02-28] MEDS: CUBICIN IV SCH (15:21)
[2018-02-28] MEDS: Centrum Liq PO SCH (15:24)
[2018-02-28] MEDS: DUONEB *Not for PRN Use IH SCH (19:54)
[2018-02-28] MEDS ORDERED: ATIVAN IV ONE (20:38)
[2018-02-28] MEDS ORDERED: DILAUDID IV ONE (20:38)
[2018-02-28] MEDS: LOVENOX SUB-Q SCH (21:14)
[2018-02-28] MEDS: SENOKOT S PO SCH (23:00)
--- NOTE | 2018-02-28 23:14 | Consultation ---
PULMONARY CRITICAL CARE CONSULT NOTE CONSULTING PHYSICIAN: Rebeca Amaya MD REASON FOR CONSULTATION: 1. Acute hypoxemic respiratory failure, on mechanical ventilatory support. 2. Acute encephalopathy. CHIEF COMPLAINT AND HISTORY OF PRESENT ILLNESS: The patient is a 62-year-old -[place] male with past medical history significant amongst other things for a diagnosis of morbid obesity and chronic respiratory failure apparently, who presented to the Emergency Room, brought in from the nursing room with complaints of shortness of breath according to the records. He had been hypoxemic. He complained of pain in his chest. Upon arrival in the Emergency Room, he had a low GCS. As a result of the low GCS and hypoxemia, a decision was made to intubate. He was intubated with rapid sequence intubation. He had been in this hospital a couple of weeks ago with a massive GI bleed and apparently his anticoagulation had been stopped. Post-intubation, we asked to assist with management. When I stopped by to see the patient, he was on the mechanical ventilator. He was able to respond to me appropriately. Obviously intubated. He denied any nausea or vomiting prior to coming to the hospital or the possibility of overt aspiration. With regards to tobacco use/abuse history, he is not a current smoker. Remote history is unknown at this point. This really is as much of the history of presentation as I have. PAST MEDICAL HISTORY: Morbidly obese, history of a recent acute GI bleed, history of hypertension, diabetes, history of recent diagnosis of acute renal failure, history of atrial fibrillation. PAST SURGICAL HISTORY: According to the records, no surgical history. MEDICATIONS: He was on at the time I stopped by to see him were reviewed. Pertinent medications included the following: Tylenol 650 mg p.o. q. 4 hours p.r.n. mild pain, insulin via sliding scale, Flagyl 500 mg IV q. 8 hours, Zofran 4 mg IV q. 8 hours p.r.n. nausea and vomiting, Zosyn 3.375 grams IV q. 6 hours. He had been on a propofol drip at 5 mcg per kilogram per minute earlier. Vancomycin 250 mg via feeding tube q. 6 hours scheduled. He received Lovenox 40 mg subcutaneous x 1. ALLERGIES: ZYVOX, MORPHINE, VANC. Nature of this allergy is unknown, but he was started on the vanc, he is on right now as far as we know. DIET: Morbidly obese, does not seem to have any significant weight loss or gain in the preceding few weeks to months. FAMILY AND SOCIAL HISTORY: long-term resident at least over the past few weeks. Denies current alcohol, tobacco, illicit drug use or abuse. Remote history is unknown. REVIEW OF SYSTEMS: Difficult to obtain secondary to the patient's current medical and mental status. He does seem to nod his head yes to chest pain. Since he has been here, no gross hematochezia or melena, no gross hematuria, no hematemesis, no bloody tracheal secretions, no witnessed seizures. Review of systems otherwise unobtainable or as in the body of history above. PHYSICAL EXAMINATION: VITAL SIGNS: At presentation in the Emergency Room was afebrile, temperature 97.4 degrees Fahrenheit with a pulse of 123, respiratory rate of 20, blood pressure 162/82, oxygen sats were 93%, inspired oxygen concentration at that time was not recorded. At the time I saw him, he was on the mechanical ventilator. I believe 40% FiO2, tidal volume, I believe 500, rate of 24, and a PEEP of 6 just switched actually to CPAP appears about 14, PEEP of 6 and 45% FiO2. GENERAL: Morbidly obese -[place] male. Normocephalic, atraumatic, on the mechanical ventilator with mildly increased respiratory effort. HEAD, EYES, EARS, NOSE AND THROAT: He is anicteric. No conjunctival erythema. Endotracheal tube is in place, taped at the lips around 23-24 cm. Oropharynx is moist. Grossly, no palpable lymph nodes in the supraclavicular or submandibular lymph node chains. No gross jugular venous distention. LUNGS: Auscultation of both lung [place] show diminished bilateral breath sounds, scant bilateral rhonchi, no wheezing. HEART: Heart sounds 1 and 2 are heard at the time of my evaluation, regular rate and rhythm without rubs or murmurs. ABDOMEN: Soft, full, bowel sounds are positive. Protuberant but not distended. It was nontender, no palpable hepatosplenomegaly. EXTREMITIES: Without digital clubbing or cyanosis. He did have trace bilateral pedal edema. He had a clean dressing to the right lower extremity that from the right dunn. Dorsalis pedis pulses were palpable bilaterally. NEUROLOGIC: The pupils were equal, round, about 3-4 mm, reactive to light. Extraocular muscle movements were intact. He moves all 4 extremities spontaneously. The skin was of poor turgor. He had cellulitis sent to the right dunn region. He had some ulcerations to the toes and he has a sacral decubitus that was described as a stage 2 sacral decubitus. LABORATORY DATA: From my review are as follows: Admission white cell count 8300 with a hemoglobin of 8.8, hematocrit of 29.1 and a platelet count of 433. No band forms reported. D-dimer was elevated 1135. Arterial blood gas showed a pH of 7.43, pCO2 of 61, pO2 of 269 that was on 100% FiO2 and I believe the above-mentioned vent settings. Serum sodium was 137, potassium 4.8, chloride 94, bicarbonate 30, BUN was 11, creatinine 1.1, glucose 100. Lactic acid level was within normal limits. AST 42; albumin 3.1, otherwise liver function tests within normal limits. BNP 3021. Troponin was up at 0.042. Urinalysis, large leukocyte esterase, 80 white cells per high power field. Urine drug screen was negative, presumptive. Blood cultures no growth to date. Most recent chest x-ray, the report I am unable to pull up the film shows ET tube in good position. I did review the CTA of the chest earlier and he appears to have ground glass opacifications in both lung monroe. He has left lower lobe atelectasis. He has some basilar areas of bilateral infiltrate. Without overt air bronchograms. There is some eventration/elevation of the left hemidiaphragm. Not the best contrast face timing; however, no obvious filling defects consistent with significant pulmonary emboli. No gross pneumothorax, no gross bony ducts, fractures. A CT of the abdomen showed significant colonic dilatation without the cutoff point on the contrast. ASSESSMENT AND PLAN: 1. Acute hypoxemic respiratory failure, on mechanical ventilator support. 2. Bilateral pulmonary infiltrates, pulmonary edema versus pneumonia. 3. Acute encephalopathy, improved. 4. Systemic inflammatory response syndrome. 5. Possible bowel obstruction with dilated colon. 6. Diabetes. 7. History of hypertension. 8. Recent gastrointestinal bleed. 9. Anemia, macrocytic. 10. Likely obstructive sleep apnea. 11. Non-ST elevation myocardial infarction. PLAN: We will continue the spontaneous breathing trial at this point in time. I do feel there is a significant element of pulmonary edema. I will begin empiric diuresis with Lasix with beat to target in negative fluid balance in the next 48-72 hours. I note the elevated cardiac enzymes. A 12-lead EKG will be reviewed and ordered if none has been ordered. Cardiology evaluation will be at the behest of the attending physician and depending on the findings. He will benefit from a 2D echocardiogram at some point either inpatient or outpatient. For now, we will go with the clinical findings and elevated BNP and diurese empirically. We will continue empiric broad-spectrum antibiotic therapy, deescalated based on the results of clinical and microbiologic data. I note the absence of the leukocytosis. I will get a CRP level and if that is within normal limits, I will draw deescalate antibiotics. Continue with mono therapy. I note that he is on vancomycin via the feeding tube and treatment for C. diff colitis. A C. diff stool will be sent for C. diff assay. Consideration will be given for an ID consult. He will be placed on GI prophylaxis, continued on DVT prophylaxis. Flu and pneumonia vaccination will be addressed per protocol. Wound care will be consulted to assist with wound management. Mobility protocol for pressure ulcer prophylaxis will be instituted. Daily sedation assessment trials while he is on mechanical ventilator. Ventilator-associated pneumonia bundle will be addressed daily. Flu and pneumonia vaccination will be addressed per protocol. Thank you very much for the consult, Dr. Amaya. We will follow along and make further recommendations as picture progresses/becomes clearer. He is critically ill on life-sustaining interventions including mechanical ventilator support at high risk for deterioration in the respiratory, cardiac systems and possibly gastritis and intestinal systems. It should mention, a surgical consult was placed, GI consult has also been placed. I will defer to them for management of the GI issues. At this time, I spent about 40-45 minutes of critical care time without overlap and excluding any procedural time that may be necessary. JOB# [id number] ITZEL/CHELITA BERMEO
--- NOTE | 2018-02-28 23:45 | Consultation ---
REASON FOR CONSULTATION: Rule out large bowel obstruction. HISTORY OF PRESENT ILLNESS: The patient is currently intubated and there is no family available for any history. History that is obtained from the nurse as well as the chart. The patient is a diabetic, hypertensive with chronic respiratory failure and also morbid obesity. He was recently admitted and discharged from this institution after suffering from a GI bleed. It seems that the patient was on Xarelto at that time for A-fib and this was discontinued. At this time, the patient is readmitted for a change in sensorium. During the CT scan, it was noted that he had a dilated transverse colon and thus I was called to rule out any large bowel obstruction. PHYSICAL EXAMINATION: GENERAL: At this time again, the patient is morbidly obese. ABDOMEN: The abdomen itself; however, is not distended at this time. Subsequent CT scan done with p.o. contrast reveals the contrast easily flow through the colon into the rectum. LABORATORY DATA: Lab work at present includes a CBC, which shows a white count of 6.7, H and H is 8.2 and 25.2, slightly down from previous H of 8.8 and 29.1, down around 8 hours previously. Electrolytes show very low potassium of 2.6. Calcium is 9.1, magnesium is also low at 1.6. IMPRESSION: At this time is that of a 62-year-old intubated, morbidly obese male, rule out Negin syndrome (pseudoobstruction of the colon). This certainly could be due to electrolyte abnormalities as both hypokalemia as well as hypomagnesemia could be a cause for this and the patient is exhibiting both. Also, I would check any possible psych or pain medications that the patient may be taking, could also be a cause of an [place] syndrome. RECOMMENDATION: At this time would be to place a rectal tube on low intermittent suction and proceed with electrolyte correction. Also, would obtain Gastroenterology evaluation. The patient does not appear to be in need of any general surgical intervention at this time. We will follow as needed. Thank you very much for consultation. JOB# [id number] JAEL/CHELITA
[2018-03-01] MEDS: HumaLOG SUB-Q SCH ×5 (00:16→18:55)
[2018-03-01] MEDS: FLAGYL 500 MG/100 ML 500 MG/100 ML BAG IV SCH ×4 (00:31→22:30)
[2018-03-01] MEDS: MAXIPIME/NS 2 GM/100 ML 2 GM/100 ML BAG IV SCH ×3 (03:45→22:30)
--- NOTE | 2018-03-01 06:58 | XRay Report ---
FINAL REPORT EXAM: XR CHEST 1V AP HISTORY: follow up respiratory failure TECHNIQUE: AP portable view(s) of the chest obtained. PRIORS: 02/27/2018 FINDINGS: Satisfactory appearance of patient's endotracheal and enteric tubes and right upper extremity PICC. Patient is rotated. No mediastinal shift. Cardiac silhouette is unchanged. No pneumothorax. Blunting of the left costophrenic angle and ill-defined left greater than right basilar opacities are similar to slightly improved compared to 02/27/2018. IMPRESSION: Satisfactory appearance of patient's support apparatus without pneumothorax. Aeration of the lower lungs appears slightly improved compared to 02/27/2018.
[2018-03-01] MEDS: DUONEB *Not for PRN Use IH SCH ×3 (08:50→19:58)
[2018-03-01] MEDS: SODIUM CHLORIDE FLUSH SYRINGE 10 ML IV SCH ×2 (10:16→22:31)
[2018-03-01] MEDS: Centrum Liq PO SCH (10:16)
[2018-03-01] MEDS: PREVACID SOLUTAB FEEDTUBE SCH ×2 (10:23→12:26)
[2018-03-01] MEDS: LASIX IV SCH ×2 (11:59→22:30)
--- NOTE | 2018-03-01 12:23 | Progress Note ---
Assessment and Plan Assessment and plan: 1. Acute on chronic respiratory failure on MV on FIO2 30% Pulm managing Nebs treatment PRN 2. CAP Pneumonia On Cefepime daptomycin Nebs treatment PRN Culture pending ID following 3. Urinary tract infection On antibiotic 4. Dilatation of the large intestine, Partial bowel obstruction (per abd x-ray) rectal tube per Surgery Continue metronidazole Monitor output 5. Abnormal cardiac enzymes,( likely due cardiac ischemia vrs A-fib) 6. Hypertension Monitor BP 7. Diabetes Glycemic management Insulin per sliding scale 8. A. fib with hypercoaguable state Continue anticoagulent Control heart rate 9. Lymphedema Dressing to LE Continue Lasix 10. Lower Extremity and sacral wounds Wound consult 11. Morbid obesity Continue Lovenox Continue Pepcid Continue supportive care History Interval history: Pt is intubated and sedated, open eyes to name, no distress Hospitalist Physical - Constitutional Vitals: Temp Pulse Resp BP Pulse Ox 98.0 F 105 H 24 119/89 98 03/01/18 08:00 03/01/18 12:01 03/01/18 12:01 03/01/18 12:01 03/01/18 12:01 General appearance: Present: no acute distress - EENT Eyes: Present: EOM intact ENT: hearing intact - Neck Neck: Present: normal ROM - Respiratory Respiratory effort: normal, other (Ventilator dependent) - Cardiovascular Rhythm: irregularly irregular - Extremities Extremity abnormal: cyanosis (supperficial skin layer, ), ulceration, other ( left foot dark discoloraion due to venous statis) Peripheral Pulses: within normal limits - Abdominal General gastrointestinal: non-tender, distended (large/obese) - Integumentary Integumentary: Present: warm, dry - Psychiatric Psychiatric: other (unable to evaluate) - Neurologic Neurologic: other (unable to evaluate) Results - Labs CBC & Chem 7: 02/28/18 05:50 02/28/18 09:29 Labs: Laboratory Last Values WBC 6.7 K/mm3 (4.5-11.0) 02/28/18 05:50 RBC 2.85 M/mm3 (3.65-5.03) L 02/28/18 05:50 Hgb 8.2 gm/dl (11.8-15.2) L 02/28/18 05:50 Hct 25.2 % (35.5-45.6) L 02/28/18 05:50 MCV 89 fl (84-94) 02/28/18 05:50 MCH 29 pg (28-32) 02/28/18 05:50 MCHC 33 % (32-34) 02/28/18 05:50 RDW 17.8 % (13.2-15.2) H 02/28/18 05:50 Plt Count 380 K/mm3 (140-440) 02/28/18 05:50 Lymph % (Auto) 9.2 % (13.4-35.0) L 02/27/18 20:11 [place] % (Auto) 12.3 % (0.0-7.3) H 02/27/18 20:11 Eos % (Auto) 0.1 % (0.0-4.3) 02/27/18 20:11 Baso % (Auto) 0.3 % (0.0-1.8) 02/27/18 20:11 Lymph # 0.8 K/mm3 (1.2-5.4) L 02/27/18 20:11 [place] # 1.0 K/mm3 (0.0-0.8) H 02/27/18 20:11 Eos # 0.0 K/mm3 (0.0-0.4) 02/27/18 20:11 Baso # 0.0 K/mm3 (0.0-0.1) 02/27/18 20:11 Add Manual Diff Complete 02/28/18 05:50 Total Counted 100 02/28/18 05:50 Seg Neutrophils % Intake Specialist 02/28/18 05:50 Seg Neuts % (Manual) 77.0 % (40.0-70.0) H 02/28/18 05:50 Band Neutrophils % 16.0 % 02/28/18 05:50 Lymphocytes % (Manual) 6.0 % (13.4-35.0) L 02/28/18 05:50 Reactive Lymphs % (Man) 0 % 02/28/18 05:50 Monocytes % (Manual) 1.0 % (0.0-7.3) 02/28/18 05:50 Eosinophils % (Manual) 0 % (0.0-4.3) 02/28/18 05:50 Basophils % (Manual) 0 % (0.0-1.8) 02/28/18 05:50 Metamyelocytes % 0 % 02/28/18 05:50 Myelocytes % 0 % 02/28/18 05:50 Promyelocytes % 0 % 02/28/18 05:50 Blast Cells % 0 % 02/28/18 05:50 Nucleated RBC % Not Reportable 02/28/18 05:50 Seg Neutrophils # 6.5 K/mm3 (1.8-7.7) 02/27/18 20:11 Seg Neutrophils # Man 5.2 K/mm3 (1.8-7.7) 02/28/18 05:50 Band Neutrophils # 1.1 K/mm3 02/28/18 05:50 Lymphocytes # (Manual) 0.4 K/mm3 (1.2-5.4) L 02/28/18 05:50 Abs React Lymphs (Man) 0.0 K/mm3 02/28/18 05:50 Monocytes # (Manual) 0.1 K/mm3 (0.0-0.8) 02/28/18 05:50 Eosinophils # (Manual) 0.0 K/mm3 (0.0-0.4) 02/28/18 05:50 Basophils # (Manual) 0.0 K/mm3 (0.0-0.1) 02/28/18 05:50 Metamyelocytes # 0.0 K/mm3 02/28/18 05:50 Myelocytes # 0.0 K/mm3 02/28/18 05:50 Promyelocytes # 0.0 K/mm3 02/28/18 05:50 Blast Cells # 0.0 K/mm3 02/28/18 05:50 WBC Morphology Not Reportable 02/28/18 05:50 Hypersegmented Neuts Not Reportable 02/28/18 05:50 Hyposegmented Neuts Not Reportable 02/28/18 05:50 Hypogranular Neuts Not Reportable 02/28/18 05:50 Smudge Cells Not Reportable 02/28/18 05:50 Toxic Granulation Not Reportable 02/28/18 05:50 Toxic Vacuolation Not Reportable 02/28/18 05:50 Dohle Bodies Not Reportable 02/28/18 05:50 Pelger-Huet Anomaly Not Reportable 02/28/18 05:50 Mikey Rods Not Reportable 02/28/18 05:50 Platelet Estimate Appears normal 02/28/18 05:50 Clumped Platelets Not Reportable 02/28/18 05:50 Plt Clumps, EDTA Not Reportable 02/28/18 05:50 Large Platelets Not Reportable 02/28/18 05:50 Giant Platelets Not Reportable 02/28/18 05:50 Platelet Satelliting Not Reportable 02/28/18 05:50 Plt Morphology Comment Not Reportable 02/28/18 05:50 RBC Morphology Not Reportable 02/28/18 05:50 Dimorphic RBCs Not Reportable 02/28/18 05:50 Polychromasia Few 02/28/18 05:50 Hypochromasia 1+ 02/28/18 05:50 Poikilocytosis Not Reportable 02/28/18 05:50 Anisocytosis 1+ 02/28/18 05:50 Microcytosis Not Reportable 02/28/18 05:50 Macrocytosis Not Reportable 02/28/18 05:50 Spherocytes Few 02/28/18 05:50 Pappenheimer Bodies Not Reportable 02/28/18 05:50 Sickle Cells Not Reportable 02/28/18 05:50 Target Cells Not Reportable 02/28/18 05:50 Tear Drop Cells Not Reportable 02/28/18 05:50 Ovalocytes Few 02/28/18 05:50 Helmet Cells Not Reportable 02/28/18 05:50 Lucero-Mallow Bodies Not Reportable 02/28/18 05:50 Elmer Rings Not Reportable 02/28/18 05:50 Chelsey Cells Not Reportable 02/28/18 05:50 Bite Cells Not Reportable 02/28/18 05:50 Crenated Cell Not Reportable 02/28/18 05:50 Elliptocytes Not Reportable 02/28/18 05:50 Acanthocytes (Spur) Not Reportable 02/28/18 05:50 Rouleaux Not Reportable 02/28/18 05:50 Hemoglobin C Crystals Not Reportable 02/28/18 05:50 Schistocytes Not Reportable 02/28/18 05:50 Malaria parasites Not Reportable 02/28/18 05:50 David Bodies Not Reportable 02/28/18 05:50 Hem Pathologist Commnt No 02/28/18 05:50 D-Dimer 1135.90 ng/mlDDU (0-234) H 02/27/18 20:11 POC ABG pH 7.510 (7.35-7.45) H 02/28/18 10:53 POC ABG pCO2 48.8 (35-45) H 02/28/18 10:53 POC ABG pO2 70 (80-105) L 02/28/18 10:53 POC ABG HCO3 38.9 02/28/18 10:53 POC ABG Total CO2 40 02/28/18 10:53 POC ABG O2 Sat 95 02/28/18 10:53 POC ABG Base Excess 16 02/28/18 10:53 FiO2 45 % 02/28/18 10:53 Sodium 140 mmol/L (137-145) 02/28/18 07:22 Potassium 3.2 mmol/L (3.6-5.0) L D 02/28/18 09:29 Chloride 97.3 mmol/L (98-107) L 02/28/18 07:22 Carbon Dioxide 32 mmol/L (22-30) H 02/28/18 07:22 Anion Gap 13 mmol/L 02/28/18 07:22 BUN 12 mg/dL (9-20) 02/28/18 07:22 Creatinine 1.0 mg/dL (0.8-1.5) 02/28/18 07:22 Estimated GFR > 60 ml/min 02/28/18 07:22 BUN/Creatinine Ratio 12 % 02/28/18 07:22 Glucose 111 mg/dL (75-100) H 02/28/18 07:22 POC Glucose 113 (70-105) H 03/01/18 11:39 Lactic Acid 1.70 mmol/L (0.7-2.0) 02/27/18 21:16 Calcium 9.1 mg/dL (8.4-10.2) 02/28/18 07:22 Magnesium 1.60 mg/dL (1.7-2.3) L 02/28/18 09:29 Total Bilirubin 0.30 mg/dL (0.1-1.2) 02/27/18 20:11 AST 42 units/L (5-40) H 02/27/18 20:11 ALT 21 units/L (7-56) 02/27/18 20:11 Alkaline Phosphatase 93 units/L (35-129) 02/27/18 20:11 Total Creatine Kinase 47 units/L (55-170) L 02/28/18 07:27 CK-MB (CK-2) 1.1 ng/mL (0.0-4.0) 02/28/18 07:27 CK-MB (CK-2) Rel Index 2.3 (0-4) 02/28/18 07:27 Troponin T 0.063 ng/mL (0.00-0.029) H D 02/28/18 07:27 C-Reactive Protein 5.30 mg/dL (0.00-1.30) H 02/28/18 09:29 NT-Pro-B Natriuret Pep 3021 pg/mL (0-900) H 02/27/18 21:28 Total Protein 7.8 g/dL (6.3-8.2) 02/27/18 20:11 Albumin 3.1 g/dL (3.9-5) L 02/27/18 20:11 Albumin/Globulin Ratio 0.7 % 02/27/18 20:11 Triglycerides 92 mg/dL (2-149) 02/27/18 20:11 Cholesterol 128 mg/dL (50-199) 02/27/18 20:11 LDL Cholesterol Direct 71 mg/dL (50-130) 02/27/18 20:11 HDL Cholesterol 52 mg/dL (40-59) 02/27/18 20:11 Cholesterol/HDL Ratio 2.46 % 02/27/18 20:11 Urine Color Anitra (Yellow) 02/28/18 02:03 Urine Turbidity Cloudy (Clear) 02/28/18 02:03 Urine pH 5.0 (5.0-7.0) 02/28/18 02:03 Ur Specific Julian 1.029 (1.003-1.030) 02/28/18 02:03 Urine Protein 100 mg/dl mg/dL (Negative) 02/28/18 02:03 Urine Glucose (UA) Neg mg/dL (Negative) 02/28/18 02:03 Urine Ketones Neg mg/dL (Negative) 02/28/18 02:03 Urine Blood Neg (Negative) 02/28/18 02:03 Urine Nitrite Neg (Negative) 02/28/18 02:03 Urine Bilirubin Neg (Negative) 02/28/18 02:03 Urine Urobilinogen 2.0 mg/dL (<2.0) 02/28/18 02:03 Ur Leukocyte Esterase Lg (Negative) 02/28/18 02:03 Urine WBC (Auto) 80.0 /HPF (0.0-6.0) H 02/28/18 02:03 Urine RBC (Auto) 4.0 /HPF (0.0-6.0) 02/28/18 02:03 U Epithel Cells (Auto) 4.0 /HPF (0-13.0) 02/28/18 02:03 Urine Bacteria (Auto) 2+ /HPF (Negative) 02/28/18 02:03 Urine WBC Clumps 3+ /HPF 02/28/18 02:03 Hyaline Casts 98 /LPF 02/28/18 02:03 Urine Mucus 2+ /HPF 02/28/18 02:03 Urine Opiates Screen Presumptive negative 02/28/18 02:03 Urine Methadone Screen Presumptive negative 02/28/18 02:03 Ur Barbiturates Screen Presumptive negative 02/28/18 02:03 Ur Phencyclidine Scrn Presumptive negative 02/28/18 02:03 Ur Amphetamines Screen Presumptive negative 02/28/18 02:03 U Benzodiazepines Scrn Presumptive negative 02/28/18 02:03 Urine Cocaine Screen Presumptive negative 02/28/18 02:03 U Marijuana (THC) Screen Presumptive negative 02/28/18 02:03 Drugs of Abuse Note Disclamer 02/28/18 02:03
--- NOTE | 2018-03-01 14:15 | Progress Note ---
Assessment and Plan Acute hypoxemic respiratory failure, on mechanical ventilator support. Bilateral pulmonary infiltrates, pulmonary edema versus pneumonia. Acute encephalopathy, improved. Systemic inflammatory response syndrome. Possible bowel obstruction with dilated colon. Diabetes. History of hypertension. Recent gastrointestinal bleed. Anemia, macrocytic. Likely obstructive sleep apnea. Non-ST elevation myocardial infarction. - begin SBT (Extubate if passes) - daily SAT's - continue bronchodilators with pulmonary hygiene per RT - keep Peep at 8 during wean for continued alveolar recruitment re: obesity - continue supplemental oxygen to keep sats > 90% - VAP bundle addressed - continue ABs for HCAP and per ID recs - continue mobility protocol for pressure ulcer prophylaxis - PT/OT - continue wound care per WCT - continue GI & DVT prophylaxis - enteral nutrition as tolerated - continue glycemic control with SSI - prn KUB's re: colonic dilatation and passive decompression with rectal tube ( seen by surgeon and no intervention planned otherwise) - cardiology evaluation per attending - continue other care per attending / other consultants The high probability of a clinically significant, sudden or life-threatening deterioration of the respiratory, GI ] system(s) required my full and direct attention, intervention and personal management. The aggregate critical care time was [38] minutes without overlap. Time includes spent on; [x] Data Review and interpretation [x] Patient assessment and monitoring of vital signs [x] Documentation [x] Medication orders and management Subjective Date of service: 03/01/18 Principal diagnosis: Acute hypoxemic respiratory failure; Bilateral pulmonary infiltrates; Acut Interval history: Patient is seen today for: Acute hypoxemic respiratory failure; Bilateral pulmonary infiltrates; Acute encephalopathy; SIRS Seen and examined at bedside; 24hour events reviewed; nursing and respiratory care staff consulted; no adverse overnight events reported to me; resting in bed ; denies N/V/F/C; brothers and sisters visiting; tolerated bedside SBT well; hungry; denies acute chest pains or palpitations Objective Vital Signs - 12hr 03/01/18 03/01/18 03/01/18 02:11 02:21 02:31 Temperature Pulse Rate 97 H 99 H 115 H Pulse Rate [ Anterior Bilateral Throughout] Pulse Rate [ From Monitor] Respiratory 24 24 23 Rate Respiratory Rate [Anterior Bilateral Throughout] Respiratory Rate [ Generalized] Respiratory Rate [sacral area] Blood Pressure 124/71 124/71 124/71 O2 Sat by Pulse 97 97 99 Oximetry 03/01/18 03/01/18 03/01/18 02:35 02:41 02:51 Temperature Pulse Rate 120 H 120 H 99 H Pulse Rate [ Anterior Bilateral Throughout] Pulse Rate [ From Monitor] Respiratory 24 17 24 Rate Respiratory Rate [Anterior Bilateral Throughout] Respiratory Rate [ Generalized] Respiratory Rate [sacral area] Blood Pressure 124/71 124/71 O2 Sat by Pulse 100 100 100 Oximetry 03/01/18 03/01/18 03/01/18 03:00 03:11 03:21 Temperature Pulse Rate 113 H 102 H 99 H Pulse Rate [ Anterior Bilateral Throughout] Pulse Rate [ From Monitor] Respiratory 23 21 24 Rate Respiratory Rate [Anterior Bilateral Throughout] Respiratory Rate [ Generalized] Respiratory Rate [sacral area] Blood Pressure 134/79 124/71 124/71 O2 Sat by Pulse 99 100 99 Oximetry 03/01/18 03/01/18 03/01/18 03:31 03:41 03:45 Temperature Pulse Rate 96 H 99 H 103 H Pulse Rate [ Anterior Bilateral Throughout] Pulse Rate [ From Monitor] Respiratory 24 24 24 Rate Respiratory Rate [Anterior Bilateral Throughout] Respiratory Rate [ Generalized] Respiratory Rate [sacral area] Blood Pressure 124/71 124/71 O2 Sat by Pulse 99 100 100 Oximetry 03/01/18 03/01/18 03/01/18 03:51 04:00 04:11 Temperature Pulse Rate 89 91 H 100 H Pulse Rate [ Anterior Bilateral Throughout] Pulse Rate [ From Monitor] Respiratory 24 24 24 Rate Respiratory Rate [Anterior Bilateral Throughout] Respiratory Rate [ Generalized] Respiratory Rate [sacral area] Blood Pressure 124/71 125/83 125/83 O2 Sat by Pulse 100 98 99 Oximetry 03/01/18 03/01/18 03/01/18 04:21 04:25 04:31 Temperature Pulse Rate 100 H 95 H Pulse Rate [ Anterior Bilateral Throughout] Pulse Rate [ From Monitor] Respiratory 24 24 24 Rate Respiratory Rate [Anterior Bilateral Throughout] Respiratory Rate [ Generalized] Respiratory Rate [sacral area] Blood Pressure 125/83 125/83 O2 Sat by Pulse 99 100 99 Oximetry 03/01/18 03/01/18 03/01/18 04:41 04:51 05:00 Temperature Pulse Rate 98 H 102 H 101 H Pulse Rate [ Anterior Bilateral Throughout] Pulse Rate [ From Monitor] Respiratory 24 24 24 Rate Respiratory Rate [Anterior Bilateral Throughout] Respiratory Rate [ Generalized] Respiratory Rate [sacral area] Blood Pressure 125/83 125/83 121/79 O2 Sat by Pulse 98 98 99 Oximetry 03/01/18 03/01/18 03/01/18 05:11 05:21 05:31 Temperature Pulse Rate 95 H 99 H 106 H Pulse Rate [ Anterior Bilateral Throughout] Pulse Rate [ From Monitor] Respiratory 24 25 H 24 Rate Respiratory Rate [Anterior Bilateral Throughout] Respiratory Rate [ Generalized] Respiratory Rate [sacral area] Blood Pressure 125/83 125/83 125/83 O2 Sat by Pulse 100 99 98 Oximetry 03/01/18 03/01/18 03/01/18 05:41 05:51 06:00 Temperature Pulse Rate 107 H 96 H 92 H Pulse Rate [ Anterior Bilateral Throughout] Pulse Rate [ From Monitor] Respiratory 24 24 24 Rate Respiratory Rate [Anterior Bilateral Throughout] Respiratory Rate [ Generalized] Respiratory Rate [sacral area] Blood Pressure 125/83 125/83 130/75 O2 Sat by Pulse 99 98 98 Oximetry 03/01/18 03/01/18 03/01/18 06:11 06:21 06:29 Temperature Pulse Rate 91 H 92 H Pulse Rate [ Anterior Bilateral Throughout] Pulse Rate [ From Monitor] Respiratory 24 24 24 Rate Respiratory Rate [Anterior Bilateral Throughout] Respiratory Rate [ Generalized] Respiratory Rate [sacral area] Blood Pressure 130/75 130/75 O2 Sat by Pulse 98 99 100 Oximetry 03/01/18 03/01/18 03/01/18 06:31 06:41 06:51 Temperature Pulse Rate 94 H 99 H 103 H Pulse Rate [ Anterior Bilateral Throughout] Pulse Rate [ From Monitor] Respiratory 24 24 24 Rate Respiratory Rate [Anterior Bilateral Throughout] Respiratory Rate [ Generalized] Respiratory Rate [sacral area] Blood Pressure 130/75 130/75 130/75 O2 Sat by Pulse 99 99 98 Oximetry 03/01/18 03/01/18 03/01/18 07:00 07:11 07:21 Temperature Pulse Rate 93 H 99 H 108 H Pulse Rate [ Anterior Bilateral Throughout] Pulse Rate [ From Monitor] Respiratory 24 24 24 Rate Respiratory Rate [Anterior Bilateral Throughout] Respiratory Rate [ Generalized] Respiratory Rate [sacral area] Blood Pressure 120/76 130/75 130/75 O2 Sat by Pulse 99 98 97 Oximetry 03/01/18 03/01/18 03/01/18 07:31 07:41 07:51 Temperature Pulse Rate 108 H 108 H 103 H Pulse Rate [ Anterior Bilateral Throughout] Pulse Rate [ From Monitor] Respiratory 24 24 24 Rate Respiratory Rate [Anterior Bilateral Throughout] Respiratory Rate [ Generalized] Respiratory Rate [sacral area] Blood Pressure 130/75 130/75 130/75 O2 Sat by Pulse 98 99 98 Oximetry 03/01/18 03/01/18 03/01/18 08:00 08:11 08:21 Temperature 98.0 F Pulse Rate 93 H 101 H 106 H Pulse Rate [ Anterior Bilateral Throughout] Pulse Rate [ 92 H From Monitor] Respiratory 25 H 24 24 Rate Respiratory Rate [Anterior Bilateral Throughout] Respiratory Rate [ Generalized] Respiratory Rate [sacral area] Blood Pressure 125/78 125/78 125/78 O2 Sat by Pulse 98 99 99 Oximetry 03/01/18 03/01/18 03/01/18 08:31 08:41 08:48 Temperature Pulse Rate 100 H 108 H Pulse Rate [ 109 H Anterior Bilateral Throughout] Pulse Rate [ From Monitor] Respiratory 21 26 H Rate Respiratory 24 Rate [Anterior Bilateral Throughout] Respiratory Rate [ Generalized] Respiratory Rate [sacral area] Blood Pressure 125/78 125/78 O2 Sat by Pulse 99 98 Oximetry 03/01/18 03/01/18 03/01/18 08:51 09:00 09:11 Temperature Pulse Rate 109 H 103 H 122 H Pulse Rate [ Anterior Bilateral Throughout] Pulse Rate [ From Monitor] Respiratory 24 23 25 H Rate Respiratory Rate [Anterior Bilateral Throughout] Respiratory Rate [ Generalized] Respiratory Rate [sacral area] Blood Pressure 125/78 138/82 138/82 O2 Sat by Pulse 99 95 98 Oximetry 03/01/18 03/01/18 03/01/18 09:13 09:21 09:31 Temperature Pulse Rate 101 H 104 H Pulse Rate [ 101 H Anterior Bilateral Throughout] Pulse Rate [ From Monitor] Respiratory 24 25 H Rate Respiratory 24 Rate [Anterior Bilateral Throughout] Respiratory Rate [ Generalized] Respiratory Rate [sacral area] Blood Pressure 138/82 138/82 O2 Sat by Pulse 98 98 Oximetry 03/01/18 03/01/18 03/01/18 09:41 09:51 10:00 Temperature Pulse Rate 93 H 107 H 112 H Pulse Rate [ Anterior Bilateral Throughout] Pulse Rate [ 104 H From Monitor] Respiratory 21 24 24 Rate Respiratory Rate [Anterior Bilateral Throughout] Respiratory 24 Rate [ Generalized] Respiratory 24 Rate [sacral area] Blood Pressure 138/82 138/82 113/80 O2 Sat by Pulse 99 99 98 Oximetry 03/01/18 03/01/18 03/01/18 10:11 10:21 10:31 Temperature Pulse Rate 100 H 104 H 100 H Pulse Rate [ Anterior Bilateral Throughout] Pulse Rate [ From Monitor] Respiratory 24 24 24 Rate Respiratory Rate [Anterior Bilateral Throughout] Respiratory Rate [ Generalized] Respiratory Rate [sacral area] Blood Pressure 113/80 113/80 113/80 O2 Sat by Pulse 98 99 99 Oximetry 03/01/18 03/01/18 03/01/18 10:41 10:51 11:00 Temperature Pulse Rate 94 H 104 H 96 H Pulse Rate [ Anterior Bilateral Throughout] Pulse Rate [ From Monitor] Respiratory 24 24 24 Rate Respiratory Rate [Anterior Bilateral Throughout] Respiratory Rate [ Generalized] Respiratory Rate [sacral area] Blood Pressure 113/80 113/80 106/88 O2 Sat by Pulse 99 99 99 Oximetry 03/01/18 03/01/18 03/01/18 11:11 11:21 11:31 Temperature Pulse Rate 101 H 105 H 104 H Pulse Rate [ Anterior Bilateral Throughout] Pulse Rate [ From Monitor] Respiratory 24 24 15 Rate Respiratory Rate [Anterior Bilateral Throughout] Respiratory Rate [ Generalized] Respiratory Rate [sacral area] Blood Pressure 106/88 106/88 106/88 O2 Sat by Pulse 99 98 100 Oximetry 03/01/18 03/01/18 03/01/18 11:41 11:51 12:00 Temperature 99.1 F Pulse Rate 99 H 105 H Pulse Rate [ Anterior Bilateral Throughout] Pulse Rate [ From Monitor] Respiratory 24 23 Rate Respiratory Rate [Anterior Bilateral Throughout] Respiratory Rate [ Generalized] Respiratory Rate [sacral area] Blood Pressure 106/88 106/88 O2 Sat by Pulse 99 99 Oximetry 03/01/18 03/01/18 12:01 12:33 Temperature Pulse Rate 105 H 105 H Pulse Rate [ Anterior Bilateral Throughout] Pulse Rate [ From Monitor] Respiratory 24 Rate Respiratory Rate [Anterior Bilateral Throughout] Respiratory Rate [ Generalized] Respiratory Rate [sacral area] Blood Pressure 119/89 O2 Sat by Pulse 98 98 Oximetry Constitutional: no acute distress, alert, other (Morbidly obese AAM, normocephalic and atraumatic) Eyes: non-icteric ENT: oropharynx moist, other (ETT 23 cm CHELSY) Neck: supple, no lymphadenopathy, no JVD, other (No thyromegaly) Effort: mildly labored Ascultation: Bilateral: diminished breath sounds, rhonchi (scant) Percussion: Bilateral: not dull Cardiovascular: regular rate and rhythm, other (No R/M) Gastrointestinal: normoactive bowel sounds, soft, non-tender, non-distended, other (No palpable HSM) Integumentary: cellulitis, decubitus ulcer Extremities: no cyanosis, pulses normal, edema, other (wound to right dunn) Neurologic: normal mental status, non-focal exam, pupils equal and round, CN II- XII normal Psychiatric: mood appropriate, affect normal CBC and BMP: 02/28/18 05:50 02/28/18 09:29 ABG, PT/INR, D-dimer: ABG POC ABG pH 7.510 (7.35-7.45) H 02/28/18 10:53 POC ABG pCO2 48.8 (35-45) H 02/28/18 10:53 POC ABG pO2 70 (80-105) L 02/28/18 10:53 POC ABG HCO3 38.9 02/28/18 10:53 POC ABG Total CO2 40 02/28/18 10:53 POC ABG O2 Sat 95 02/28/18 10:53 PT/INR, D-dimer D-Dimer 1135.90 ng/mlDDU (0-234) H 02/27/18 20:11 Abnormal lab findings: Abnormal Labs 02/27/18 02/27/18 02/27/18 20:11 20:11 20:11 RBC 3.06 L Hgb 8.8 L Hct 29.1 L MCV 95 H MCHC 30 L RDW 18.0 H Lymph % (Auto) 9.2 L [place] % (Auto) 12.3 H Lymph # 0.8 L [place] # 1.0 H Seg Neutrophils % 78.1 H Seg Neuts % (Manual) Lymphocytes % (Manual) Lymphocytes # (Manual) D-Dimer 1135.90 H POC ABG pH POC ABG pCO2 POC ABG pO2 Potassium Chloride 93.7 L Carbon Dioxide Glucose POC Glucose Lactic Acid Magnesium AST 42 H Total Creatine Kinase 51 L Troponin T 0.046 H C-Reactive Protein NT-Pro-B Natriuret Pep Albumin 3.1 L Urine WBC (Auto) 02/27/18 02/27/18 02/27/18 20:11 20:25 21:28 RBC Hgb Hct MCV MCHC RDW Lymph % (Auto) R[place]els % (Auto) Lymph # R[place] # Seg Neutrophils % Seg Neuts % (Manual) Lymphocytes % (Manual) Lymphocytes # (Manual) D-Dimer POC ABG pH POC ABG pCO2 60.6 H POC ABG pO2 269 H Potassium Chloride Carbon Dioxide Glucose POC Glucose Lactic Acid 3.50 H* Magnesium AST Total Creatine Kinase Troponin T C-Reactive Protein NT-Pro-B Natriuret Pep 3021 H Albumin Urine WBC (Auto) 02/27/18 02/28/18 02/28/18 23:59 01:46 02:03 RBC Hgb Hct MCV MCHC RDW Lymph % (Auto) R[place] % (Auto) Lymph # [place] # Seg Neutrophils % Seg Neuts % (Manual) Lymphocytes % (Manual) Lymphocytes # (Manual) D-Dimer POC ABG pH POC ABG pCO2 POC ABG pO2 Potassium Chloride Carbon Dioxide Glucose POC Glucose Lactic Acid Magnesium AST Total Creatine Kinase 34 L 41 L Troponin T 0.042 H 0.046 H C-Reactive Protein NT-Pro-B Natriuret Pep Albumin Urine WBC (Auto) 80.0 H 02/28/18 02/28/18 02/28/18 05:50 07:22 07:27 RBC 2.85 L Hgb 8.2 L Hct 25.2 L MCV MCHC RDW 17.8 H Lymph % (Auto) R[place] % (Auto) Lymph # [place] # Seg Neutrophils % Seg Neuts % (Manual) 77.0 H Lymphocytes % (Manual) 6.0 L Lymphocytes # (Manual) 0.4 L D-Dimer POC ABG pH POC ABG pCO2 POC ABG pO2 Potassium 2.6 L* D Chloride 97.3 L Carbon Dioxide 32 H Glucose 111 H POC Glucose Lactic Acid Magnesium AST Total Creatine Kinase 47 L Troponin T 0.063 H D C-Reactive Protein NT-Pro-B Natriuret Pep Albumin Urine WBC (Auto) 02/28/18 02/28/18 02/28/18 09:29 09:29 10:53 RBC Hgb Hct MCV MCHC RDW Lymph % (Auto) [place] % (Auto) Lymph # [place] # Seg Neutrophils % Seg Neuts % (Manual) Lymphocytes % (Manual) Lymphocytes # (Manual) D-Dimer POC ABG pH 7.510 H POC ABG pCO2 48.8 H POC ABG pO2 70 L Potassium 3.2 L D Chloride Carbon Dioxide Glucose POC Glucose Lactic Acid Magnesium 1.60 L AST Total Creatine Kinase Troponin T C-Reactive Protein 5.30 H NT-Pro-B Natriuret Pep Albumin Urine WBC (Auto) 02/28/18 02/28/18 03/01/18 13:20 18:44 00:16 RBC Hgb Hct MCV MCHC RDW Lymph % (Auto) [place] % (Auto) Lymph # [place] # Seg Neutrophils % Seg Neuts % (Manual) Lymphocytes % (Manual) Lymphocytes # (Manual) D-Dimer POC ABG pH POC ABG pCO2 POC ABG pO2 Potassium Chloride Carbon Dioxide Glucose POC Glucose 128 H 132 H 110 H Lactic Acid Magnesium AST Total Creatine Kinase Troponin T C-Reactive Protein NT-Pro-B Natriuret Pep Albumin Urine WBC (Auto) 03/01/18 03/01/18 05:28 11:39 RBC Hgb Hct MCV MCHC RDW Lymph % (Auto) [place] % (Auto) Lymph # [place] # Seg Neutrophils % Seg Neuts % (Manual) Lymphocytes % (Manual) Lymphocytes # (Manual) D-Dimer POC ABG pH POC ABG pCO2 POC ABG pO2 Potassium Chloride Carbon Dioxide Glucose POC Glucose 117 H 113 H Lactic Acid Magnesium AST Total Creatine Kinase Troponin T C-Reactive Protein NT-Pro-B Natriuret Pep Albumin Urine WBC (Auto) Chest x-ray: image reviewed (improved bibasilar infiltartes / atelectasis; ETT in good position) Allied health notes reviewed: nursing
[2018-03-01] MEDS: NACL 0.9% IV SCH (14:30)
[2018-03-01] MEDS: CUBICIN IV SCH (14:30)
[2018-03-01] MEDS: SENOKOT S PO SCH (22:29)
[2018-03-01] MEDS: LOVENOX SUB-Q SCH (22:30)
[2018-03-02] MEDS: HumaLOG SUB-Q SCH ×3 (00:43→11:58)
[2018-03-02] MEDS: MAXIPIME/NS 2 GM/100 ML 2 GM/100 ML BAG IV SCH ×3 (06:08→23:10)
[2018-03-02] MEDS: FLAGYL 500 MG/100 ML 500 MG/100 ML BAG IV SCH ×3 (06:09→23:56)
--- NOTE | 2018-03-02 06:56 | Progress Note ---
Assessment and Plan Acute hypoxemic respiratory failure, on mechanical ventilator support. Bilateral pulmonary infiltrates, pulmonary edema versus pneumonia. Acute encephalopathy, improved. Systemic inflammatory response syndrome. Possible bowel obstruction with dilated colon. Diabetes. History of hypertension. Recent gastrointestinal bleed. Anemia, macrocytic. Likely obstructive sleep apnea. Non-ST elevation myocardial infarction. - begin SBT - daily SAT's - continue bronchodilators with pulmonary hygiene per RT - keep Peep at 8 during wean for continued alveolar recruitment re: obesity - continue supplemental oxygen to keep sats > 90% - VAP bundle addressed - continue ABs for HCAP and per ID recs - continue mobility protocol for pressure ulcer prophylaxis - PT/OT - continue wound care per WCT - continue GI & DVT prophylaxis - enteral nutrition as tolerated - continue glycemic control with SSI - prn KUB's re: colonic dilatation and passive decompression with rectal tube ( seen by surgeon and no intervention planned otherwise) - cardiology evaluation per attending - continue other care per attending / other consultants The high probability of a clinically significant, sudden or life-threatening deterioration of the respiratory, GI ] system(s) required my full and direct attention, intervention and personal management. The aggregate critical care time was [38] minutes without overlap. Time includes spent on; [x] Data Review and interpretation [x] Patient assessment and monitoring of vital signs [x] Documentation [x] Medication orders and management Subjective Date of service: 03/02/18 Principal diagnosis: Acute hypoxemic respiratory failure; Bilateral pulmonary infiltrates; Acut Objective Vital Signs - 12hr 03/01/18 03/01/18 03/01/18 19:00 19:11 19:21 Temperature Pulse Rate 94 H 91 H 93 H Pulse Rate [ Anterior Bilateral Throughout] Respiratory 23 20 16 Rate Respiratory Rate [Anterior Bilateral Throughout] Blood Pressure 126/93 126/93 126/93 O2 Sat by Pulse 93 93 91 Oximetry 03/01/18 03/01/18 03/01/18 19:31 19:58 20:00 Temperature 98.8 F Pulse Rate 96 H 92 H Pulse Rate [ 90 Anterior Bilateral Throughout] Respiratory 22 18 Rate Respiratory 18 Rate [Anterior Bilateral Throughout] Blood Pressure 126/93 126/93 O2 Sat by Pulse 98 100 99 Oximetry 03/01/18 03/01/18 03/01/18 20:08 21:00 21:46 Temperature Pulse Rate 104 H 98 H Pulse Rate [ 96 H Anterior Bilateral Throughout] Respiratory 18 19 Rate Respiratory 18 Rate [Anterior Bilateral Throughout] Blood Pressure 133/74 133/74 O2 Sat by Pulse 95 93 Oximetry 03/01/18 03/01/18 03/01/18 22:00 22:14 23:00 Temperature Pulse Rate 107 H 103 H 95 H Pulse Rate [ Anterior Bilateral Throughout] Respiratory 20 22 20 Rate Respiratory Rate [Anterior Bilateral Throughout] Blood Pressure 127/82 133/74 143/83 O2 Sat by Pulse 94 94 Oximetry 03/01/18 03/02/18 03/02/18 23:54 00:00 01:00 Temperature 99.0 F Pulse Rate 102 H 95 H 94 H Pulse Rate [ Anterior Bilateral Throughout] Respiratory 25 H 23 21 Rate Respiratory Rate [Anterior Bilateral Throughout] Blood Pressure 143/83 131/88 133/81 O2 Sat by Pulse 96 95 96 Oximetry 03/02/18 03/02/18 03/02/18 02:00 03:00 03:36 Temperature Pulse Rate 98 H 87 87 Pulse Rate [ Anterior Bilateral Throughout] Respiratory 19 20 24 Rate Respiratory Rate [Anterior Bilateral Throughout] Blood Pressure 135/80 127/80 127/80 O2 Sat by Pulse 96 97 100 Oximetry 03/02/18 03/02/18 03/02/18 04:00 04:01 05:00 Temperature 98.9 F Pulse Rate 88 95 H Pulse Rate [ Anterior Bilateral Throughout] Respiratory 20 23 Rate Respiratory Rate [Anterior Bilateral Throughout] Blood Pressure 146/94 126/87 O2 Sat by Pulse 96 97 96 Oximetry 03/02/18 06:00 Temperature Pulse Rate 85 Pulse Rate [ Anterior Bilateral Throughout] Respiratory 18 Rate Respiratory Rate [Anterior Bilateral Throughout] Blood Pressure 126/81 O2 Sat by Pulse 95 Oximetry Constitutional: no acute distress, alert, other (Morbidly obese AAM, normocephalic and atraumatic) Eyes: non-icteric ENT: oropharynx moist, other (ETT 23 cm CHELSY) Neck: supple, no lymphadenopathy, no JVD, other (No thyromegaly) Effort: mildly labored Ascultation: Bilateral: diminished breath sounds, rhonchi (scant) Percussion: Bilateral: not dull Cardiovascular: regular rate and rhythm, other (No R/M) Gastrointestinal: normoactive bowel sounds, soft, non-tender, non-distended, other (No palpable HSM) Integumentary: cellulitis, decubitus ulcer Extremities: no cyanosis, pulses normal, edema, other (wound to right dunn) Neurologic: normal mental status, non-focal exam, pupils equal and round, CN II- XII normal Psychiatric: mood appropriate, affect normal CBC and BMP: 02/28/18 05:50 02/28/18 09:29 ABG, PT/INR, D-dimer: ABG POC ABG pH 7.507 (7.35-7.45) H 03/01/18 16:04 POC ABG pCO2 45.3 (35-45) H 03/01/18 16:04 POC ABG pO2 91 (80-105) 03/01/18 16:04 POC ABG HCO3 35.9 03/01/18 16:04 POC ABG Total CO2 37 03/01/18 16:04 POC ABG O2 Sat 98 03/01/18 16:04 PT/INR, D-dimer D-Dimer 1135.90 ng/mlDDU (0-234) H 02/27/18 20:11 Abnormal lab findings: Abnormal Labs 02/27/18 02/27/18 02/27/18 20:11 20:11 20:11 RBC 3.06 L Hgb 8.8 L Hct 29.1 L MCV 95 H MCHC 30 L RDW 18.0 H Lymph % (Auto) 9.2 L Simpson % (Auto) 12.3 H Lymph # 0.8 L Simpson # 1.0 H Seg Neutrophils % 78.1 H Seg Neuts % (Manual) Lymphocytes % (Manual) Lymphocytes # (Manual) D-Dimer 1135.90 H POC ABG pH POC ABG pCO2 POC ABG pO2 Potassium Chloride 93.7 L Carbon Dioxide Glucose POC Glucose Lactic Acid Magnesium AST 42 H Total Creatine Kinase 51 L Troponin T 0.046 H C-Reactive Protein NT-Pro-B Natriuret Pep Albumin 3.1 L Urine WBC (Auto) 02/27/18 02/27/18 02/27/18 20:11 20:25 21:28 RBC Hgb Hct MCV MCHC RDW Lymph % (Auto) Simpson % (Auto) Lymph # Simpson # Seg Neutrophils % Seg Neuts % (Manual) Lymphocytes % (Manual) Lymphocytes # (Manual) D-Dimer POC ABG pH POC ABG pCO2 60.6 H POC ABG pO2 269 H Potassium Chloride Carbon Dioxide Glucose POC Glucose Lactic Acid 3.50 H* Magnesium AST Total Creatine Kinase Troponin T C-Reactive Protein NT-Pro-B Natriuret Pep 3021 H Albumin Urine WBC (Auto) 02/27/18 02/28/18 02/28/18 23:59 01:46 02:03 RBC Hgb Hct MCV MCHC RDW Lymph % (Auto) Simpson % (Auto) Lymph # Simpson # Seg Neutrophils % Seg Neuts % (Manual) Lymphocytes % (Manual) Lymphocytes # (Manual) D-Dimer POC ABG pH POC ABG pCO2 POC ABG pO2 Potassium Chloride Carbon Dioxide Glucose POC Glucose Lactic Acid Magnesium AST Total Creatine Kinase 34 L 41 L Troponin T 0.042 H 0.046 H C-Reactive Protein NT-Pro-B Natriuret Pep Albumin Urine WBC (Auto) 80.0 H 02/28/18 02/28/18 02/28/18 05:50 07:22 07:27 RBC 2.85 L Hgb 8.2 L Hct 25.2 L MCV MCHC RDW 17.8 H Lymph % (Auto) Simpson % (Auto) Lymph # Simpson # Seg Neutrophils % Seg Neuts % (Manual) 77.0 H Lymphocytes % (Manual) 6.0 L Lymphocytes # (Manual) 0.4 L D-Dimer POC ABG pH POC ABG pCO2 POC ABG pO2 Potassium 2.6 L* D Chloride 97.3 L Carbon Dioxide 32 H Glucose 111 H POC Glucose Lactic Acid Magnesium AST Total Creatine Kinase 47 L Troponin T 0.063 H D C-Reactive Protein NT-Pro-B Natriuret Pep Albumin Urine WBC (Auto) 02/28/18 02/28/18 02/28/18 09:29 09:29 10:53 RBC Hgb Hct MCV MCHC RDW Lymph % (Auto) Simpson % (Auto) Lymph # Simpson # Seg Neutrophils % Seg Neuts % (Manual) Lymphocytes % (Manual) Lymphocytes # (Manual) D-Dimer POC ABG pH 7.510 H POC ABG pCO2 48.8 H POC ABG pO2 70 L Potassium 3.2 L D Chloride Carbon Dioxide Glucose POC Glucose Lactic Acid Magnesium 1.60 L AST Total Creatine Kinase Troponin T C-Reactive Protein 5.30 H NT-Pro-B Natriuret Pep Albumin Urine WBC (Auto) 02/28/18 02/28/18 03/01/18 13:20 18:44 00:16 RBC Hgb Hct MCV MCHC RDW Lymph % (Auto) Simpson % (Auto) Lymph # Simpson # Seg Neutrophils % Seg Neuts % (Manual) Lymphocytes % (Manual) Lymphocytes # (Manual) D-Dimer POC ABG pH POC ABG pCO2 POC ABG pO2 Potassium Chloride Carbon Dioxide Glucose POC Glucose 128 H 132 H 110 H Lactic Acid Magnesium AST Total Creatine Kinase Troponin T C-Reactive Protein NT-Pro-B Natriuret Pep Albumin Urine WBC (Auto) 03/01/18 03/01/18 03/01/18 05:28 11:39 16:04 RBC Hgb Hct MCV MCHC RDW Lymph % (Auto) Simpson % (Auto) Lymph # Simpson # Seg Neutrophils % Seg Neuts % (Manual) Lymphocytes % (Manual) Lymphocytes # (Manual) D-Dimer POC ABG pH 7.507 H POC ABG pCO2 45.3 H POC ABG pO2 Potassium Chloride Carbon Dioxide Glucose POC Glucose 117 H 113 H Lactic Acid Magnesium AST Total Creatine Kinase Troponin T C-Reactive Protein NT-Pro-B Natriuret Pep Albumin Urine WBC (Auto) 03/01/18 03/02/18 18:48 00:40 RBC Hgb Hct MCV MCHC RDW Lymph % (Auto) Simpson % (Auto) Lymph # Simpson # Seg Neutrophils % Seg Neuts % (Manual) Lymphocytes % (Manual) Lymphocytes # (Manual) D-Dimer POC ABG pH POC ABG pCO2 POC ABG pO2 Potassium Chloride Carbon Dioxide Glucose POC Glucose 110 H 120 H Lactic Acid Magnesium AST Total Creatine Kinase Troponin T C-Reactive Protein NT-Pro-B Natriuret Pep Albumin Urine WBC (Auto) Allied health notes reviewed: nursing
[2018-03-02] MEDS: DUONEB *Not for PRN Use IH SCH ×3 (08:25→20:24)
--- NOTE | 2018-03-02 09:22 | Progress Note ---
Assessment and Plan Assessment and plan: 1. CAP Pneumonia s/p extubation day 2, keep O2 sat > 92% Continue Cefepime, daptomycin Nebs treatment PRN Culture pending, ID following 3. Urinary tract infection On antibiotic 4. Partial bowel obstruction (resolved) Continue metronidazole 5. Hypertension Monitor BP , continue antihypertensive 6. DM type2 Glycemic management Insulin per sliding scale 7. A. fib with hypercoaguable state Continue anticoagulent Control heart rate 8. Lymphedema Dressing to LE Continue Lasix 9. Lower Extremity and sacral wounds Wound consult 10. Morbid obesity Continue Lovenox Continue Pepcid Continue supportive care Plan to tranfer to med/tele d/w pt, voiced understanding History Interval history: Pt is awake and Alert, post extubation day 2, no acute distress, O2 at 3L n/c, O2 sat is stable Hospitalist Physical - Constitutional Vitals: Temp Pulse Resp BP Pulse Ox 98.7 F 97 H 23 136/88 98 03/02/18 08:00 03/02/18 08:35 03/02/18 08:35 03/02/18 08:00 03/02/18 08:28 General appearance: Present: no acute distress - EENT Eyes: Present: EOM intact ENT: hearing intact - Neck Neck: Present: normal ROM - Respiratory Respiratory effort: normal - Cardiovascular Rhythm: regular - Extremities Extremities: No edema Peripheral Pulses: within normal limits - Abdominal General gastrointestinal: soft, non-tender, other (Obese) - Integumentary Integumentary: Present: warm, dry - Psychiatric Psychiatric: cooperative - Neurologic Neurologic: moves all extremities Results - Labs CBC & Chem 7: 02/28/18 05:50 02/28/18 09:29 Labs: Laboratory Last Values WBC 6.7 K/mm3 (4.5-11.0) 02/28/18 05:50 RBC 2.85 M/mm3 (3.65-5.03) L 02/28/18 05:50 Hgb 8.2 gm/dl (11.8-15.2) L 02/28/18 05:50 Hct 25.2 % (35.5-45.6) L 02/28/18 05:50 MCV 89 fl (84-94) 02/28/18 05:50 MCH 29 pg (28-32) 02/28/18 05:50 MCHC 33 % (32-34) 02/28/18 05:50 RDW 17.8 % (13.2-15.2) H 02/28/18 05:50 Plt Count 380 K/mm3 (140-440) 02/28/18 05:50 Lymph % (Auto) 9.2 % (13.4-35.0) L 02/27/18 20:11 [place] % (Auto) 12.3 % (0.0-7.3) H 02/27/18 20:11 Eos % (Auto) 0.1 % (0.0-4.3) 02/27/18 20:11 Baso % (Auto) 0.3 % (0.0-1.8) 02/27/18 20:11 Lymph # 0.8 K/mm3 (1.2-5.4) L 02/27/18 20:11 [place] # 1.0 K/mm3 (0.0-0.8) H 02/27/18 20:11 Eos # 0.0 K/mm3 (0.0-0.4) 02/27/18 20:11 Baso # 0.0 K/mm3 (0.0-0.1) 02/27/18 20:11 Add Manual Diff Complete 02/28/18 05:50 Total Counted 100 02/28/18 05:50 Seg Neutrophils % Death Claim Examiner 02/28/18 05:50 Seg Neuts % (Manual) 77.0 % (40.0-70.0) H 02/28/18 05:50 Band Neutrophils % 16.0 % 02/28/18 05:50 Lymphocytes % (Manual) 6.0 % (13.4-35.0) L 02/28/18 05:50 Reactive Lymphs % (Man) 0 % 02/28/18 05:50 Monocytes % (Manual) 1.0 % (0.0-7.3) 02/28/18 05:50 Eosinophils % (Manual) 0 % (0.0-4.3) 02/28/18 05:50 Basophils % (Manual) 0 % (0.0-1.8) 02/28/18 05:50 Metamyelocytes % 0 % 02/28/18 05:50 Myelocytes % 0 % 02/28/18 05:50 Promyelocytes % 0 % 02/28/18 05:50 Blast Cells % 0 % 02/28/18 05:50 Nucleated RBC % Not Reportable 02/28/18 05:50 Seg Neutrophils # 6.5 K/mm3 (1.8-7.7) 02/27/18 20:11 Seg Neutrophils # Man 5.2 K/mm3 (1.8-7.7) 02/28/18 05:50 Band Neutrophils # 1.1 K/mm3 02/28/18 05:50 Lymphocytes # (Manual) 0.4 K/mm3 (1.2-5.4) L 02/28/18 05:50 Abs React Lymphs (Man) 0.0 K/mm3 02/28/18 05:50 Monocytes # (Manual) 0.1 K/mm3 (0.0-0.8) 02/28/18 05:50 Eosinophils # (Manual) 0.0 K/mm3 (0.0-0.4) 02/28/18 05:50 Basophils # (Manual) 0.0 K/mm3 (0.0-0.1) 02/28/18 05:50 Metamyelocytes # 0.0 K/mm3 02/28/18 05:50 Myelocytes # 0.0 K/mm3 02/28/18 05:50 Promyelocytes # 0.0 K/mm3 02/28/18 05:50 Blast Cells # 0.0 K/mm3 02/28/18 05:50 WBC Morphology Not Reportable 02/28/18 05:50 Hypersegmented Neuts Not Reportable 02/28/18 05:50 Hyposegmented Neuts Not Reportable 02/28/18 05:50 Hypogranular Neuts Not Reportable 02/28/18 05:50 Smudge Cells Not Reportable 02/28/18 05:50 Toxic Granulation Not Reportable 02/28/18 05:50 Toxic Vacuolation Not Reportable 02/28/18 05:50 Dohle Bodies Not Reportable 02/28/18 05:50 Pelger-Huet Anomaly Not Reportable 02/28/18 05:50 Mikey Rods Not Reportable 02/28/18 05:50 Platelet Estimate Appears normal 02/28/18 05:50 Clumped Platelets Not Reportable 02/28/18 05:50 Plt Clumps, EDTA Not Reportable 02/28/18 05:50 Large Platelets Not Reportable 02/28/18 05:50 Giant Platelets Not Reportable 02/28/18 05:50 Platelet Satelliting Not Reportable 02/28/18 05:50 Plt Morphology Comment Not Reportable 02/28/18 05:50 RBC Morphology Not Reportable 02/28/18 05:50 Dimorphic RBCs Not Reportable 02/28/18 05:50 Polychromasia Few 02/28/18 05:50 Hypochromasia 1+ 02/28/18 05:50 Poikilocytosis Not Reportable 02/28/18 05:50 Anisocytosis 1+ 02/28/18 05:50 Microcytosis Not Reportable 02/28/18 05:50 Macrocytosis Not Reportable 02/28/18 05:50 Spherocytes Few 02/28/18 05:50 Pappenheimer Bodies Not Reportable 02/28/18 05:50 Sickle Cells Not Reportable 02/28/18 05:50 Target Cells Not Reportable 02/28/18 05:50 Tear Drop Cells Not Reportable 02/28/18 05:50 Ovalocytes Few 02/28/18 05:50 Helmet Cells Not Reportable 02/28/18 05:50 Lucero-Tyler Bodies Not Reportable 02/28/18 05:50 Dewey Rings Not Reportable 02/28/18 05:50 Chelsey Cells Not Reportable 02/28/18 05:50 Bite Cells Not Reportable 02/28/18 05:50 Crenated Cell Not Reportable 02/28/18 05:50 Elliptocytes Not Reportable 02/28/18 05:50 Acanthocytes (Spur) Not Reportable 02/28/18 05:50 Rouleaux Not Reportable 02/28/18 05:50 Hemoglobin C Crystals Not Reportable 02/28/18 05:50 Schistocytes Not Reportable 02/28/18 05:50 Malaria parasites Not Reportable 02/28/18 05:50 David Bodies Not Reportable 02/28/18 05:50 Hem Pathologist Commnt No 02/28/18 05:50 D-Dimer 1135.90 ng/mlDDU (0-234) H 02/27/18 20:11 POC ABG pH 7.507 (7.35-7.45) H 03/01/18 16:04 POC ABG pCO2 45.3 (35-45) H 03/01/18 16:04 POC ABG pO2 91 (80-105) 03/01/18 16:04 POC ABG HCO3 35.9 03/01/18 16:04 POC ABG Total CO2 37 03/01/18 16:04 POC ABG O2 Sat 98 03/01/18 16:04 POC ABG Base Excess 13 03/01/18 16:04 FiO2 35 % 03/01/18 16:04 Sodium 140 mmol/L (137-145) 02/28/18 07:22 Potassium 3.2 mmol/L (3.6-5.0) L D 02/28/18 09:29 Chloride 97.3 mmol/L (98-107) L 02/28/18 07:22 Carbon Dioxide 32 mmol/L (22-30) H 02/28/18 07:22 Anion Gap 13 mmol/L 02/28/18 07:22 BUN 12 mg/dL (9-20) 02/28/18 07:22 Creatinine 1.0 mg/dL (0.8-1.5) 02/28/18 07:22 Estimated GFR > 60 ml/min 02/28/18 07:22 BUN/Creatinine Ratio 12 % 02/28/18 07:22 Glucose 111 mg/dL (75-100) H 02/28/18 07:22 POC Glucose 109 (70-105) H 03/02/18 06:07 Lactic Acid 1.70 mmol/L (0.7-2.0) 02/27/18 21:16 Calcium 9.1 mg/dL (8.4-10.2) 02/28/18 07:22 Magnesium 1.60 mg/dL (1.7-2.3) L 02/28/18 09:29 Total Bilirubin 0.30 mg/dL (0.1-1.2) 02/27/18 20:11 AST 42 units/L (5-40) H 02/27/18 20:11 ALT 21 units/L (7-56) 02/27/18 20:11 Alkaline Phosphatase 93 units/L (35-129) 02/27/18 20:11 Total Creatine Kinase 47 units/L (55-170) L 02/28/18 07:27 CK-MB (CK-2) 1.1 ng/mL (0.0-4.0) 02/28/18 07:27 CK-MB (CK-2) Rel Index 2.3 (0-4) 02/28/18 07:27 Troponin T 0.063 ng/mL (0.00-0.029) H D 02/28/18 07:27 C-Reactive Protein 5.30 mg/dL (0.00-1.30) H 02/28/18 09:29 NT-Pro-B Natriuret Pep 3021 pg/mL (0-900) H 02/27/18 21:28 Total Protein 7.8 g/dL (6.3-8.2) 02/27/18 20:11 Albumin 3.1 g/dL (3.9-5) L 02/27/18 20:11 Albumin/Globulin Ratio 0.7 % 02/27/18 20:11 Triglycerides 92 mg/dL (2-149) 02/27/18 20:11 Cholesterol 128 mg/dL (50-199) 02/27/18 20:11 LDL Cholesterol Direct 71 mg/dL (50-130) 02/27/18 20:11 HDL Cholesterol 52 mg/dL (40-59) 02/27/18 20:11 Cholesterol/HDL Ratio 2.46 % 02/27/18 20:11 Urine Color Anitra (Yellow) 02/28/18 02:03 Urine Turbidity Cloudy (Clear) 02/28/18 02:03 Urine pH 5.0 (5.0-7.0) 02/28/18 02:03 Ur Specific [place] 1.029 (1.003-1.030) 02/28/18 02:03 Urine Protein 100 mg/dl mg/dL (Negative) 02/28/18 02:03 Urine Glucose (UA) Neg mg/dL (Negative) 02/28/18 02:03 Urine Ketones Neg mg/dL (Negative) 02/28/18 02:03 Urine Blood Neg (Negative) 02/28/18 02:03 Urine Nitrite Neg (Negative) 02/28/18 02:03 Urine Bilirubin Neg (Negative) 02/28/18 02:03 Urine Urobilinogen 2.0 mg/dL (<2.0) 02/28/18 02:03 Ur Leukocyte Esterase Lg (Negative) 02/28/18 02:03 Urine WBC (Auto) 80.0 /HPF (0.0-6.0) H 02/28/18 02:03 Urine RBC (Auto) 4.0 /HPF (0.0-6.0) 02/28/18 02:03 U Epithel Cells (Auto) 4.0 /HPF (0-13.0) 02/28/18 02:03 Urine Bacteria (Auto) 2+ /HPF (Negative) 02/28/18 02:03 Urine WBC Clumps 3+ /HPF 02/28/18 02:03 Hyaline Casts 98 /LPF 02/28/18 02:03 Urine Mucus 2+ /HPF 02/28/18 02:03 Urine Opiates Screen Presumptive negative 02/28/18 02:03 Urine Methadone Screen Presumptive negative 02/28/18 02:03 Ur Barbiturates Screen Presumptive negative 02/28/18 02:03 Ur Phencyclidine Scrn Presumptive negative 02/28/18 02:03 Ur Amphetamines Screen Presumptive negative 02/28/18 02:03 U Benzodiazepines Scrn Presumptive negative 02/28/18 02:03 Urine Cocaine Screen Presumptive negative 02/28/18 02:03 U Marijuana (THC) Screen Presumptive negative 02/28/18 02:03 Drugs of Abuse Note Disclamer 02/28/18 02:03
[2018-03-02] MEDS: Centrum Liq PO SCH (09:28)
[2018-03-02] MEDS: PREVACID SOLUTAB FEEDTUBE SCH (09:28)
[2018-03-02] MEDS: SODIUM CHLORIDE FLUSH SYRINGE 10 ML IV SCH (10:20)
[2018-03-02] MEDS: CUBICIN IV SCH (14:59)
[2018-03-02] MEDS: NACL 0.9% IV SCH (14:59)
[2018-03-02] MEDS: SENOKOT S PO SCH (22:48)
[2018-03-02] MEDS ORDERED: NACL 0.9% 500 ML 500 ML IV ONE (23:00)
[2018-03-02] MEDS: LOVENOX SUB-Q SCH (23:10)
[2018-03-03] MEDS: MAXIPIME/NS 2 GM/100 ML 2 GM/100 ML BAG IV SCH ×3 (06:47→22:36)
[2018-03-03] MEDS: DUONEB *Not for PRN Use IH SCH ×3 (07:46→20:21)
[2018-03-03] MEDS: FLAGYL 500 MG/100 ML 500 MG/100 ML BAG IV SCH (07:51)
--- NOTE | 2018-03-03 09:47 | Gastroenterology Progress Note ---
<JOSIFARTUN AGUIRREHerbert - Last Filed: 03/03/18 09:56> Assessment and Plan 1.dilated colon -CT scan showed dilated transverse colon but contrast extending to the rectum with no evidence of obstruction -etiology -possible developing Ogilvies -clinically, symptoms have now resolved. BM x 1 this am. Denies abd pain or N/ V. Tolerating diet. -continue daily bowel regimen (senna) and supportive care 2.recent LGIB -H/H 8.2/25.2-stable -no active signs of bleeding -colon was negative at EGD a year ago (per patient report) -morbid obesity and severe pulmonary issues complicate repeat endoscopy; will observe clinically at present unless overt bleeding develops -continue MVI and supportive care -patient will need to f/u with GI service at [facility] upon discharge to see if repeat scoping is needed -no further GI recommendations at this time -will sign off, please call if needed Subjective Date of service: 03/03/18 Principal diagnosis: dilated colon Interval history: Patient resting in bed w/o acute distress. Reports BM x 1 this am. Denies abd pain or N/V. Tolerating diet. No active signs of bleeding. Objective - Constitutional Vitals: Temp Pulse Resp BP Pulse Ox 98.6 F 88 24 140/91 96 03/03/18 09:33 03/03/18 09:33 03/03/18 09:33 03/03/18 09:33 03/03/18 09:33 General appearance: no acute distress, obese (morbidly) - Respiratory Respiratory: bilateral: diminished - Cardiovascular Rhythm: regularly irregular - Gastrointestinal General gastrointestinal: Present: soft, non-tender, non-distended, normal bowel sounds, other (morbidly obese) - Neurologic Neurological: alert and oriented x3 - Labs CBC & Chem 7: 02/28/18 05:50 02/28/18 09:29 Labs: Laboratory Results - last 24 hr 03/02/18 03/02/18 03/03/18 11:39 16:03 06:49 POC Glucose 125 H 134 H 90 <REJI SHEETS - Last Filed: 03/03/18 15:06> Assessment and Plan pt seen and examined. clinically doing well regarding gi symptoms. tolerating po, + bm's. Will sign off, f/u in [place] clinic after discharge where he receives his care. Please call as needed. Objective - Constitutional Vitals: Temp Pulse Resp BP Pulse Ox 98.3 F 87 18 129/83 93 03/03/18 11:45 03/03/18 13:23 03/03/18 13:23 03/03/18 11:45 03/03/18 11:45 - Labs CBC & Chem 7: 02/28/18 05:50 02/28/18 09:29 Labs: Laboratory Results - last 24 hr 03/02/18 03/03/18 03/03/18 16:03 06:49 11:42 POC Glucose 134 H 90 130 H
[2018-03-03] MEDS: PREVACID SOLUTAB FEEDTUBE SCH (10:54)
[2018-03-03] MEDS: Centrum Liq PO SCH (10:54)
--- NOTE | 2018-03-03 12:36 | Progress Note ---
Assessment and Plan Assessment: 1) Sepsis: Improved.. Etiology unclear ? pneumonia ? colitis ? cholecystitis ? left leg infection -Lactic acid 3.5. -CRP 5.3. - BC- ngtd -Respiratory - Normal leonidas -Urine Culture - Contaminated 2) Presumed pneumonia: ? CAP ? aspiration ? HAP -Chest x-ray show bilateral CHF changes and atelectasis to the right lower lobe. -CTA of the chest show bilateral atelectasis versus infiltrates. 3) Diarrhea: reported by ED staff but none since admission to ICU -CT abdomen showed distended transverse colo 4) Distended GB ? acute cholecystitis -CT abdomen showed gallbladder and mild pericholecystic fluid. -CT 02/28-dilated colon. CT scan showed dilated transverse colon but contrast extending to the rectum with no evidence of obstruction. etiology - possible developing Ogilvies. -HIDA scan cannot be done/patient morbidly obese 2.recent LGIB 5) History of hypertension 6) Diabetes 7) A. fib 8) Left leg Lymphedema 9) Chronic respiratory failure 10) Acute encephalopathy 11) Recent GI bleed -BM times 1 today. 12) Linezolid and vanco allergies Plan: -f/u on Procalcitonin and CRP - f/u on Wound care consult - left leg - continue cefapime, D4 - continue contact isolation for now [facility] M: [phone] O:[phone] Subjective Date of service: 03/03/18 Principal diagnosis: dilated colon Interval history: patient was laying in bed. Patient stated that he was feelling much better today. Microbiology: Blood cultures: 02/27 ngtd Respiratory cultures: 02/27 TA ngtd Wound cultures: Current Antimicrobials: lCefepime, Previous Antimicrobials:Zosyn PO vanco flagyl Objective - Exam Narrative Exam: General appearance: Alert, Conversant. Eyes: anicteric sclerae, moist conjunctivae; no lid-lag; PERRLA HENT: Atraumatic; oropharynx +ETT +NGT Neck: Trachea midline; supple, no thyromegaly or lymphadenopathy Lungs: coarse BS ko CV: RRR, no murmurs Abdomen: Soft, non-tender; no masses or hepatosplenomegaly Extremities:+ left leg lymphedema with large crust limited exam Skin: +forehead scar Psych: sedated Neuro: sedated Lines: No CVL / PICC - Constitutional Vitals: Vital Signs Temp Pulse Resp BP Pulse Ox 98.3 F 88 22 129/83 93 03/03/18 11:45 03/03/18 11:45 03/03/18 11:45 03/03/18 11:45 03/03/18 11:45 Temperature -Last 24 Hours Temperature 98.3 F Temperature 98.6 F Temperature 99.3 F Temperature 99.0 F Temperature 98.8 F Temperature 98.5 F - Labs CBC & Chem 7: 02/28/18 05:50 02/28/18 09:29 Labs: Abnormal lab results 03/02/18 Range/Units 16:03 POC Glucose 134 H (70-105)
--- NOTE | 2018-03-03 13:48 | Progress Note ---
Assessment and Plan Acute hypoxemic respiratory failure, on mechanical ventilator support. Bilateral pulmonary infiltrates, pulmonary edema versus pneumonia. Acute encephalopathy, improved. Systemic inflammatory response syndrome. Possible bowel obstruction with dilated colon. Diabetes. History of hypertension. Recent gastrointestinal bleed. Anemia, macrocytic. Likely obstructive sleep apnea. Non-ST elevation myocardial infarction. - continue bronchodilators with pulmonary hygiene per RT - continue supplemental oxygen to keep sats > 90% - continue ABs for HCAP and per ID recs - continue mobility protocol for pressure ulcer prophylaxis - PT/OT - continue wound care per WCT - continue GI & DVT prophylaxis - advance diet per ST - continue glycemic control with SSI - prn KUB's re: colonic dilatation and passive decompression with rectal tube ( seen by surgeon and no intervention planned otherwise) - cardiology evaluation per attending - continue other care per attending / other consultants .... re-evaluate in am & prn Subjective Date of service: 03/03/18 Principal diagnosis: Acute hypoxemic respiratory failure; Bilateral pulmonary infiltrates; Acut Interval history: Patient is seen today for: Acute hypoxemic respiratory failure; Bilateral pulmonary infiltrates; Acute encephalopathy; SIRS Seen and examined at bedside; 24hour events reviewed; nursing and respiratory care staff consulted; no adverse overnight events reported to me; resting in bed ; doing better; denies acute chest pains or palpitations; resting in bed; remains on supplemental oxygen Objective Vital Signs - 12hr 03/03/18 03/03/18 03/03/18 02:28 03:55 04:00 Temperature 99.3 F Pulse Rate 79 Pulse Rate [ Anterior Bilateral Throughout] Respiratory 24 18 Rate Respiratory Rate [Anterior Bilateral Throughout] Blood Pressure 127/86 O2 Sat by Pulse 98 97 96 Oximetry 03/03/18 03/03/18 03/03/18 07:46 07:56 09:33 Temperature 98.6 F Pulse Rate 88 Pulse Rate [ 74 78 Anterior Bilateral Throughout] Respiratory 24 Rate Respiratory 18 18 Rate [Anterior Bilateral Throughout] Blood Pressure 140/91 O2 Sat by Pulse 98 96 Oximetry 03/03/18 03/03/18 10:00 11:45 Temperature 98.3 F Pulse Rate 78 88 Pulse Rate [ Anterior Bilateral Throughout] Respiratory 22 Rate Respiratory Rate [Anterior Bilateral Throughout] Blood Pressure 129/83 O2 Sat by Pulse 93 Oximetry Constitutional: no acute distress, alert, other (Morbidly obese AAM, normocephalic and atraumatic) Eyes: non-icteric ENT: oropharynx moist, other (extubated) Neck: supple, no lymphadenopathy, no JVD, other (No thyromegaly) Effort: mildly labored Ascultation: Bilateral: diminished breath sounds, rhonchi (scant) Percussion: Bilateral: not dull Cardiovascular: regular rate and rhythm, other (No R/M) Gastrointestinal: normoactive bowel sounds, soft, non-tender, non-distended, other (No palpable HSM) Integumentary: cellulitis, decubitus ulcer Extremities: no cyanosis, pulses normal, edema, other (wound to right dunn) Neurologic: normal mental status, non-focal exam, pupils equal and round, CN II- XII normal Psychiatric: mood appropriate, affect normal CBC and BMP: 02/28/18 05:50 02/28/18 09:29 ABG, PT/INR, D-dimer: ABG POC ABG pH 7.507 (7.35-7.45) H 03/01/18 16:04 POC ABG pCO2 45.3 (35-45) H 03/01/18 16:04 POC ABG pO2 91 (80-105) 03/01/18 16:04 POC ABG HCO3 35.9 03/01/18 16:04 POC ABG Total CO2 37 03/01/18 16:04 POC ABG O2 Sat 98 03/01/18 16:04 PT/INR, D-dimer D-Dimer 1135.90 ng/mlDDU (0-234) H 02/27/18 20:11 Abnormal lab findings: Abnormal Labs 02/27/18 02/27/18 02/27/18 20:11 20:11 20:11 RBC 3.06 L Hgb 8.8 L Hct 29.1 L MCV 95 H MCHC 30 L RDW 18.0 H Lymph % (Auto) 9.2 L Clarke % (Auto) 12.3 H Lymph # 0.8 L Clarke # 1.0 H Seg Neutrophils % 78.1 H Seg Neuts % (Manual) Lymphocytes % (Manual) Lymphocytes # (Manual) D-Dimer 1135.90 H POC ABG pH POC ABG pCO2 POC ABG pO2 Potassium Chloride 93.7 L Carbon Dioxide Glucose POC Glucose Lactic Acid Magnesium AST 42 H Total Creatine Kinase 51 L Troponin T 0.046 H C-Reactive Protein NT-Pro-B Natriuret Pep Albumin 3.1 L Urine WBC (Auto) 02/27/18 02/27/18 02/27/18 20:11 20:25 21:28 RBC Hgb Hct MCV MCHC RDW Lymph % (Auto) [place] % (Auto) Lymph # Clarke # Seg Neutrophils % Seg Neuts % (Manual) Lymphocytes % (Manual) Lymphocytes # (Manual) D-Dimer POC ABG pH POC ABG pCO2 60.6 H POC ABG pO2 269 H Potassium Chloride Carbon Dioxide Glucose POC Glucose Lactic Acid 3.50 H* Magnesium AST Total Creatine Kinase Troponin T C-Reactive Protein NT-Pro-B Natriuret Pep 3021 H Albumin Urine WBC (Auto) 02/27/18 02/28/18 02/28/18 23:59 01:46 02:03 RBC Hgb Hct MCV MCHC RDW Lymph % (Auto) [place] % (Auto) Lymph # Clarke # Seg Neutrophils % Seg Neuts % (Manual) Lymphocytes % (Manual) Lymphocytes # (Manual) D-Dimer POC ABG pH POC ABG pCO2 POC ABG pO2 Potassium Chloride Carbon Dioxide Glucose POC Glucose Lactic Acid Magnesium AST Total Creatine Kinase 34 L 41 L Troponin T 0.042 H 0.046 H C-Reactive Protein NT-Pro-B Natriuret Pep Albumin Urine WBC (Auto) 80.0 H 02/28/18 02/28/18 02/28/18 05:50 07:22 07:27 RBC 2.85 L Hgb 8.2 L Hct 25.2 L MCV MCHC RDW 17.8 H Lymph % (Auto) [place] % (Auto) Lymph # Clarke # Seg Neutrophils % Seg Neuts % (Manual) 77.0 H Lymphocytes % (Manual) 6.0 L Lymphocytes # (Manual) 0.4 L D-Dimer POC ABG pH POC ABG pCO2 POC ABG pO2 Potassium 2.6 L* D Chloride 97.3 L Carbon Dioxide 32 H Glucose 111 H POC Glucose Lactic Acid Magnesium AST Total Creatine Kinase 47 L Troponin T 0.063 H D C-Reactive Protein NT-Pro-B Natriuret Pep Albumin Urine WBC (Auto) 02/28/18 02/28/18 02/28/18 09:29 09:29 10:53 RBC Hgb Hct MCV MCHC RDW Lymph % (Auto) [place] % (Auto) Lymph # Clarke # Seg Neutrophils % Seg Neuts % (Manual) Lymphocytes % (Manual) Lymphocytes # (Manual) D-Dimer POC ABG pH 7.510 H POC ABG pCO2 48.8 H POC ABG pO2 70 L Potassium 3.2 L D Chloride Carbon Dioxide Glucose POC Glucose Lactic Acid Magnesium 1.60 L AST Total Creatine Kinase Troponin T C-Reactive Protein 5.30 H NT-Pro-B Natriuret Pep Albumin Urine WBC (Auto) 02/28/18 02/28/18 03/01/18 13:20 18:44 00:16 RBC Hgb Hct MCV MCHC RDW Lymph % (Auto) [place] % (Auto) Lymph # Clarke # Seg Neutrophils % Seg Neuts % (Manual) Lymphocytes % (Manual) Lymphocytes # (Manual) D-Dimer POC ABG pH POC ABG pCO2 POC ABG pO2 Potassium Chloride Carbon Dioxide Glucose POC Glucose 128 H 132 H 110 H Lactic Acid Magnesium AST Total Creatine Kinase Troponin T C-Reactive Protein NT-Pro-B Natriuret Pep Albumin Urine WBC (Auto) 03/01/18 03/01/18 03/01/18 05:28 11:39 16:04 RBC Hgb Hct MCV MCHC RDW Lymph % (Auto) [place] % (Auto) Lymph # Clarke # Seg Neutrophils % Seg Neuts % (Manual) Lymphocytes % (Manual) Lymphocytes # (Manual) D-Dimer POC ABG pH 7.507 H POC ABG pCO2 45.3 H POC ABG pO2 Potassium Chloride Carbon Dioxide Glucose POC Glucose 117 H 113 H Lactic Acid Magnesium AST Total Creatine Kinase Troponin T C-Reactive Protein NT-Pro-B Natriuret Pep Albumin Urine WBC (Auto) 03/01/18 03/02/18 03/02/18 18:48 00:40 06:07 RBC Hgb Hct MCV MCHC RDW Lymph % (Auto) [place] % (Auto) Lymph # Clarke # Seg Neutrophils % Seg Neuts % (Manual) Lymphocytes % (Manual) Lymphocytes # (Manual) D-Dimer POC ABG pH POC ABG pCO2 POC ABG pO2 Potassium Chloride Carbon Dioxide Glucose POC Glucose 110 H 120 H 109 H Lactic Acid Magnesium AST Total Creatine Kinase Troponin T C-Reactive Protein NT-Pro-B Natriuret Pep Albumin Urine WBC (Auto) 03/02/18 03/02/18 03/03/18 11:39 16:03 11:42 RBC Hgb Hct MCV MCHC RDW Lymph % (Auto) [place] % (Auto) Lymph # Clarke # Seg Neutrophils % Seg Neuts % (Manual) Lymphocytes % (Manual) Lymphocytes # (Manual) D-Dimer POC ABG pH POC ABG pCO2 POC ABG pO2 Potassium Chloride Carbon Dioxide Glucose POC Glucose 125 H 134 H 130 H Lactic Acid Magnesium AST Total Creatine Kinase Troponin T C-Reactive Protein NT-Pro-B Natriuret Pep Albumin Urine WBC (Auto) Allied health notes reviewed: nursing
--- NOTE | 2018-03-03 14:47 | Progress Note ---
Assessment and Plan Assessment and plan: 62-year-old man with history of hypertension, diabetes, A. fib, lymphedema, chronic respiratory failure was sent from shelter for evaluation of decreased responsiveness and shortness of breath. Patient is on ventilator, review of system is unobtainable. He was just discharged from the hospital on the of this month for GI bleed, xarelto was put on hold PAST MEDICAL HISTORY:hypertension, diabetes, A. fib, lymphedema, chronic respiratory failure Acute on chronic respiratory failure on MV extubated on 03/01 Pneumonia cont abx, ID on board Urinary tract infection ruled out, u cx neg Negin syndrome; Dilatation of the large intestine, Partial bowel obstruction conservative mgt, advanced diet GI input appreciated Abnormal cardiac enzymes, likely demand ischemia conservative mgt, no CP Chronic med problems are below, continue chronic meds Hypertension Diabetes A. fib with hypercoaguable state; blood thinners dc due to recent GIB Lymphedema- lasix Lower Extremity and sacral wounds- wound care ll History Interval history: has been awake and alert and obeying commands abdominal distension has improved -had A BM, and it was not diarrhea Hospitalist Physical - Physical exam Narrative exam: General.: Appears well, no distress, nontoxic, morbidly obese HEENT: Moist mucous membranes, extraocular muscles intact, no lymphadenopathy Neck: supple Cardiac: S1-S2 heard Lungs: clear to auscultation bilaterally Abdomen: soft , nontender, nondistended, bowel sounds positive Extremities: no edema clubbing or cyanosis Skin: no rash or lesions Neurologic: moves all extremities - Constitutional Vitals: Temp Pulse Resp BP Pulse Ox 98.3 F 87 18 129/83 93 03/03/18 11:45 03/03/18 13:23 03/03/18 13:23 03/03/18 11:45 03/03/18 11:45 General appearance: Present: no acute distress Results - Labs CBC & Chem 7: 02/28/18 05:50 02/28/18 09:29 Labs: Laboratory Last Values WBC 6.7 K/mm3 (4.5-11.0) 02/28/18 05:50 RBC 2.85 M/mm3 (3.65-5.03) L 02/28/18 05:50 Hgb 8.2 gm/dl (11.8-15.2) L 02/28/18 05:50 Hct 25.2 % (35.5-45.6) L 02/28/18 05:50 MCV 89 fl (84-94) 02/28/18 05:50 MCH 29 pg (28-32) 02/28/18 05:50 MCHC 33 % (32-34) 02/28/18 05:50 RDW 17.8 % (13.2-15.2) H 02/28/18 05:50 Plt Count 380 K/mm3 (140-440) 02/28/18 05:50 Lymph % (Auto) 9.2 % (13.4-35.0) L 02/27/18 20:11 [place] % (Auto) 12.3 % (0.0-7.3) H 02/27/18 20:11 Eos % (Auto) 0.1 % (0.0-4.3) 02/27/18 20:11 Baso % (Auto) 0.3 % (0.0-1.8) 02/27/18 20:11 Lymph # 0.8 K/mm3 (1.2-5.4) L 02/27/18 20:11 [place] # 1.0 K/mm3 (0.0-0.8) H 02/27/18 20:11 Eos # 0.0 K/mm3 (0.0-0.4) 02/27/18 20:11 Baso # 0.0 K/mm3 (0.0-0.1) 02/27/18 20:11 Add Manual Diff Complete 02/28/18 05:50 Total Counted 100 02/28/18 05:50 Seg Neutrophils % Car [place]ter 02/28/18 05:50 Seg Neuts % (Manual) 77.0 % (40.0-70.0) H 02/28/18 05:50 Band Neutrophils % 16.0 % 02/28/18 05:50 Lymphocytes % (Manual) 6.0 % (13.4-35.0) L 02/28/18 05:50 Reactive Lymphs % (Man) 0 % 02/28/18 05:50 Monocytes % (Manual) 1.0 % (0.0-7.3) 02/28/18 05:50 Eosinophils % (Manual) 0 % (0.0-4.3) 02/28/18 05:50 Basophils % (Manual) 0 % (0.0-1.8) 02/28/18 05:50 Metamyelocytes % 0 % 02/28/18 05:50 Myelocytes % 0 % 02/28/18 05:50 Promyelocytes % 0 % 02/28/18 05:50 Blast Cells % 0 % 02/28/18 05:50 Nucleated RBC % Not Reportable 02/28/18 05:50 Seg Neutrophils # 6.5 K/mm3 (1.8-7.7) 02/27/18 20:11 Seg Neutrophils # Man 5.2 K/mm3 (1.8-7.7) 02/28/18 05:50 Band Neutrophils # 1.1 K/mm3 02/28/18 05:50 Lymphocytes # (Manual) 0.4 K/mm3 (1.2-5.4) L 02/28/18 05:50 Abs React Lymphs (Man) 0.0 K/mm3 02/28/18 05:50 Monocytes # (Manual) 0.1 K/mm3 (0.0-0.8) 02/28/18 05:50 Eosinophils # (Manual) 0.0 K/mm3 (0.0-0.4) 02/28/18 05:50 Basophils # (Manual) 0.0 K/mm3 (0.0-0.1) 02/28/18 05:50 Metamyelocytes # 0.0 K/mm3 02/28/18 05:50 Myelocytes # 0.0 K/mm3 02/28/18 05:50 Promyelocytes # 0.0 K/mm3 02/28/18 05:50 Blast Cells # 0.0 K/mm3 02/28/18 05:50 WBC Morphology Not Reportable 02/28/18 05:50 Hypersegmented Neuts Not Reportable 02/28/18 05:50 Hyposegmented Neuts Not Reportable 02/28/18 05:50 Hypogranular Neuts Not Reportable 02/28/18 05:50 Smudge Cells Not Reportable 02/28/18 05:50 Toxic Granulation Not Reportable 02/28/18 05:50 Toxic Vacuolation Not Reportable 02/28/18 05:50 Dohle Bodies Not Reportable 02/28/18 05:50 Pelger-Huet Anomaly Not Reportable 02/28/18 05:50 Mikey Rods Not Reportable 02/28/18 05:50 Platelet Estimate Appears normal 02/28/18 05:50 Clumped Platelets Not Reportable 02/28/18 05:50 Plt Clumps, EDTA Not Reportable 02/28/18 05:50 Large Platelets Not Reportable 02/28/18 05:50 Giant Platelets Not Reportable 02/28/18 05:50 Platelet Satelliting Not Reportable 02/28/18 05:50 Plt Morphology Comment Not Reportable 02/28/18 05:50 RBC Morphology Not Reportable 02/28/18 05:50 Dimorphic RBCs Not Reportable 02/28/18 05:50 Polychromasia Few 02/28/18 05:50 Hypochromasia 1+ 02/28/18 05:50 Poikilocytosis Not Reportable 02/28/18 05:50 Anisocytosis 1+ 02/28/18 05:50 Microcytosis Not Reportable 02/28/18 05:50 Macrocytosis Not Reportable 02/28/18 05:50 Spherocytes Few 02/28/18 05:50 Pappenheimer Bodies Not Reportable 02/28/18 05:50 Sickle Cells Not Reportable 02/28/18 05:50 Target Cells Not Reportable 02/28/18 05:50 Tear Drop Cells Not Reportable 02/28/18 05:50 Ovalocytes Few 02/28/18 05:50 Helmet Cells Not Reportable 02/28/18 05:50 [place] Bodies Not Reportable 02/28/18 05:50 [place] Rings Not Reportable 02/28/18 05:50 [place] Cells Not Reportable 02/28/18 05:50 Bite Cells Not Reportable 02/28/18 05:50 Crenated Cell Not Reportable 02/28/18 05:50 Elliptocytes Not Reportable 02/28/18 05:50 Acanthocytes (Spur) Not Reportable 02/28/18 05:50 Rouleaux Not Reportable 02/28/18 05:50 Hemoglobin C Crystals Not Reportable 02/28/18 05:50 Schistocytes Not Reportable 02/28/18 05:50 Malaria parasites Not Reportable 02/28/18 05:50 David Bodies Not Reportable 02/28/18 05:50 Hem Pathologist Commnt No 02/28/18 05:50 D-Dimer 1135.90 ng/mlDDU (0-234) H 02/27/18 20:11 POC ABG pH 7.507 (7.35-7.45) H 03/01/18 16:04 POC ABG pCO2 45.3 (35-45) H 03/01/18 16:04 POC ABG pO2 91 (80-105) 03/01/18 16:04 POC ABG HCO3 35.9 03/01/18 16:04 POC ABG Total CO2 37 03/01/18 16:04 POC ABG O2 Sat 98 03/01/18 16:04 POC ABG Base Excess 13 03/01/18 16:04 FiO2 35 % 03/01/18 16:04 Sodium 140 mmol/L (137-145) 02/28/18 07:22 Potassium 3.2 mmol/L (3.6-5.0) L D 02/28/18 09:29 Chloride 97.3 mmol/L (98-107) L 02/28/18 07:22 Carbon Dioxide 32 mmol/L (22-30) H 02/28/18 07:22 Anion Gap 13 mmol/L 02/28/18 07:22 BUN 12 mg/dL (9-20) 02/28/18 07:22 Creatinine 1.0 mg/dL (0.8-1.5) 02/28/18 07:22 Estimated GFR > 60 ml/min 02/28/18 07:22 BUN/Creatinine Ratio 12 % 02/28/18 07:22 Glucose 111 mg/dL (75-100) H 02/28/18 07:22 POC Glucose 130 (70-105) H 03/03/18 11:42 Lactic Acid 1.70 mmol/L (0.7-2.0) 02/27/18 21:16 Calcium 9.1 mg/dL (8.4-10.2) 02/28/18 07:22 Magnesium 1.60 mg/dL (1.7-2.3) L 02/28/18 09:29 Total Bilirubin 0.30 mg/dL (0.1-1.2) 02/27/18 20:11 AST 42 units/L (5-40) H 02/27/18 20:11 ALT 21 units/L (7-56) 02/27/18 20:11 Alkaline Phosphatase 93 units/L (35-129) 02/27/18 20:11 Total Creatine Kinase 47 units/L (55-170) L 02/28/18 07:27 CK-MB (CK-2) 1.1 ng/mL (0.0-4.0) 02/28/18 07:27 CK-MB (CK-2) Rel Index 2.3 (0-4) 02/28/18 07:27 Troponin T 0.063 ng/mL (0.00-0.029) H D 02/28/18 07:27 C-Reactive Protein 5.30 mg/dL (0.00-1.30) H 02/28/18 09:29 NT-Pro-B Natriuret Pep 3021 pg/mL (0-900) H 02/27/18 21:28 Total Protein 7.8 g/dL (6.3-8.2) 02/27/18 20:11 Albumin 3.1 g/dL (3.9-5) L 02/27/18 20:11 Albumin/Globulin Ratio 0.7 % 02/27/18 20:11 Triglycerides 92 mg/dL (2-149) 02/27/18 20:11 Cholesterol 128 mg/dL (50-199) 02/27/18 20:11 LDL Cholesterol Direct 71 mg/dL (50-130) 02/27/18 20:11 HDL Cholesterol 52 mg/dL (40-59) 02/27/18 20:11 Cholesterol/HDL Ratio 2.46 % 02/27/18 20:11 Urine Color Anitra (Yellow) 02/28/18 02:03 Urine Turbidity Cloudy (Clear) 02/28/18 02:03 Urine pH 5.0 (5.0-7.0) 02/28/18 02:03 Ur Specific [place] 1.029 (1.003-1.030) 02/28/18 02:03 Urine Protein 100 mg/dl mg/dL (Negative) 02/28/18 02:03 Urine Glucose (UA) Neg mg/dL (Negative) 02/28/18 02:03 Urine Ketones Neg mg/dL (Negative) 02/28/18 02:03 Urine Blood Neg (Negative) 02/28/18 02:03 Urine Nitrite Neg (Negative) 02/28/18 02:03 Urine Bilirubin Neg (Negative) 02/28/18 02:03 Urine Urobilinogen 2.0 mg/dL (<2.0) 02/28/18 02:03 Ur Leukocyte Esterase Lg (Negative) 02/28/18 02:03 Urine WBC (Auto) 80.0 /HPF (0.0-6.0) H 02/28/18 02:03 Urine RBC (Auto) 4.0 /HPF (0.0-6.0) 02/28/18 02:03 U Epithel Cells (Auto) 4.0 /HPF (0-13.0) 02/28/18 02:03 Urine Bacteria (Auto) 2+ /HPF (Negative) 02/28/18 02:03 Urine WBC Clumps 3+ /HPF 02/28/18 02:03 Hyaline Casts 98 /LPF 02/28/18 02:03 Urine Mucus 2+ /HPF 02/28/18 02:03 Urine Opiates Screen Presumptive negative 02/28/18 02:03 Urine Methadone Screen Presumptive negative 02/28/18 02:03 Ur Barbiturates Screen Presumptive negative 02/28/18 02:03 Ur Phencyclidine Scrn Presumptive negative 02/28/18 02:03 Ur Amphetamines Screen Presumptive negative 02/28/18 02:03 U Benzodiazepines Scrn Presumptive negative 02/28/18 02:03 Urine Cocaine Screen Presumptive negative 02/28/18 02:03 U Marijuana (THC) Screen Presumptive negative 02/28/18 02:03 Drugs of Abuse Note Disclamer 02/28/18 02:03
[2018-03-03] MEDS: SODIUM CHLORIDE FLUSH SYRINGE 10 ML IV SCH (21:54)
[2018-03-03] MEDS: SENOKOT S PO SCH (22:23)
[2018-03-03] MEDS: LOVENOX SUB-Q SCH (22:24)
[2018-03-04] MEDS: MAXIPIME/NS 2 GM/100 ML 2 GM/100 ML BAG IV SCH ×3 (07:10→23:13)
[2018-03-04] MEDS: DUONEB *Not for PRN Use IH SCH ×3 (08:55→20:36)
[2018-03-04] MEDS: Centrum Liq PO SCH (09:51)
[2018-03-04] MEDS: PREVACID SOLUTAB FEEDTUBE SCH (09:51)
--- NOTE | 2018-03-04 13:02 | Progress Note ---
Assessment and Plan Assessment: 1) Sepsis: Improved.. Etiology unclear ? pneumonia ? colitis ? cholecystitis ? left leg infection -Lactic acid 3.5. -CRP 5.3. - BC- ngtd -Respiratory - Normal leonidas -Urine Culture - Contaminated 2) Presumed pneumonia: ? CAP ? aspiration ? HAP -Chest x-ray show bilateral CHF changes and atelectasis to the right lower lobe. -CTA of the chest show bilateral atelectasis versus infiltrates. 3) Diarrhea: reported by ED staff but none since admission to ICU -CT abdomen showed distended transverse colo 4) Distended GB ? acute cholecystitis -CT abdomen showed gallbladder and mild pericholecystic fluid. -CT 02/28-dilated colon. CT scan showed dilated transverse colon but contrast extending to the rectum with no evidence of obstruction. etiology - possible developing [place]. -HIDA scan cannot be done/patient morbidly obese 5) History of hypertension 6) Diabetes 7) A. fib 8) Left leg Lymphedema 9) Chronic respiratory failure 10) Acute encephalopathy 11) Recent GI bleed -BM 2x today, normal consistency 12) Linezolid and vanco allergies Plan: -f/u on Procalcitonin and CRP stat ordered - f/u on Wound care consult to be seen today. - continue cefapime D5 then stop - continue contact isolation for now [facility] M: [phone] O:[phone] Subjective Date of service: 03/04/18 Principal diagnosis: dilated colon Interval history: patient was laying in bed. Patient stated that he was feelling much better today. Microbiology: Blood cultures: 02/27 ngtd Respiratory cultures: 02/27 TA ngtd Wound cultures: Current Antimicrobials: lCefepime, Previous Antimicrobials:Zosyn PO vanco flagyl Objective - Exam Narrative Exam: General appearance: Alert, Conversant. Eyes: anicteric sclerae, moist conjunctivae; no lid-lag; PERRLA HENT: Atraumatic; oropharynx +ETT +NGT Neck: Trachea midline; supple, no thyromegaly or lymphadenopathy Lungs: coarse BS ko CV: RRR, no murmurs Abdomen: Soft, non-tender; no masses or hepatosplenomegaly Extremities:+ left leg lymphedema with large crust limited exam Skin: +forehead scar Psych: sedated Neuro: sedated Lines: No CVL / PICC - Constitutional Vitals: Vital Signs Temp Pulse Resp BP Pulse Ox 98.8 F 85 16 126/80 97 03/04/18 04:12 03/04/18 11:20 03/04/18 09:21 03/04/18 09:21 03/04/18 11:20 Temperature -Last 24 Hours Temperature 98.8 F Temperature 98.8 F Temperature 98.5 F Temperature 98.7 F - Labs CBC & Chem 7: 02/28/18 05:50 02/28/18 09:29 Labs: Abnormal lab results 03/03/18 03/03/18 03/03/18 Range/Units 11:42 18:13 21:02 POC Glucose 130 H 108 H 133 H (70-105) 03/04/18 Range/Units 06:03 POC Glucose 108 H (70-105)
[2018-03-04] MEDS: PERCOCET 5/325 PO PRN (18:48)
[2018-03-04] MEDS: SENOKOT S PO SCH (23:13)
[2018-03-04] MEDS: LOVENOX SUB-Q SCH (23:13)
--- NOTE | 2018-03-04 23:41 | Progress Note ---
Assessment and Plan Assessment and plan: 62-year-old man with history of hypertension, diabetes, A. fib, lymphedema, chronic respiratory failure was [facility] for evaluation of decreased responsiveness and shortness of breath. Patient is on ventilator, review of system is unobtainable. He was just discharged from the hospital on the of this month for GI bleed, xarelto was put on hold PAST MEDICAL HISTORY:hypertension, diabetes, A. fib, lymphedema, chronic respiratory failure Acute on chronic respiratory failure on MV extubated on 03/01 Pneumonia cont abx, today will be last day, ID on board Urinary tract infection ruled out, u cx neg Negin syndrome; Dilatation of the large intestine, Partial bowel obstruction conservative mgt, advanced diet GI input appreciated Abnormal cardiac enzymes, likely demand ischemia conservative mgt, no CP Chronic med problems are below, continue chronic meds Hypertension Diabetes A. fib with hypercoaguable state; blood thinners dc due to recent GIB Lymphedema- lasix Lower Extremity and sacral wounds- wound care Dispo; back to [place] tomorrow History Interval history: has been awake and alert and obeying commands abdominal distension has improved -had A BM, and it was not diarrhea Hospitalist Physical - Physical exam Narrative exam: General.: Appears well, no distress, nontoxic, morbidly obese HEENT: Moist mucous membranes, extraocular muscles intact, no lymphadenopathy Neck: supple Cardiac: S1-S2 heard Lungs: clear to auscultation bilaterally Abdomen: soft , nontender, nondistended, bowel sounds positive Extremities: no edema clubbing or cyanosis Skin: no rash or lesions Neurologic: moves all extremities - Constitutional Vitals: Temp Pulse Resp BP Pulse Ox 98.8 F 83 20 143/83 99 03/04/18 04:12 03/04/18 20:46 03/04/18 20:46 03/04/18 19:30 03/04/18 20:39 General appearance: Present: no acute distress Results - Labs CBC & Chem 7: 02/28/18 05:50 02/28/18 09:29 Labs: Laboratory Last Values WBC 6.7 K/mm3 (4.5-11.0) 02/28/18 05:50 RBC 2.85 M/mm3 (3.65-5.03) L 02/28/18 05:50 Hgb 8.2 gm/dl (11.8-15.2) L 02/28/18 05:50 Hct 25.2 % (35.5-45.6) L 02/28/18 05:50 MCV 89 fl (84-94) 02/28/18 05:50 MCH 29 pg (28-32) 02/28/18 05:50 MCHC 33 % (32-34) 02/28/18 05:50 RDW 17.8 % (13.2-15.2) H 02/28/18 05:50 Plt Count 380 K/mm3 (140-440) 02/28/18 05:50 Lymph % (Auto) 9.2 % (13.4-35.0) L 02/27/18 20:11 [place] % (Auto) 12.3 % (0.0-7.3) H 02/27/18 20:11 Eos % (Auto) 0.1 % (0.0-4.3) 02/27/18 20:11 Baso % (Auto) 0.3 % (0.0-1.8) 02/27/18 20:11 Lymph # 0.8 K/mm3 (1.2-5.4) L 02/27/18 20:11 [place] # 1.0 K/mm3 (0.0-0.8) H 02/27/18 20:11 Eos # 0.0 K/mm3 (0.0-0.4) 02/27/18 20:11 Baso # 0.0 K/mm3 (0.0-0.1) 02/27/18 20:11 Add Manual Diff Complete 02/28/18 05:50 Total Counted 100 02/28/18 05:50 Seg Neutrophils % Appian Developer 02/28/18 05:50 Seg Neuts % (Manual) 77.0 % (40.0-70.0) H 02/28/18 05:50 Band Neutrophils % 16.0 % 02/28/18 05:50 Lymphocytes % (Manual) 6.0 % (13.4-35.0) L 02/28/18 05:50 Reactive Lymphs % (Man) 0 % 02/28/18 05:50 Monocytes % (Manual) 1.0 % (0.0-7.3) 02/28/18 05:50 Eosinophils % (Manual) 0 % (0.0-4.3) 02/28/18 05:50 Basophils % (Manual) 0 % (0.0-1.8) 02/28/18 05:50 Metamyelocytes % 0 % 02/28/18 05:50 Myelocytes % 0 % 02/28/18 05:50 Promyelocytes % 0 % 02/28/18 05:50 Blast Cells % 0 % 02/28/18 05:50 Nucleated RBC % Not Reportable 02/28/18 05:50 Seg Neutrophils # 6.5 K/mm3 (1.8-7.7) 02/27/18 20:11 Seg Neutrophils # Man 5.2 K/mm3 (1.8-7.7) 02/28/18 05:50 Band Neutrophils # 1.1 K/mm3 02/28/18 05:50 Lymphocytes # (Manual) 0.4 K/mm3 (1.2-5.4) L 02/28/18 05:50 Abs React Lymphs (Man) 0.0 K/mm3 02/28/18 05:50 Monocytes # (Manual) 0.1 K/mm3 (0.0-0.8) 02/28/18 05:50 Eosinophils # (Manual) 0.0 K/mm3 (0.0-0.4) 02/28/18 05:50 Basophils # (Manual) 0.0 K/mm3 (0.0-0.1) 02/28/18 05:50 Metamyelocytes # 0.0 K/mm3 02/28/18 05:50 Myelocytes # 0.0 K/mm3 02/28/18 05:50 Promyelocytes # 0.0 K/mm3 02/28/18 05:50 Blast Cells # 0.0 K/mm3 02/28/18 05:50 WBC Morphology Not Reportable 02/28/18 05:50 Hypersegmented Neuts Not Reportable 02/28/18 05:50 Hyposegmented Neuts Not Reportable 02/28/18 05:50 Hypogranular Neuts Not Reportable 02/28/18 05:50 Smudge Cells Not Reportable 02/28/18 05:50 Toxic Granulation Not Reportable 02/28/18 05:50 Toxic Vacuolation Not Reportable 02/28/18 05:50 Dohle Bodies Not Reportable 02/28/18 05:50 Pelger-Huet Anomaly Not Reportable 02/28/18 05:50 Mikey Rods Not Reportable 02/28/18 05:50 Platelet Estimate Appears normal 02/28/18 05:50 Clumped Platelets Not Reportable 02/28/18 05:50 Plt Clumps, EDTA Not Reportable 02/28/18 05:50 Large Platelets Not Reportable 02/28/18 05:50 Giant Platelets Not Reportable 02/28/18 05:50 Platelet Satelliting Not Reportable 02/28/18 05:50 Plt Morphology Comment Not Reportable 02/28/18 05:50 RBC Morphology Not Reportable 02/28/18 05:50 Dimorphic RBCs Not Reportable 02/28/18 05:50 Polychromasia Few 02/28/18 05:50 Hypochromasia 1+ 02/28/18 05:50 Poikilocytosis Not Reportable 02/28/18 05:50 Anisocytosis 1+ 02/28/18 05:50 Microcytosis Not Reportable 02/28/18 05:50 Macrocytosis Not Reportable 02/28/18 05:50 Spherocytes Few 02/28/18 05:50 Pappenheimer Bodies Not Reportable 02/28/18 05:50 Sickle Cells Not Reportable 02/28/18 05:50 Target Cells Not Reportable 02/28/18 05:50 Tear Drop Cells Not Reportable 02/28/18 05:50 Ovalocytes Few 02/28/18 05:50 Helmet Cells Not Reportable 02/28/18 05:50 [place] Bodies Not Reportable 02/28/18 05:50 Adkins Rings Not Reportable 02/28/18 05:50 [place]sey Cells Not Reportable 02/28/18 05:50 Bite Cells Not Reportable 02/28/18 05:50 Crenated Cell Not Reportable 02/28/18 05:50 Elliptocytes Not Reportable 02/28/18 05:50 Acanthocytes (Spur) Not Reportable 02/28/18 05:50 Rouleaux Not Reportable 02/28/18 05:50 Hemoglobin C Crystals Not Reportable 02/28/18 05:50 Schistocytes Not Reportable 02/28/18 05:50 Malaria parasites Not Reportable 02/28/18 05:50 David Bodies Not Reportable 02/28/18 05:50 Hem Pathologist Commnt No 02/28/18 05:50 D-Dimer 1135.90 ng/mlDDU (0-234) H 02/27/18 20:11 POC ABG pH 7.507 (7.35-7.45) H 03/01/18 16:04 POC ABG pCO2 45.3 (35-45) H 03/01/18 16:04 POC ABG pO2 91 (80-105) 03/01/18 16:04 POC ABG HCO3 35.9 03/01/18 16:04 POC ABG Total CO2 37 03/01/18 16:04 POC ABG O2 Sat 98 03/01/18 16:04 POC ABG Base Excess 13 03/01/18 16:04 FiO2 35 % 03/01/18 16:04 Sodium 140 mmol/L (137-145) 02/28/18 07:22 Potassium 3.2 mmol/L (3.6-5.0) L D 02/28/18 09:29 Chloride 97.3 mmol/L (98-107) L 02/28/18 07:22 Carbon Dioxide 32 mmol/L (22-30) H 02/28/18 07:22 Anion Gap 13 mmol/L 02/28/18 07:22 BUN 12 mg/dL (9-20) 02/28/18 07:22 Creatinine 1.0 mg/dL (0.8-1.5) 02/28/18 07:22 Estimated GFR > 60 ml/min 02/28/18 07:22 BUN/Creatinine Ratio 12 % 02/28/18 07:22 Glucose 111 mg/dL (75-100) H 02/28/18 07:22 POC Glucose 119 (70-105) H 03/04/18 18:15 Lactic Acid 1.70 mmol/L (0.7-2.0) 02/27/18 21:16 Calcium 9.1 mg/dL (8.4-10.2) 02/28/18 07:22 Magnesium 1.60 mg/dL (1.7-2.3) L 02/28/18 09:29 Total Bilirubin 0.30 mg/dL (0.1-1.2) 02/27/18 20:11 AST 42 units/L (5-40) H 02/27/18 20:11 ALT 21 units/L (7-56) 02/27/18 20:11 Alkaline Phosphatase 93 units/L (35-129) 02/27/18 20:11 Total Creatine Kinase 47 units/L (55-170) L 02/28/18 07:27 CK-MB (CK-2) 1.1 ng/mL (0.0-4.0) 02/28/18 07:27 CK-MB (CK-2) Rel Index 2.3 (0-4) 02/28/18 07:27 Troponin T 0.063 ng/mL (0.00-0.029) H D 02/28/18 07:27 C-Reactive Protein 4.10 mg/dL (0.00-1.30) H 03/04/18 15:08 NT-Pro-B Natriuret Pep 3021 pg/mL (0-900) H 02/27/18 21:28 Total Protein 7.8 g/dL (6.3-8.2) 02/27/18 20:11 Albumin 3.1 g/dL (3.9-5) L 02/27/18 20:11 Albumin/Globulin Ratio 0.7 % 02/27/18 20:11 Triglycerides 92 mg/dL (2-149) 02/27/18 20:11 Cholesterol 128 mg/dL (50-199) 02/27/18 20:11 LDL Cholesterol Direct 71 mg/dL (50-130) 02/27/18 20:11 HDL Cholesterol 52 mg/dL (40-59) 02/27/18 20:11 Cholesterol/HDL Ratio 2.46 % 02/27/18 20:11 Urine Color Anitra (Yellow) 02/28/18 02:03 Urine Turbidity Cloudy (Clear) 02/28/18 02:03 Urine pH 5.0 (5.0-7.0) 02/28/18 02:03 Ur Specific [place] 1.029 (1.003-1.030) 02/28/18 02:03 Urine Protein 100 mg/dl mg/dL (Negative) 02/28/18 02:03 Urine Glucose (UA) Neg mg/dL (Negative) 02/28/18 02:03 Urine Ketones Neg mg/dL (Negative) 02/28/18 02:03 Urine Blood Neg (Negative) 02/28/18 02:03 Urine Nitrite Neg (Negative) 02/28/18 02:03 Urine Bilirubin Neg (Negative) 02/28/18 02:03 Urine Urobilinogen 2.0 mg/dL (<2.0) 02/28/18 02:03 Ur Leukocyte Esterase Lg (Negative) 02/28/18 02:03 Urine WBC (Auto) 80.0 /HPF (0.0-6.0) H 02/28/18 02:03 Urine RBC (Auto) 4.0 /HPF (0.0-6.0) 02/28/18 02:03 U Epithel Cells (Auto) 4.0 /HPF (0-13.0) 02/28/18 02:03 Urine Bacteria (Auto) 2+ /HPF (Negative) 02/28/18 02:03 Urine WBC Clumps 3+ /HPF 02/28/18 02:03 Hyaline Casts 98 /LPF 02/28/18 02:03 Urine Mucus 2+ /HPF 02/28/18 02:03 Urine Opiates Screen Presumptive negative 02/28/18 02:03 Urine Methadone Screen Presumptive negative 02/28/18 02:03 Ur Barbiturates Screen Presumptive negative 02/28/18 02:03 Ur Phencyclidine Scrn Presumptive negative 02/28/18 02:03 Ur Amphetamines Screen Presumptive negative 02/28/18 02:03 U Benzodiazepines Scrn Presumptive negative 02/28/18 02:03 Urine Cocaine Screen Presumptive negative 02/28/18 02:03 U Marijuana (THC) Screen Presumptive negative 02/28/18 02:03 Drugs of Abuse Note Disclamer 02/28/18 02:03
[2018-03-05] MEDS ORDERED: CATHFLO IV ONE ×2 (00:12→03:00)
[2018-03-05] MEDS ORDERED: WATER FOR INJ (PF) ONE (02:20)
[2018-03-05] MEDS: MAXIPIME/NS 2 GM/100 ML 2 GM/100 ML BAG IV SCH (05:45)
[2018-03-05] MEDS: DUONEB *Not for PRN Use IH SCH ×2 (08:27→14:59)
[2018-03-05] MEDS: PREVACID SOLUTAB FEEDTUBE SCH (10:54)
[2018-03-05] MEDS: Centrum Liq PO SCH (10:54)
[2018-03-05] MEDS: PERCOCET 5/325 PO PRN (10:57)
--- NOTE | 2018-03-05 13:02 | Progress Note ---
Assessment and Plan Acute hypoxemic respiratory failure, on mechanical ventilator support. Bilateral pulmonary infiltrates, pulmonary edema versus pneumonia. Acute encephalopathy, improved. Systemic inflammatory response syndrome. Possible bowel obstruction with dilated colon. Diabetes. History of hypertension. Recent gastrointestinal bleed. Anemia, macrocytic. Likely obstructive sleep apnea. Non-ST elevation myocardial infarction. - continue bronchodilators with pulmonary hygiene per RT - continue supplemental oxygen to keep sats > 90% - continue ABs for HCAP and per ID recs - continue mobility protocol for pressure ulcer prophylaxis - PT/OT - continue wound care per WCT - continue GI & DVT prophylaxis - advance diet per ST - continue glycemic control with SSI - prn KUB's re: colonic dilatation and passive decompression with rectal tube ( seen by surgeon and no intervention planned otherwise) - cardiology evaluation per attending - continue other care per attending / other consultants .... re-evaluate in am & prn Subjective Date of service: 03/05/18 Principal diagnosis: Acute hypoxemic respiratory failure; Bilateral pulmonary infiltrates; Acut Interval history: Patient is seen today for: Acute hypoxemic respiratory failure; Bilateral pulmonary infiltrates; Acute encephalopathy; SIRS Seen and examined at bedside; 24hour events reviewed; nursing and respiratory care staff consulted; no adverse overnight events reported to me; resting in bed ; Objective Vital Signs - 12hr 03/05/18 03/05/18 03/05/18 01:35 04:44 04:45 Temperature 97.7 F Pulse Rate 77 77 Pulse Rate [ Bilateral] Respiratory 24 24 24 Rate Respiratory Rate [Bilateral ] Blood Pressure Blood Pressure 136/74 [Left] O2 Sat by Pulse 97 97 Oximetry 03/05/18 03/05/18 03/05/18 06:20 07:39 08:27 Temperature 97.5 F L Pulse Rate 79 Pulse Rate [ 89 Bilateral] Respiratory 16 Rate Respiratory 20 Rate [Bilateral ] Blood Pressure 140/85 Blood Pressure [Left] O2 Sat by Pulse 98 92 Oximetry 03/05/18 03/05/18 03/05/18 08:37 10:00 12:44 Temperature 97.5 F L Pulse Rate 79 78 Pulse Rate [ 92 H Bilateral] Respiratory 18 Rate Respiratory 20 Rate [Bilateral ] Blood Pressure 137/87 Blood Pressure [Left] O2 Sat by Pulse 97 94 Oximetry Constitutional: no acute distress, alert, other (Morbidly obese AAM, normocephalic and atraumatic) Eyes: non-icteric ENT: oropharynx moist, other (extubated) Neck: supple, no lymphadenopathy, no JVD, other (No thyromegaly) Effort: mildly labored Ascultation: Bilateral: diminished breath sounds, rhonchi (scant) Percussion: Bilateral: not dull Cardiovascular: regular rate and rhythm, other (No R/M) Gastrointestinal: normoactive bowel sounds, soft, non-tender, non-distended, other (No palpable HSM) Integumentary: cellulitis, decubitus ulcer Extremities: no cyanosis, pulses normal, edema, other (wound to right dunn) Neurologic: normal mental status, non-focal exam, pupils equal and round, CN II- XII normal Psychiatric: mood appropriate, affect normal CBC and BMP: 02/28/18 05:50 02/28/18 09:29 ABG, PT/INR, D-dimer: ABG POC ABG pH 7.507 (7.35-7.45) H 03/01/18 16:04 POC ABG pCO2 45.3 (35-45) H 03/01/18 16:04 POC ABG pO2 91 (80-105) 03/01/18 16:04 POC ABG HCO3 35.9 03/01/18 16:04 POC ABG Total CO2 37 03/01/18 16:04 POC ABG O2 Sat 98 03/01/18 16:04 PT/INR, D-dimer D-Dimer 1135.90 ng/mlDDU (0-234) H 02/27/18 20:11 Abnormal lab findings: Abnormal Labs 02/27/18 02/27/18 02/27/18 20:11 20:11 20:11 RBC 3.06 L Hgb 8.8 L Hct 29.1 L MCV 95 H MCHC 30 L RDW 18.0 H Lymph % (Auto) 9.2 L Early % (Auto) 12.3 H Lymph # 0.8 L Early # 1.0 H Seg Neutrophils % 78.1 H Seg Neuts % (Manual) Lymphocytes % (Manual) Lymphocytes # (Manual) D-Dimer 1135.90 H POC ABG pH POC ABG pCO2 POC ABG pO2 Potassium Chloride 93.7 L Carbon Dioxide Glucose POC Glucose Lactic Acid Magnesium AST 42 H Total Creatine Kinase 51 L Troponin T 0.046 H C-Reactive Protein NT-Pro-B Natriuret Pep Albumin 3.1 L Urine WBC (Auto) 02/27/18 02/27/18 02/27/18 20:11 20:25 21:28 RBC Hgb Hct MCV MCHC RDW Lymph % (Auto) Early % (Auto) Lymph # Early # Seg Neutrophils % Seg Neuts % (Manual) Lymphocytes % (Manual) Lymphocytes # (Manual) D-Dimer POC ABG pH POC ABG pCO2 60.6 H POC ABG pO2 269 H Potassium Chloride Carbon Dioxide Glucose POC Glucose Lactic Acid 3.50 H* Magnesium AST Total Creatine Kinase Troponin T C-Reactive Protein NT-Pro-B Natriuret Pep 3021 H Albumin Urine WBC (Auto) 02/27/18 02/28/18 02/28/18 23:59 01:46 02:03 RBC Hgb Hct MCV MCHC RDW Lymph % (Auto) Early % (Auto) Lymph # Early # Seg Neutrophils % Seg Neuts % (Manual) Lymphocytes % (Manual) Lymphocytes # (Manual) D-Dimer POC ABG pH POC ABG pCO2 POC ABG pO2 Potassium Chloride Carbon Dioxide Glucose POC Glucose Lactic Acid Magnesium AST Total Creatine Kinase 34 L 41 L Troponin T 0.042 H 0.046 H C-Reactive Protein NT-Pro-B Natriuret Pep Albumin Urine WBC (Auto) 80.0 H 02/28/18 02/28/18 02/28/18 05:50 07:22 07:27 RBC 2.85 L Hgb 8.2 L Hct 25.2 L MCV MCHC RDW 17.8 H Lymph % (Auto) Early % (Auto) Lymph # Early # Seg Neutrophils % Seg Neuts % (Manual) 77.0 H Lymphocytes % (Manual) 6.0 L Lymphocytes # (Manual) 0.4 L D-Dimer POC ABG pH POC ABG pCO2 POC ABG pO2 Potassium 2.6 L* D Chloride 97.3 L Carbon Dioxide 32 H Glucose 111 H POC Glucose Lactic Acid Magnesium AST Total Creatine Kinase 47 L Troponin T 0.063 H D C-Reactive Protein NT-Pro-B Natriuret Pep Albumin Urine WBC (Auto) 02/28/18 02/28/18 02/28/18 09:29 09:29 10:53 RBC Hgb Hct MCV MCHC RDW Lymph % (Auto) Early % (Auto) Lymph # Early # Seg Neutrophils % Seg Neuts % (Manual) Lymphocytes % (Manual) Lymphocytes # (Manual) D-Dimer POC ABG pH 7.510 H POC ABG pCO2 48.8 H POC ABG pO2 70 L Potassium 3.2 L D Chloride Carbon Dioxide Glucose POC Glucose Lactic Acid Magnesium 1.60 L AST Total Creatine Kinase Troponin T C-Reactive Protein 5.30 H NT-Pro-B Natriuret Pep Albumin Urine WBC (Auto) 02/28/18 02/28/18 03/01/18 13:20 18:44 00:16 RBC Hgb Hct MCV MCHC RDW Lymph % (Auto) Early % (Auto) Lymph # Early # Seg Neutrophils % Seg Neuts % (Manual) Lymphocytes % (Manual) Lymphocytes # (Manual) D-Dimer POC ABG pH POC ABG pCO2 POC ABG pO2 Potassium Chloride Carbon Dioxide Glucose POC Glucose 128 H 132 H 110 H Lactic Acid Magnesium AST Total Creatine Kinase Troponin T C-Reactive Protein NT-Pro-B Natriuret Pep Albumin Urine WBC (Auto) 03/01/18 03/01/18 03/01/18 05:28 11:39 16:04 RBC Hgb Hct MCV MCHC RDW Lymph % (Auto) Early % (Auto) Lymph # Early # Seg Neutrophils % Seg Neuts % (Manual) Lymphocytes % (Manual) Lymphocytes # (Manual) D-Dimer POC ABG pH 7.507 H POC ABG pCO2 45.3 H POC ABG pO2 Potassium Chloride Carbon Dioxide Glucose POC Glucose 117 H 113 H Lactic Acid Magnesium AST Total Creatine Kinase Troponin T C-Reactive Protein NT-Pro-B Natriuret Pep Albumin Urine WBC (Auto) 03/01/18 03/02/18 03/02/18 18:48 00:40 06:07 RBC Hgb Hct MCV MCHC RDW Lymph % (Auto) Early % (Auto) Lymph # Early # Seg Neutrophils % Seg Neuts % (Manual) Lymphocytes % (Manual) Lymphocytes # (Manual) D-Dimer POC ABG pH POC ABG pCO2 POC ABG pO2 Potassium Chloride Carbon Dioxide Glucose POC Glucose 110 H 120 H 109 H Lactic Acid Magnesium AST Total Creatine Kinase Troponin T C-Reactive Protein NT-Pro-B Natriuret Pep Albumin Urine WBC (Auto) 03/02/18 03/02/18 03/03/18 11:39 16:03 11:42 RBC Hgb Hct MCV MCHC RDW Lymph % (Auto) Early % (Auto) Lymph # Early # Seg Neutrophils % Seg Neuts % (Manual) Lymphocytes % (Manual) Lymphocytes # (Manual) D-Dimer POC ABG pH POC ABG pCO2 POC ABG pO2 Potassium Chloride Carbon Dioxide Glucose POC Glucose 125 H 134 H 130 H Lactic Acid Magnesium AST Total Creatine Kinase Troponin T C-Reactive Protein NT-Pro-B Natriuret Pep Albumin Urine WBC (Auto) 03/03/18 03/03/18 03/04/18 18:13 21:02 06:03 RBC Hgb Hct MCV MCHC RDW Lymph % (Auto) Early % (Auto) Lymph # Early # Seg Neutrophils % Seg Neuts % (Manual) Lymphocytes % (Manual) Lymphocytes # (Manual) D-Dimer POC ABG pH POC ABG pCO2 POC ABG pO2 Potassium Chloride Carbon Dioxide Glucose POC Glucose 108 H 133 H 108 H Lactic Acid Magnesium AST Total Creatine Kinase Troponin T C-Reactive Protein NT-Pro-B Natriuret Pep Albumin Urine WBC (Auto) 03/04/18 03/04/18 03/04/18 12:19 15:08 18:15 RBC Hgb Hct MCV MCHC RDW Lymph % (Auto) Early % (Auto) Lymph # Early # Seg Neutrophils % Seg Neuts % (Manual) Lymphocytes % (Manual) Lymphocytes # (Manual) D-Dimer POC ABG pH POC ABG pCO2 POC ABG pO2 Potassium Chloride Carbon Dioxide Glucose POC Glucose 128 H 119 H Lactic Acid Magnesium AST Total Creatine Kinase Troponin T C-Reactive Protein 4.10 H NT-Pro-B Natriuret Pep Albumin Urine WBC (Auto) 03/04/18 03/05/18 23:48 05:00 RBC Hgb Hct MCV MCHC RDW Lymph % (Auto) Early % (Auto) Lymph # Early # Seg Neutrophils % Seg Neuts % (Manual) Lymphocytes % (Manual) Lymphocytes # (Manual) D-Dimer POC ABG pH POC ABG pCO2 POC ABG pO2 Potassium Chloride Carbon Dioxide Glucose POC Glucose 130 H 107 H Lactic Acid Magnesium AST Total Creatine Kinase Troponin T C-Reactive Protein NT-Pro-B Natriuret Pep Albumin Urine WBC (Auto) Allied health notes reviewed: nursing
--- NOTE | 2018-03-05 15:13 | Discharge Summary ---
Providers - Providers Date of Admission: 02/28/18 01:38 Date of discharge: 03/05/18 Attending physician: JEREMY ACOSTA 02/28/18 00:39 Consult to Physician [CONS] Routine Comment: Dr. Singer spoke with Dr. Mitchell @ 0024 Consulting Provider: FELIPA MITCHELL Physician Instructions: Reason For Exam: dilated colon. 02/28/18 02:10 Consult to Wound/ET Nurse [CONS] Routine Reason For Exam: wound eval 02/28/18 03:46 Consult to Physician [CONS] Routine Comment: Spoke with Dr. Beckford @ 0501 Consulting Provider: MARTA BECKFORD Physician Instructions: Reason For Exam: cc 02/28/18 08:21 Consult to Physician [CONS] Routine Comment: Consulting Provider: PRINCE TEE Physician Instructions: Reason For Exam: Suspected c diff 02/28/18 08:23 Consult to Physician [CONS] Routine Comment: Consulting Provider: THELMA JENNINGS Physician Instructions: Reason For Exam: sepsis 02/28/18 11:10 Consult to PICC Line RN [CONS] Routine Reason For Exam: needs access for blood draws and IV meds Type Line:: PICC 02/28/18 11:11 Consult to Dietitian/Nutrition [CONS] Routine Physician Instructions: Reason For Exam: write and manage tube feeds Reason for Consult: Evaluate nutritional intake 02/28/18 11:42 Consult to Wound/ET Nurse [CONS] Urgent Reason For Exam: wound eval Primary care physician: [employer] ARCHITECT Hospitalization Condition: Stable Hospital course: Patient is a 62 yo man from [facility] with a history of functional quadriplegia x 2-3 months from [place], Debility, BLE Lymphedema, Chronic hypoxic Respiratory Failure, HTN, DM, Atrial Fib on therapeutic anticoagulation, Obesity Hypoventilation and LEYDI on cpap who presented to ED for evaluation of decreased responsiveness and shortness of breath. He was intubated upon admission. Acute on chronic hypoxic respiratory failure on MV extubated on 03/01 Pneumonia, suspected aspiration type, poa cont abx, today will be last day, ID on board Urinary tract infection ruled out, u cx neg [place] syndrome; Dilatation of the large intestine, Partial bowel obstruction conservative mgt, advanced diet GI input appreciated Abnormal cardiac enzymes, likely demand ischemia conservative mgt, no CP Chronic med problems are below, continue chronic meds Hypertension Diabetes A. fib with hypercoaguable state; blood thinners dc due to recent GIB Lymphedema- lasix Lower Extremity and sacral wounds- wound care Dispo; back to [facility] today Disposition: [id number] [facility] Time spent for discharge: 32 minutes Core Measure Documentation - Palliative Care Palliative Care/ Comfort Measures: Not Applicable - Core Measures Any of the following diagnoses?: none - VTE Discharge Requirements Deep Vein Thrombosis/Pulmonary Embolism Present on Admission: No Has pt received <5 days of overlap therapy or INR<2.0: No Anticoagulant overlap therapy prescribed at discharge: No Contraindication No Overlap Therapy order at DC: Not Indicated Exam - Physical Exam Narrative exam: General.: Appears well, no distress, nontoxic, morbidly obese HEENT: Moist mucous membranes, extraocular muscles intact, no lymphadenopathy Neck: supple Cardiac: S1-S2 heard Lungs: clear to auscultation bilaterally Abdomen: soft , nontender, nondistended, bowel sounds positive Extremities: no edema clubbing or cyanosis Skin: no rash or lesions Neurologic: moves all extremities - Constitutional Vitals: Temp Pulse Resp BP Pulse Ox 97.5 F L 78 18 137/87 94 03/05/18 12:44 03/05/18 12:44 03/05/18 12:44 03/05/18 12:44 03/05/18 12:44 Plan Activity: other (no strenous activity until cleared by PCP) Diet: per dietitian instruction Follow up with: PRIMARY MD BUCK [Primary Care Provider] - 3-5 Days
[2018-03-05 16:02] VITALS: BP 139/81
--- NOTE | 2018-03-05 16:18 | Progress Note ---
Assessment and Plan Assessment: Assessment: 1) Sepsis: Improved.. Etiology unclear ? pneumonia ? colitis ? cholecystitis ? left leg infection -Lactic acid 3.5. -CRP 5.3--> 4,1 - BC- ngtd -Respiratory - Normal leonidas -Urine Culture - Contaminated 2) Presumed pneumonia: ? CAP ? aspiration ? HAP -Chest x-ray show bilateral CHF changes and atelectasis to the right lower lobe. -CTA of the chest show bilateral atelectasis versus infiltrates. 3) Diarrhea: reported by ED staff but none since admission to ICU -CT abdomen showed distended transverse colo 4) Distended GB ? acute cholecystitis -CT abdomen showed gallbladder and mild pericholecystic fluid. -CT 02/28-dilated colon. CT scan showed dilated transverse colon but contrast extending to the rectum with no evidence of obstruction. etiology - possible developing Ogilvies. -HIDA scan cannot be done/patient morbidly obese 5) History of hypertension 6) Diabetes 7) A. fib 8) Left leg Lymphedema 9) Chronic respiratory failure 10) Acute encephalopathy 11) Recent GI bleed 12) Linezolid and vanco allergies Plan: -f/u on Procalcitonin - f/u on Wound care consult to be seen today. - monitor off abx I am signing off Stacey Pizarro MD Infectious Diseases Specialist [facility] ([facility] M [phone] O [phone] Subjective Date of service: 03/05/18 Principal diagnosis: Acute hypoxemic respiratory failure; Bilateral pulmonary infiltrates; Acut Interval history: Feels better, no fever Microbiology: Blood cultures: 02/27 ngtd Respiratory cultures: 02/27 TA ngtd Current Antimicrobials: none Previous Antimicrobials:Zosyn PO vanco flagyl cefepime Objective - Exam Narrative Exam: General appearance:alert talking Eyes: anicteric sclerae, moist conjunctivae; no lid-lag; PERRLA HENT: Atraumatic; oropharynx clear Neck: Trachea midline; supple, no thyromegaly or lymphadenopathy Lungs: coarse BS ko CV: RRR, no murmurs Abdomen: Soft, non-tender; no masses or hepatosplenomegaly Extremities:+ LEFT LEG LYMPHEDEMA. PATIENT HAS THICK ROCK LIKE PATCHES ON HIS LEG. MORBIDLY OBESE. DOES NOT AMBULATE. OPEN AREA MEASURES [id number]. BLEEDS EASILY. NO ODOR NOTED. MODERATE AMOUNT OF BLOODY DRAINAGE. Skin: +forehead scar Psych: normal mood Neuro: alert and oriented moving all extremities Lines: No CVL / PICC - Constitutional Vitals: Vital Signs Temp Pulse Resp BP Pulse Ox 97.5 F L 82 18 139/81 97 03/05/18 12:44 03/05/18 16:01 03/05/18 16:01 03/05/18 16:01 03/05/18 16:01 Temperature -Last 24 Hours Temperature 97.5 F Temperature 97.5 F Temperature 97.7 F Temperature 97.7 F Temperature 97.7 F - Labs CBC & Chem 7: 02/28/18 05:50 02/28/18 09:29 Labs: Abnormal lab results 03/04/18 03/04/18 03/04/18 Range/Units 12:19 15:08 18:15 POC Glucose 128 H 119 H (70-105) C-Reactive Protein 4.10 H (0.00-1.30) mg/dL 03/04/18 03/05/18 03/05/18 Range/Units 23:48 05:00 12:43 POC Glucose 130 H 107 H 118 H (70-105) C-Reactive Protein (0.00-1.30) mg/dL
== END 2018-03-05 17:33 | DRG 871 ==
LOC: ED 18:41 → CC1 02-28 01:38 → 4A 03-02 18:51
PROVIDERS: ADMIT Internal Medicine; ATTEND Internal Medicine
PROC: 5A1945Z Respiratory Ventilation, 24-96 Consecutive Hours (ICD-10-PCS; 2018-02-27)
PROC: 0BH17EZ Insertion of Endotracheal Airway into Trachea, Via Natural or Artificial Opening (ICD-10-PCS; 2018-02-27)
PROC: 02HV33Z Insertion of Infusion Device into Superior Vena Cava, Percutaneous Approach (ICD-10-PCS; principal; 2018-02-28)
PROC: 4A033R1 Measurement of Arterial Saturation, Peripheral, Percutaneous Approach (ICD-10-PCS; 2018-03-01)
PROC: 5A09457 Assistance with Respiratory Ventilation, 24-96 Consecutive Hours, Continuous Positive Airway Pressure (ICD-10-PCS; 2018-03-01)
DX: A41.9 Sepsis, unspecified organism (principal); G93.40 Encephalopathy, unspecified; J96.21 Acute and chronic respiratory failure with hypoxia; J69.0 Pneumonitis due to inhalation of food and vomit; I21.4 Non-ST elevation (NSTEMI) myocardial infarction; Z68.44 Body mass index [BMI] 60.0-69.9, adult; K56.600 Partial intestinal obstruction, unspecified as to cause; D68.59 Other primary thrombophilia; K59.8 Other specified functional intestinal disorders; K82.8 Other specified diseases of gallbladder; I10 Essential (primary) hypertension; E11.9 Type 2 diabetes mellitus without complications; I48.91 Unspecified atrial fibrillation; I89.0 Lymphedema, not elsewhere classified; E66.01 Morbid (severe) obesity due to excess calories; S31.000A Unspecified open wound of lower back and pelvis without penetration into retroperitoneum, initial encounter; D53.9 Nutritional anemia, unspecified; G47.33 Obstructive sleep apnea (adult) (pediatric); Z88.1 Allergy status to other antibiotic agents; Z79.899 Other long term (current) drug therapy; Z99.81 Dependence on supplemental oxygen; Y93.89 Activity, other specified; Y92.89 Other specified places as the place of occurrence of the external cause; Y99.8 Other external cause status; Z88.5 Allergy status to narcotic agent; Z82.49 Family history of ischemic heart disease and other diseases of the circulatory system
CPT/HCPCS: 36415; 36600; 70450; 71045; 71275; 74018; 74176; 80048; 80053; 80061; 80307; 81001; 82140; 82550; 82553; 82803; 82962; 83735; 83880; 84132; 84484; 85007; 85025; 85379; 86140; 87040; 87070; 87086; 87205; 93005; 93010; 93306; 94002; 94003; 94640; 94660; 94760; J0330; J0692; J0878; J1170; J1650; J1940; J2060; J2543; J2704; J2997; J3370; J3475; J3480; J7030; J7040; Q9967

== ENCOUNTER 2018-03-05 22:52 | Emergency (ER) | payer MEDICARE ==
--- NOTE | 2018-03-05 23:29 | Emergency Department Report ---
ED Shortness of Breath HPI - General Chief Complaint: Dyspnea/Respdistress Stated Complaint: SOB Time Seen by Provider: 03/05/18 23:08 Source: patient, EMS Mode of arrival: Stretcher Limitations: Physical Limitation - History of Present Illness Initial Comments: 62 yo male with history of chronic hypoxic resp failure, obstructive sleep apnea , obesity hypoventilation syndrome on 5 L O2 presents to ED complaining of shortness of breath. Patient was just discharged from here a few hours ago after an admission for acute on chronic respiratory failure requiring intubation. Patient states he has a history of PTSD, and when he arrived home, it brought back memories of his last admission when he up woke "with a tube down my throat." Patient states he had a panic attack. EMS was called. Patient states after they got him out of his home, he felt better. No complaints at this time. MD Complaint: shortness of breath -: Sudden, This evening Severity: moderate Consistency: now resolved Improves With: other (leaving the environment that he was in) Worsens With: nothing Known History Of: COPD Context: recent illness Associated Symptoms: denies other symptoms Treatments Prior to Arrival: oxygen - Related Data Home Oxygen Therapy: Yes Home Oxygen Amount: other (5L) Home Medications Medication Instructions Recorded Confirmed Last Taken ALBUTEROL NEB's [Proventil 0.083% 3 ml INHALATION Q4HR PRN 02/20/18 02/28/18 Unknown NEBS] Amiodarone [Cordarone 200 MG TAB] 400 mg PO DAILY 02/20/18 02/28/18 Unknown Ascorbic Acid [Vitamin C] 500 mg PO DAILY 02/20/18 02/28/18 Unknown AtorvaSTATin [Lipitor] 40 mg PO QHS 02/20/18 02/28/18 Unknown Dextrose [Glucose Gel] 1 applic PO PRN 02/20/18 02/28/18 Unknown Hydrocolloid Dressing [Duoderm] 1 applicatio TP Q3D 02/20/18 02/28/18 Unknown Hydrophilic Ointment [Dermafix] 1 applicatio TP BID 02/20/18 02/28/18 Unknown Ipratropium [place] [Atrovent Hfa] 0.02 ampul IH Q4H PRN 02/20/18 02/28/18 Unknown Loperamide HCl [Loperamide] 2 mg PO Q6HR PRN 02/20/18 02/28/18 Unknown Miconazole Nitrate 1 applic TP BID 02/20/18 02/28/18 Unknown Multivit-Min/Iron/Folic Acid/K 1 tab PO DAILY 02/20/18 02/28/18 Unknown [Adults Multivitamin Tablet] Pantoprazole [Protonix TAB] 40 mg PO DAILY 02/20/18 02/28/18 Unknown Sodium Bicarbonate 650 mg PO DAILY 02/20/18 02/28/18 Unknown oxyCODONE [Roxicodone TAB] 5 mg PO Q6H PRN 02/20/18 02/28/18 Unknown Allergies Allergy/AdvReac Type Severity Reaction Status Date / Time linezolid Allergy Unknown Verified 02/19/18 14:30 morphine Allergy Unknown Verified 02/19/18 14:30 vancomycin Allergy Unknown Verified 02/19/18 14:30 ED Review of Systems ROS: Stated complaint: SOB Other details as noted in HPI Comment: All other systems reviewed and negative Constitutional: denies: fever Respiratory: shortness of breath. denies: cough Cardiovascular: denies: chest pain, palpitations Gastrointestinal: denies: vomiting Neurological: denies: headache ED Past Medical Hx - Past Medical History Previous Medical History?: Yes Hx Hypertension: Yes Hx Congestive Heart Failure: Yes Hx Diabetes: Yes Hx Deep Vein Thrombosis: No Hx Renal Disease: Yes (ARF) Hx COPD: Yes Additional medical history: encephalopathy. afib. Chronic respiratory Failure - Surgical History Past Surgical History?: No Hx Pacemaker: No Hx Internal Defibrillator: No - Social History Smoking Status: Former Smoker Substance Use Type: Prescribed - Medications Home Medications: Home Medications Medication Instructions Recorded Confirmed Last Taken Type ALBUTEROL NEB's [Proventil 0.083% 3 ml INHALATION Q4HR PRN 02/20/18 02/28/18 Unknown History NEBS] Amiodarone [Cordarone 200 MG TAB] 400 mg PO DAILY 02/20/18 02/28/18 Unknown History Ascorbic Acid [Vitamin C] 500 mg PO DAILY 02/20/18 02/28/18 Unknown History AtorvaSTATin [Lipitor] 40 mg PO QHS 02/20/18 02/28/18 Unknown History Dextrose [Glucose Gel] 1 applic PO PRN 02/20/18 02/28/18 Unknown History Hydrocolloid Dressing [Duoderm] 1 applicatio TP Q3D 02/20/18 02/28/18 Unknown History Hydrophilic Ointment [Dermafix] 1 applicatio TP BID 02/20/18 02/28/18 Unknown History Ipratropium [place] [Atrovent Hfa] 0.02 ampul IH Q4H PRN 02/20/18 02/28/18 Unknown History Loperamide HCl [Loperamide] 2 mg PO Q6HR PRN 02/20/18 02/28/18 Unknown History Miconazole Nitrate 1 applic TP BID 02/20/18 02/28/18 Unknown History Multivit-Min/Iron/Folic Acid/K 1 tab PO DAILY 02/20/18 02/28/18 Unknown History [Adults Multivitamin Tablet] Pantoprazole [Protonix TAB] 40 mg PO DAILY 02/20/18 02/28/18 Unknown History Sodium Bicarbonate 650 mg PO DAILY 02/20/18 02/28/18 Unknown History oxyCODONE [Roxicodone TAB] 5 mg PO Q6H PRN 02/20/18 02/28/18 Unknown History ED Physical Exam - General Limitations: Physical Limitation General appearance: alert, in no apparent distress, obese - Head Head exam: Present: atraumatic, normocephalic - Eye Eye exam: Present: normal appearance - ENT ENT exam: Present: mucous membranes moist - Neck Neck exam: Present: normal inspection - Respiratory Respiratory exam: Present: normal lung sounds bilaterally. Absent: respiratory distress - Cardiovascular Cardiovascular Exam: Present: regular rate, other (irregular rhythm) - GI/Abdominal GI/Abdominal exam: Present: soft. Absent: tenderness - Extremities Exam Extremities exam: Present: other (lymphedema present BLE) - Neurological Exam Neurological exam: Present: alert, oriented X3 - Psychiatric Psychiatric exam: Present: normal affect, normal mood - Skin Skin exam: Present: warm, dry ED Course Vital Signs 03/05/18 03/06/18 23:07 01:40 Temperature 98 F Pulse Rate 93 H 80 Respiratory 18 22 Rate Blood Pressure 142/84 120/88 [Left] O2 Sat by Pulse 94 98 Oximetry ED Medical Decision Making - EKG Data -: EKG Interpreted by Nd EKG shows normal: axis, QRS complexes Rate: normal - EKG Data When compared to previous EKG there are: no significant change (compared to EKG from 02/27/18) Interpretation: other (T wave inv anterolateral leads) - Radiology Data Radiology results: report reviewed, image reviewed - Medical Decision Making 62-year-old male presents to ED with shortness of breath now resolved. Patient had an anxiety attack. Patient in noacute distress, O2 sats normal. Reports is feeling much better. Chest x-ray not dramatically different compared to chest x-ray during admission. Since patient is no longer symptomatic and was cleared for discharge earlier today by hospitalist, will DC home at this time - Differential Diagnosis anxiety, pulmonary edema, COPD exacerbation Critical care attestation.: If time is entered above; I have spent that time in minutes in the direct care of this critically ill patient, excluding procedure time. ED Disposition Clinical Impression: Dyspnea, Anxiety attack Disposition: DC-01 TO HOME OR SELFCARE Is pt being admited?: No Condition: Stable Instructions: Anxiety (ED) Referrals: PRIMARY CARE, [Primary Care Provider] - 3-5 Days Time of Disposition: 01:15
--- NOTE | 2018-03-05 23:43 | XRay Report ---
FINAL REPORT PROCEDURE: XR CHEST 1V AP TECHNIQUE: Chest radiograph anteroposterior view. CPT 47880 HISTORY: Shortness of breath COMPARISON: 03/01/2018 FINDINGS: The heart is enlarged. There is decreased inspiration since the prior study. There are increased bibasilar infiltrates. There are no pleural effusions or pneumothoraces. The NG tube and ET tube have been removed. The right-sided PICC line is in place. The tip is in the superior vena cava. The bony and soft tissue structures are within normal limits.. IMPRESSION: Cardiomegaly. There is suboptimal inspiration. There are increased bibasilar infiltrates. Right-sided PICC line is in proper position..
--- NOTE | 2018-03-06 00:29 | XRay Report ---
FINAL REPORT PROCEDURE: XR CHEST 1V AP TECHNIQUE: Chest radiograph anteroposterior view. CPT 68219 HISTORY: sob COMPARISON: 03/01/2018 FINDINGS: Heart: Heart is enlarged Mediastinum/Vessels: Normal. Lungs/Pleural space: There is suboptimal inspiration. There are right perihilar lower lobe infiltrates. There are small bilateral pleural effusions. There is no pneumothorax.. Bony thorax: No acute osseous abnormality. Life support devices: There is right-sided PICC line. The tip is in the superior vena cava. There is distended air-filled bowel under the diaphragm.. IMPRESSION: Heart is enlarged There is suboptimal inspiration. There are right perihilar lower lobe infiltrates. There are small bilateral pleural effusions. There is no pneumothorax.. There is right-sided PICC line. The tip is in the superior vena cava. .
[2018-03-06 01:43] VITALS: BP 120/88
== END 2018-03-06 02:00 | disposition home or self-care (01) ==
LOC: ED 22:52
DX: R06.00 Dyspnea, unspecified (principal); F41.8 Other specified anxiety disorders; I10 Essential (primary) hypertension; I50.9 Heart failure, unspecified; E11.9 Type 2 diabetes mellitus without complications; J44.9 Chronic obstructive pulmonary disease, unspecified; G93.40 Encephalopathy, unspecified; I48.91 Unspecified atrial fibrillation; Z87.891 Personal history of nicotine dependence; Z88.1 Allergy status to other antibiotic agents; Z88.6 Allergy status to analgesic agent
CPT/HCPCS: 71045; 93005; 93010; 99284

== ENCOUNTER 2018-03-06 14:19 | Emergency (ER) | payer MEDICARE ==
--- NOTE | 2018-03-06 14:32 | Emergency Department Report ---
ED CPR HPI - General Chief Complaint: Cardiac Arrest/CPR Stated Complaint: CARDIAC ARREST Time Seen by Provider: 03/06/18 14:24 Source: EMS (verbal report received from EMS.ems notes not available at time of chart dictation), RN notes reviewed, old records reviewed Limitations: Altered Mental Status - History of Present Illness Initial Comments: This is a 62-year-old gentleman who is brought to the hospital by EMS as a cardiac arrest. Unknown when his last known well time is. As per verbal report from EMS, presenting rhythm is asystole. EMS was unable to intubate the patient, he did provide bag valve mask ventilation, right lower extremity intraosseous IV was inserted by EMS. EMS reported patient was pulseless for at least a half hour prior to arrival to the emergency room. Upon arrival to the emergency room, the patient is pulseless, pupils fixed and dilated, and monitor demonstrates asystole. Given the prolonged downtime, obvious signs of , resuscitation efforts are terminated secondary to medical futility. MD Complaint: found unresponsive -: unknown Place: NH/SNF Initial Findings in the Field: no pulse Treatments Prior to Arrival: BMV, chest compressions, epinephrine mgs # - Related Data Home Medications Medication Instructions Recorded Confirmed Last Taken ALBUTEROL NEB's [Proventil 0.083% 3 ml INHALATION Q4HR PRN 02/20/18 02/28/18 Unknown NEBS] Amiodarone [Cordarone 200 MG TAB] 400 mg PO DAILY 02/20/18 02/28/18 Unknown Ascorbic Acid [Vitamin C] 500 mg PO DAILY 02/20/18 02/28/18 Unknown AtorvaSTATin [Lipitor] 40 mg PO QHS 02/20/18 02/28/18 Unknown Dextrose [Glucose Gel] 1 applic PO PRN 02/20/18 02/28/18 Unknown Hydrocolloid Dressing [Duoderm] 1 applicatio TP Q3D 02/20/18 02/28/18 Unknown Hydrophilic Ointment [Dermafix] 1 applicatio TP BID 02/20/18 02/28/18 Unknown Ipratropium [place] [Atrovent Hfa] 0.02 ampul IH Q4H PRN 02/20/18 02/28/18 Unknown Loperamide HCl [Loperamide] 2 mg PO Q6HR PRN 02/20/18 02/28/18 Unknown Miconazole Nitrate 1 applic TP BID 02/20/18 02/28/18 Unknown Multivit-Min/Iron/Folic Acid/K 1 tab PO DAILY 02/20/18 02/28/18 Unknown [Adults Multivitamin Tablet] Pantoprazole [Protonix TAB] 40 mg PO DAILY 02/20/18 02/28/18 Unknown Sodium Bicarbonate 650 mg PO DAILY 02/20/18 02/28/18 Unknown oxyCODONE [Roxicodone TAB] 5 mg PO Q6H PRN 02/20/18 02/28/18 Unknown Allergies Allergy/AdvReac Type Severity Reaction Status Date / Time linezolid Allergy Unknown Verified 02/19/18 14:30 morphine Allergy Unknown Verified 02/19/18 14:30 vancomycin Allergy Unknown Verified 02/19/18 14:30 ED Review of Systems ROS: Stated complaint: CARDIAC ARREST Other details as noted in HPI Comment: Unobtainable due to pts medical conditions ED Past Medical Hx - Past Medical History Hx Hypertension: Yes Hx Congestive Heart Failure: Yes Hx Diabetes: Yes Hx Deep Vein Thrombosis: No Hx Renal Disease: Yes (ARF) Hx COPD: Yes Additional medical history: encephalopathy. afib. Chronic respiratory Failure - Surgical History Hx Pacemaker: No Hx Internal Defibrillator: No - Social History Smoking Status: Former Smoker Substance Use Type: Prescribed - Medications Home Medications: Home Medications Medication Instructions Recorded Confirmed Last Taken Type ALBUTEROL NEB's [Proventil 0.083% 3 ml INHALATION Q4HR PRN 02/20/18 02/28/18 Unknown History NEBS] Amiodarone [Cordarone 200 MG TAB] 400 mg PO DAILY 02/20/18 02/28/18 Unknown History Ascorbic Acid [Vitamin C] 500 mg PO DAILY 02/20/18 02/28/18 Unknown History AtorvaSTATin [Lipitor] 40 mg PO QHS 02/20/18 02/28/18 Unknown History Dextrose [Glucose Gel] 1 applic PO PRN 02/20/18 02/28/18 Unknown History Hydrocolloid Dressing [Duoderm] 1 applicatio TP Q3D 02/20/18 02/28/18 Unknown History Hydrophilic Ointment [Dermafix] 1 applicatio TP BID 02/20/18 02/28/18 Unknown History Ipratropium [place] [Atrovent Hfa] 0.02 ampul IH Q4H PRN 02/20/18 02/28/18 Unknown History Loperamide HCl [Loperamide] 2 mg PO Q6HR PRN 02/20/18 02/28/18 Unknown History Miconazole Nitrate 1 applic TP BID 02/20/18 02/28/18 Unknown History Multivit-Min/Iron/Folic Acid/K 1 tab PO DAILY 02/20/18 02/28/18 Unknown History [Adults Multivitamin Tablet] Pantoprazole [Protonix TAB] 40 mg PO DAILY 02/20/18 02/28/18 Unknown History Sodium Bicarbonate 650 mg PO DAILY 02/20/18 02/28/18 Unknown History oxyCODONE [Roxicodone TAB] 5 mg PO Q6H PRN 02/20/18 02/28/18 Unknown History ED Physical Exam - General Limitations: Altered Mental Status, Other (nonverbal, nonresponsive) General appearance: other (nonverbal) - Head Head exam: Present: atraumatic - Eye Eye exam: Present: other (pupils fixed, dilated, do not react to light) - ENT ENT exam: Present: mucous membranes dry - Neck Neck exam: Present: normal inspection - Respiratory Respiratory exam: Present: other (no breath sounds are auscultated) - Cardiovascular Cardiovascular Exam: Present: other (patient is pulseless) - GI/Abdominal GI/Abdominal exam: Present: soft - exam: Present: normal inspection - Extremities Exam Extremities exam: Present: other (PICC line noted in the right upper extremity. Intraosseous IV noted in the right lower extremity) - Back Exam Back exam: Present: normal inspection - Neurological Exam Neurological exam: Present: other (nonverbal, GCS of 3) - Psychiatric Psychiatric exam: Present: other (patient is nonverbal) - Skin Skin exam: Present: dry ED Medical Decision Making - Medical Decision Making Differential diagnosis, including but not limited to: Anemia, bacteremia, pulmonary embolus, hemorrhage, cardiac arrest Critical care attestation.: If time is entered above; I have spent that time in minutes in the direct care of this critically ill patient, excluding procedure time. ED Disposition Clinical Impression: Cardiac arrest Disposition: DC-20 Is pt being admited?: No Does the pt Need Aspirin: No Condition: Undetermined
[2018-03-06 14:54] VITALS: BP 0/0
== END 2018-03-06 20:47 ==
LOC: ED 14:19
DX: I46.9 Cardiac arrest, cause unspecified (principal); I11.0 Hypertensive heart disease with heart failure; I50.9 Heart failure, unspecified; E11.9 Type 2 diabetes mellitus without complications; J44.9 Chronic obstructive pulmonary disease, unspecified; Z87.891 Personal history of nicotine dependence; Z88.6 Allergy status to analgesic agent; Z88.1 Allergy status to other antibiotic agents; Z88.8 Allergy status to other drugs, medicaments and biological substances
CPT/HCPCS: 99285